=== PATIENT | male | born 1955 | race Caucasian/White ===

== ENCOUNTER 2017-10-22 17:11 | Emergency (ER) | payer OTHER, SELFPAY ==
[2017-10-22] VITALS (55 sets, daily range): BP systolic 96–149; BP diastolic 51–73; PULSE 83–111; RESP 8–48; TEMP 36.4; O2SAT 87–99
--- NOTE | 2017-10-22 17:34 | DI.RAD_ITS ---
SYMPTOM/DIAGNOSIS: COUGH, SOB PORTABLE AP CHEST: Emphysematous changes are noted in the lungs. There is no pneumothorax or pleural effusion. The heart is unremarkable. The mediastinum is unremarkable. No bony abnormality is seen. Note is made of metal fragments superimposed over the left axilla, unchanged. Prominent central arteries are consistent with pulmonary arterial hypertension. SUMMARY: No evidence of acute cardiopulmonary disease.
[2017-10-22] MEDS: methylPREDNISolone SUCC 125 MG VIAL (17:35)
[2017-10-22] MEDS: Albuterol/Ipratropium 3 ML UPD VIAL 9 ML (17:35)
[2017-10-22] MEDS: Albuterol 2.5 MG/3 ML INH SOLN VIAL 5 MG (17:35)
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
[2017-10-22] MEDS: Albuterol 2.5 MG/3 ML INH SOLN VIAL UPD (17:39)
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
[2017-10-22 17:48] LABS: Abs Immature Grans 0.01 k/cumm (0.0-0.09); Absolute Basophil Count 0.03 k/cumm (0.0-0.2); Absolute Lymphocyte Count 0.97 k/cumm (1.2-3.4); Absolute Neutrophil Count 5.07 k/cumm (1.2-6.7); Basophils % 0.4; Eosinophils % 1.5; HCT 38.8 % (40.0-50.0); HGB 13.2 g/dL (13.5-17.5); Immature Grans % 0.1; Lymphocytes % 14.1; Mean Corpuscular Hemoglobin 31.5 pg (27.0-33.0); Mean Corpuscular Volume 92.6 fL (80-95); Mean Platelet Volume 9.2 fL (8.0-11.0); Monocytes % 10.2; Neutrophils % 73.7; Platelet Count 221 x1000/uL (130-400); RBC 4.19 m/cumm (4.50-6.00); RBC Distribution Width 13.1 % (11.8-14.1); White Blood Cell Count 6.88 k/cumm (4.4-10.8)
[2017-10-22 18:10] LABS: ALT 18 U/L (12-78); AST 11 U/L (15-37); Albumin 3.9 g/dL (3.4-5.0); Alkaline Phosphatase 44 U/L (46-116); Anion Gap 6.8 mmol/L (3-11); BUN 23 mg/dL (7-18); Bilirubin, Total 0.3 mg/dL (0.2-1.0); CO2 30.2 mmol/L (21.0-32.0); CREATININE 1.02 mg/dL (0.70-1.30); Calcium 8.9 mg/dL (8.5-10.1); Chloride 103 mmol/L (98-107); Glucose 137 mg/dL (70-100); Magnesium 1.7 mg/dL (1.8-2.4); NT-proBNP 212 pg/mL; Potassium 3.9 mmol/L (3.5-5.1); Sodium 140 mmol/L (136-145); Total Protein 7.1 g/dL (6.4-8.2)
[2017-10-22 18:12] LABS: Troponin I < 0.02 ng/mL (0.00-0.06)
[2017-10-22 18:21] LABS: D-Dimer 605 ng/mlFEU (<500)
--- NOTE | 2017-10-22 18:59 | DI.VRAD_ITS ---
EXAM: XR Chest, 1 View CLINICAL HISTORY: 62 years old, male; Signs and symptoms; Cough and shortness of breath; Patient HX: Cough, SOB; Additional info: R/O acute disease TECHNIQUE: Frontal view of the chest. COMPARISON: CR - CHEST 2 VIEWS PA,LAT 02/12/2017 1:24 PM FINDINGS: Lungs: Severe bilateral apical pulmonary emphysema. Hyperexpanded lungs consistent with COPD. No pulmonary consolidation. Pleural space: Unremarkable. No pneumothorax or pleural effusion. Heart: Unremarkable. No cardiomegaly. Mediastinum: Unremarkable. The mediastinal contour is unremarkable. Bones/joints: Unremarkable. No acute osseous abnormality identified. Soft tissues: Metal fragments superimposed over the left axilla, unchanged. Vasculature: Prominent central pulmonary arteries consistent with pulmonary arterial hypertension. IMPRESSION: No acute findings. Dictated and Authenticated by: Agapito Arzate MD. Ordering:JERARDO LUNSFORD MD
--- NOTE | 2017-10-22 19:14 | DI.CT_ITS ---
SYMPTOM/DIAGNOSIS: SOB, ELEVATED D DIMER, ? PE PE CHEST CT: CT angiography was performed with multi slice acquisition and multi planar and 3D reconstruction. The study was conducted according to the usual protocol with contrast enhancement. There is no evidence of pulmonary emboli. Atherosclerotic changes involving the aorta are identified. There is no aneurysm. Right lower lobe atelectasis versus pneumonia is demonstrated. Diffuse paraseptal and centrilobular pulmonary emphysema is demonstrated. There is no evidence of a pleural effusion or pneumothorax. The heart is unremarkable. No acute bony abnormality is seen. The soft tissues are unremarkable. There is no evidence of lymphadenopathy. SUMMARY: No evidence of PE. Right lower lobe atelectasis versus pneumonia is demonstrated.
[2017-10-22] MEDS: Albuterol 2.5 MG/3 ML INH SOLN VIAL 7.5 MG UPD (19:54)
[2017-10-22] MEDS: MAGNESIUM SULFATE 1 GM/100 ML BAG IVPB (19:55)
[2017-10-22] MEDS: Omnipaque 350 MG/ML 100 ML BTL IJ (20:30)
--- NOTE | 2017-10-22 20:37 | DI.VRAD_ITS ---
EXAM: CT Angiography Chest With Intravenous Contrast CLINICAL HISTORY: 62 years old, male; Signs and symptoms and abnormal findings; Abnormal diagnostic tests; Elevated d-dimer; Shortness of breath; Patient HX: SOB, elevated d-dimer; Additional info: R/O pe TECHNIQUE: Axial computed tomographic angiography images of the chest with intravenous contrast using pulmonary embolism protocol. MIP reconstructed images were created and reviewed. COMPARISON: SC - XR PORTABLE CHEST AP 10/22/2017 6:41 PM FINDINGS: Pulmonary arteries: Unremarkable. No pulmonary embolism. Aorta: Mild atherosclerosis of the thoracic aorta and origin of the great vessels. No thoracic aortic aneurysm. Lungs: Right lower lobe atelectasis versus small pneumonia. Diffuse paraseptal and centrilobular pulmonary emphysema. No mass. Pleural space: Unremarkable. No significant effusion. No pneumothorax. Heart: Unremarkable. No cardiomegaly. No significant pericardial effusion. No evidence of RV dysfunction. Bones/joints: No acute fracture. No dislocation. Soft tissues: Unremarkable. Lymph nodes: Unremarkable. No enlarged lymph nodes. IMPRESSION: 1. No pulmonary arterial embolism. 2. Right lower lobe atelectasis versus pneumonia. Dictated and Authenticated by: Agapito Arzate MD. Ordering:JERARDO LUNSFORD MD
[2017-10-22] MEDS: Albuterol 2.5 MG/3 ML INH SOLN VIAL 5 MG UPD (22:04)
[2017-10-22] MEDS: LEVOFLOXACIN 500 MG, LEVOFLOXACIN 250 MG 750 MG PO (22:08)
[2017-10-23] MEDS: Albuterol HFA 8 GM 60 PUFF INH IH (04:31)
--- NOTE | 2017-10-24 09:30 | PDOC.ERCMPRO ---
Care Management Progress Note 10/24/17-Pt. was seen for SOB by Dr. Amari Flowers. F/U request was faxed to [facility] as Dr. Schmitz is Pt's PCP. Pt has been scheduled for f/u on 10/24/17.
== END 2017-10-23 00:02 | disposition home or self-care (01) ==
PROVIDERS: Emergency Provider Physician Assistant; PCP Internal Medicine
DX: J44.0 Chronic obstructive pulmonary disease with (acute) lower respiratory infection (principal); J18.9 Pneumonia, unspecified organism; J20.9 Acute bronchitis, unspecified; R09.02 Hypoxemia; J06.9 Acute upper respiratory infection, unspecified; R79.1 Abnormal coagulation profile; E83.42 Hypomagnesemia; Z87.891 Personal history of nicotine dependence; I10 Essential (primary) hypertension
CPT/HCPCS: 36415; 71275; 80053; 93005; 94640; 96365; 96375; 99285; 71045; 83735; 83880; 84484; 85025; 85379; 93010; J2930; J3475; J3490; J7613; J7620

== ENCOUNTER 2017-11-08 01:52 | Outpatient (CLI) | payer OTHER, SELFPAY ==
--- NOTE | 2017-11-08 | PFT_ITS ---
PLEASE SEE SCANNED DOCUMENT FOR DETAILS PULMONARY FUNCTION TEST REPORT Patient identification - Jaison Quezada DATE OF - 53 DATE OF SERVICE - November 08, 2017 REQUESTING PROVIDER Lisa Barillas NP INTERPRETATION OF STUDY Spirometry shows severe obstructive airways disease with significant bronchodilator response. LUNG VOLUMES - Lung volumes show no evidence of restriction. There is moderate hyperinflation and air trapping. DIFFUSION CAPACITY - Mildly reduced even when corrected to alveolar volume. AIRWAY RESISTANCE - Elevated. IMPRESSION Severe obstructive airways disease with significant bronchodilator response. This is associated with moderate hyperinflation and air trapping and mild diffusion defect. Clinical correlation recommended. Lucinda Mcginnis M.D. AMBER/jamie T - 11/12/2017 SEE SCANNED DOCUMENT IN THE EMR FOR DATA AND GRAPHS
[2017-11-08] MEDS: Albuterol HFA 18 GM 200 PUFF INH IH (13:34)
[2017-11-08] MEDS: Inhaler, Assist Device 1 EACH MC (13:34)
== END 2017-11-08 02:12 ==
PROVIDERS: PCP Internal Medicine
DX: J44.1 Chronic obstructive pulmonary disease with (acute) exacerbation (principal)
CPT/HCPCS: 94060; 94150; 94726; 94729

== ENCOUNTER 2017-11-21 11:43 | Outpatient (CLI) | payer OTHER, SELFPAY ==
[2017-11-22 11:22] LABS: PSA, Screening 1.6 ng/ml (0-4.5)
== END 2017-11-21 12:03 ==
PROVIDERS: PCP Internal Medicine; Visit Provider Internal Medicine
DX: J44.9 Chronic obstructive pulmonary disease, unspecified (principal); R35.1 Nocturia; Z12.5 Encounter for screening for malignant neoplasm of prostate
CPT/HCPCS: 36415; 84153

== ENCOUNTER 2018-02-28 17:45 | Emergency (ER) | payer OTHER, SELFPAY ==
--- NOTE | 2018-02-28 17:54 | DI.RAD_ITS ---
SYMPTOM/DIAGNOSIS: WHEEZE, CRACKLES, ? PNEUMONIA PA AND LATERAL CHEST: Comparison is made with 02/12/17. Heart size and pulmonary vasculature are within normal limits. There is COPD. No infiltrates, effusions or pneumothoraces are identified. There is again seen metallic foreign body in the soft tissues of the left axilla. The bones are intact. IMPRESSION: No acute pulmonary process.
[2018-02-28 17:57] VITALS: BP 146/73; PULSE 72; RESP 18; TEMP 36.6; O2SAT 99
[2018-02-28] MEDS: Albuterol/Ipratropium 3 ML UPD VIAL 9 ML UPD (18:01)
[2018-02-28] MEDS: methylPREDNISolone SUCC 125 MG VIAL IVP (18:16)
[2018-02-28 18:17] VITALS: RESP 20
[2018-02-28 18:27] LABS: HCO3 (Venous) 32 mmol/L (22-28); TCO2 (Venous) 33 mmol/L (22-29); pCO2 (Venous) 59 mm/Hg (34-47); pH (Venous) 7.34 (7.32-7.43); pO2 (Venous) 28 mm/Hg (28-44)
[2018-02-28 18:28] LABS: O2 Sat (Venous) 46 % (70-80)
[2018-02-28 18:31] LABS: Abs Immature Grans 0.01 k/cumm (0.0-0.09); Absolute Basophil Count 0.04 k/cumm (0.0-0.2); Absolute Eosinophil Count 0.52 k/cumm (0.0-0.7); Absolute Lymphocyte Count 2.25 k/cumm (1.2-3.4); Absolute Monocyte Count 0.67 k/cumm (0.11-0.7); Basophils % 0.6; Eosinophils % 7.5; HCT 41.4 % (40.0-50.0); HGB 13.9 g/dL (13.5-17.5); Immature Grans % 0.1; Lymphocytes % 32.7; Mean Corp. HGB Concentration 33.6 g/dL (32.0-36.0); Mean Corpuscular Hemoglobin 31.2 pg (27.0-33.0); Mean Corpuscular Volume 92.8 fL (80-95); Mean Platelet Volume 9.1 fL (8.0-11.0); Monocytes % 9.7; Neutrophils % 49.4; Platelet Count 257 x1000/uL (130-400); RBC 4.46 m/cumm (4.50-6.00); RBC Distribution Width 13.6 % (11.8-14.1); White Blood Cell Count 6.89 k/cumm (4.4-10.8)
[2018-02-28 18:43] LABS: ALT 23 U/L (12-78); AST 13 U/L (15-37); Albumin 4.1 g/dL (3.4-5.0); Alkaline Phosphatase 49 U/L (46-116); Anion Gap 6.8 mmol/L (3-11); BUN 23 mg/dL (7-18); Bilirubin, Total 0.2 mg/dL (0.2-1.0); CO2 33.2 mmol/L (21.0-32.0); CREATININE 0.84 mg/dL (0.70-1.30); Calcium 9.5 mg/dL (8.5-10.1); Chloride 104 mmol/L (98-107); Glucose 87 mg/dL (70-100); Potassium 3.8 mmol/L (3.5-5.1); Sodium 144 mmol/L (136-145); Total Protein 7.6 g/dL (6.4-8.2)
[2018-02-28 18:47] LABS: Troponin I < 0.02 ng/mL (0.00-0.06)
--- NOTE | 2018-02-28 19:07 | DI.VRAD_ITS ---
EXAM: XR Chest, 2 Views EXAM DATE/TIME: 02/28/2018 5:55 PM CLINICAL HISTORY: 62 years old, male; Signs and symptoms; Cough TECHNIQUE: XR of the chest, 2 views. COMPARISON: SC XR PORTABLE CHEST AP 10/22/2017 6:41 PM FINDINGS: Lungs: Hyperexpanded lungs consistent with COPD. No pulmonary consolidation. Prominent central pulmonary arteries consistent with pulmonary arterial hypertension. Pleural space: Unremarkable. No pleural effusion. No pneumothorax. Heart/Mediastinum: Unremarkable. No cardiomegaly. Bones/joints: Unremarkable. Other findings: Metal fragments superimposed over the left axilla unchanged. IMPRESSION: No acute abnormality. Dictated and Authenticated by: Shahbaz Lucia MD. Ordering:RICARDO Ervin MD
[2018-02-28] MEDS: Albuterol/Ipratropium 3 ML UPD VIAL (19:20)
--- NOTE | 2018-02-28 19:22 | W.ED.GENAD ---
Discharge Plan Disposition Patient Disposition: HOME Condition: Good Discharge Details Chief Complaint: SOB Clinical Impression: COPD exacerbation Primary Care Provider: Coby Yost ED Provider: Arcadio Becerra Home Meds and New Rx's Prescriptions: New prednisone 50 MG tablet 50 mg PO DAILY Qty: 5 RF: 0 albuterol sulfate 90 mcg/actuation HFA aerosol inhaler 1 puff IH Q6H PRN (Reason: bronchospasm) Qty: 8 RF: 0 No Action albuterol sulfate 90 mcg/actuation HFA aerosol inhaler 2 puff IH QID RF: 0 metoprolol succinate 50 mg tablet extended release 24 hr 50 mg PO DAILY Qty: 90 RF: 3 nicotine (polacrilex) [Nicorette] 4 MG gum 1 piece of gum PO Q2H PRN RF: 0 ibuprofen 200 MG tablet 4 tab PO PRN RF: 0 ibuprofen-diphenhydramine cit [Advil PM] 1 EACH tablet 2 ea PO DAILY RF: 0 acetaminophen [Tylenol] 325 MG tablet 650 mg PO Q6H PRN PRNQty: 30 RF: 0 Discharge Instructions Instructions: COPD (Chronic Obstructive Pulmonary Disease) (ED) Additional Instructions: Please take your inhaler every 6 hours as directed. Please take the prednisone as directed. If you notice any worsening of your symptoms, or any new symptoms such as vomiting, diarrhea, fever, chills, shortness of breath, chest pain, numbness, weakness, or fainting , please return immediately to the emergency department for reevaluation. Please follow up with your primary care provider as soon as possible for reassessment and reevaluation. As always, it was a pleasure participating in your medical care today. Referrals: Coby Yost MD [Primary Care Provider] - Discharge Data Discharge Date/Time-TO BE ENTERED AT DEPARTURE: 02/28/18 21:52 Medical Decision Making This is a pleasant 62-year-old male who presents for evaluation of shortness of breath and cough. Cough is productive with a small amount of yellow sputum, he denies any systemic symptoms of fever or chills. He has associated shortness of breath, but denies any cardiac red flags of cardiac history, chest pain, chest pressure. Unfortunately the patient ran out of his albuterol today, which did not help his clinical scenario. Physical exam demonstrates notable wheezes throughout. Patient's signs and symptoms are clinically consistent with a COPD exacerbation and clinically inconsistent with ACS, PE, or severe pneumonia. Because of the patient's age and risk factors L, x-ray was ordered which shows hyperexpanded lungs consistent with COPD with no evidence of pneumonia or consolidation. Additionally the patient's iliac workup was benign. Laboratory workup demonstrates a very small amount of retained CO2, however no evidence of acidemia. Electrolytes are benign, no significant white count or bandemia suggestive of pneumonia. Patient was given 3 breathing treatments and reassessment demonstrated notable improvement of lung sounds. Patient states that he feels much better than before. I did discuss with the patient potential overnight admission versus discharge and the patient made it very clear that he would like to go home, and would not want to stay overnight tonight. I do think this is reasonable, however prior to discharge we did do an ambulatory pulse ox which showed no evidence of hypoxemia, and oxygen saturations maintained greater than 90% during his entire ambulation throughout the emergency department. Patient will be discharged home with an inhaler, and steroids for COPD exacerbation. I have extensively reviewed the treatment plan and discharge instructions with the patient. I have addressed all patient concerns at this time. The patient was made aware of what symptoms to monitor for that would warrant a return to the emergency department. Discussed the plan with the patient, they demonstrate verbal understanding and agreement with our assessment and plan at this time. FINDINGS: Lungs: Hyperexpanded lungs consistent with COPD. No pulmonary consolidation. Prominent central pulmonary arteries consistent with pulmonary arterial hypertension. Pleural space: Unremarkable. No pleural effusion. No pneumothorax. Heart/Mediastinum: Unremarkable. No cardiomegaly. Bones/joints: Unremarkable. Other findings: Metal fragments superimposed over the left axilla unchanged. IMPRESSION: No acute abnormality. Thank you for allowing us to participate in the care of your patient. Dictated and Authenticated by: Shahbaz Lucia DO 02/28/2018 7:07 PM Eastern Time ([place] & [place]) HPI General Date/Time Provider Initiated Documentation: 02/28/18 17:47. HPI Narrative: This is a very pleasant 62-year-old male with a past medical history of COPD who presents today for shortness of breath and cough. Patient states that his symptoms began 3 days ago with a cough with productive yellow sputum. He has been using his albuterol inhaler more often because of this and unfortunately just ran out of his albuterol inhaler this morning. The patient denies any chest pain, chest heaviness, arm, neck, or shoulder pain. He denies any exertional chest discomfort. Patient states that his symptoms are similar to his previous COPD exacerbations. Patient denies any recent steroids or recent antibiotics. He has no additional complaints at this time. Denies PE risk factors such as recent long car rides, immobilization, recent surgery, prior history of DVT or PE, family history of PE or DVT, morbid obesity, exogenous estrogen and smoking, hemoptysis, history of cancer. He denies any cardiac history, or family history of cardiac disease. He denies any recent IV or illicit drug use. Related Data Home Medications Medication Instructions Recorded Confirmed ibuprofen 4 tab PO PRN 06/12/12 02/28/18 nicotine (polacrilex) [Nicorette] 1 piece of gum PO Q2H PRN piece 06/12/12 02/28/18 of gum ibuprofen-diphenhydramine cit 2 ea PO DAILY 12/08/15 02/28/18 [Advil PM] acetaminophen [Tylenol] 650 mg PO Q6H PRN PRN #30 tab 08/09/17 02/28/18 albuterol sulfate HFA 90 2 puff IH QID 10/24/17 02/28/18 mcg/actuation aerosol inhaler metoprolol succinate ER 50 mg 50 mg PO DAILY #90 tab 11/21/17 02/28/18 tablet,extended release 24 hr albuterol sulfate 1 puff IH Q6H PRN #8 gm 02/28/18 prednisone 50 mg PO DAILY #5 tab 02/28/18 Previous Rx's Medication Instructions Recorded acetaminophen [Tylenol] 650 mg PO Q6H PRN PRN #30 tab 08/09/17 metoprolol succinate ER 50 mg 50 mg PO DAILY #90 tab 11/21/17 tablet,extended release 24 hr albuterol sulfate 1 puff IH Q6H PRN #8 gm 02/28/18 prednisone 50 mg PO DAILY #5 tab 02/28/18 Allergies Allergy/AdvReac Type Severity Reaction Status Date / Time No Known Allergies Allergy Unverified 02/28/18 18:19 General Stated Complaint: SOB BARBARA: 2 Review of Systems Review of Systems All systems reviewed & are unremarkable except as noted in HPI and below PFSH Social History adopted: No foster care: No household members: other details: 3 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 3.ENT: Atraumatic external nose and ears. Moist MM. Neck: Symmetric, trachea midline, No thyromegaly. 4.CVS: +S1/S2, No murmurs or gallops. Peripheral pulses 2+ and equal in all extremities. Brisk capillary refill in all extremities. 5.RESP: Unlabored respiratory effort. Reduced breath sounds throughout with notable wheeze on the left and the right. No rales or rhonchi. 6.GI: Soft, Nontender/Nondistended, No hepatosplenomegaly. No guarding or rebound. 7.MSK: Normocephalic/Atraumatic, Extremities w/o deformity or ttp No cyanosis or clubbing, Normal movement of all extremities, no calf tenderness 8.Skin: Warm, Dry. No rashes or lesions. 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 Sensation grossly intact, no focal neurologic deficits. 10.Psych: (AAO) x3. Appropriate mood and affect Course Vital Signs Temperature 36.6 C 02/28/18 17:57 Pulse 72 02/28/18 17:57 Respiratory Rate 18 02/28/18 17:57 Blood Pressure 146/73 H 02/28/18 17:57 Pulse Oximetry 99 02/28/18 17:57 Temperature 36.6 C 02/28/18 17:57 Temperature Source Temporal Artery Scan 02/28/18 17:57 Pulse 72 02/28/18 17:57 Respiratory Rate 20 02/28/18 18:17 Respiratory Effort Accessory Muscle Use 02/28/18 18:17 Respiratory Depth Shallow 02/28/18 18:17 Respiratory Pattern Tachypnea 02/28/18 18:17 Blood Pressure 146/73 H 02/28/18 17:57 Blood Pressure Position Sitting 02/28/18 17:57 Pulse Oximetry 99 02/28/18 17:57 Oxygen Delivery Method Aerosol Mask 02/28/18 17:57 Oxygen Flow Rate 5 02/28/18 17:57 Pain Level 0 02/28/18 18:17 Lab/Test Results Lab/Test Results: Laboratory Tests Range/Units 02/28/18 02/28/18 02/28/18 18:08 18:08 18:08 WBC (4.4-10.8) k/cumm 6.89 RBC (4.50-6.00) m/cumm 4.46 L Hgb (13.5-17.5) g/dL 13.9 Hct (40.0-50.0) % 41.4 MCV (80-95) fL 92.8 MCH (27.0-33.0) pg 31.2 MCHC (32.0-36.0) g/dL 33.6 RDW (11.8-14.1) % 13.6 Plt Count (130-400) x1000/uL 257 MPV (8.0-11.0) fL 9.1 Immature Gran % 0.1 Neutrophils % 49.4 Lymphocytes % 32.7 Monocytes % 9.7 Eosinophils % 7.5 Basophils % 0.6 Absolute Neutrophils (1.2-6.7) k/cumm 3.40 Absolute Lymphocytes (1.2-3.4) k/cumm 2.25 Absolute Monocytes (0.11-0.7) k/cumm 0.67 Absolute Eosinophils (0.0-0.7) k/cumm 0.52 Absolute Basophils (0.0-0.2) k/cumm 0.04 VBG pH (7.32-7.43) 7.34 VBG pCO2 (34-47) mm/Hg 59 H VBG pO2 (28-44) mm/Hg 28 VBG HCO3 (22-28) mmol/L 32 H VBG Total CO2 (22-29) mmol/L 33 H VBG O2 Saturation (70-80) % 46 L VBG Base Excess (-3-3) mmol/L 6.0 H Sodium (136-145) mmol/L 144 Potassium (3.5-5.1) mmol/L 3.8 Chloride (98-107) mmol/L 104 Carbon Dioxide (21.0-32.0) mmol/L 33.2 H Anion Gap (3-11) mmol/L 6.8 BUN (7-18) mg/dL 23 H Creatinine (0.70-1.30) mg/dL 0.84 Estimated GFR/1.73 m2 (mL/min/1.73m2) >= 60.00 Glucose (70-100) mg/dL 87 Calcium (8.5-10.1) mg/dL 9.5 Total Bilirubin (0.2-1.0) mg/dL 0.2 AST (15-37) U/L 13 L ALT (12-78) U/L 23 Alkaline Phosphatase (46-116) U/L 49 Troponin I (0.00-0.06) ng/mL < 0.02 Total Protein (6.4-8.2) g/dL 7.6 Albumin (3.4-5.0) g/dL 4.1
--- NOTE | 2018-02-28 19:24 | NUR.NOTE ---
walking trial pt O2 remained above 90 % on RA Nursing Note:
[2018-02-28 21:50] VITALS: BP 144/76; PULSE 70; RESP 18; O2SAT 99
== END 2018-02-28 21:52 | disposition home or self-care (01) ==
LOC: ER 20:21
PROVIDERS: Emergency Provider Student in an Organized Health Care Education/Training Program; PCP Internal Medicine
DX: J44.1 Chronic obstructive pulmonary disease with (acute) exacerbation (principal); Z87.891 Personal history of nicotine dependence; I10 Essential (primary) hypertension
CPT/HCPCS: 36415; 80053; 82805; 93005; 94640; 96374; 99285; 71046; 84484; 85025; 93010; J2930; J7620

== ENCOUNTER 2019-11-14 09:49 | Day surgery (SDC) | payer OTHER, SELFPAY ==
[2019-11-14 10:34] VITALS: BP 122/80; PULSE 81; RESP 16; TEMP 36.2; O2SAT 96
[2019-11-14] MEDS: Lactated Ringers 1,000 ML 80 ML IV ×2 (10:55→11:48)
--- NOTE | 2019-11-14 11:30 | W.PM.DSUDISC ---
Discharge Plan Disposition Patient Disposition: HOME Condition: Good Discharge Details Reason For Visit: Colonoscopy Attending Provider: Hafsa Nicholson Primary Care Provider: Tiera Blackwood Home Meds and New Rx's Prescriptions: Continued albuterol sulfate [ProAir HFA] 90 mcg/actuation HFA aerosol inhaler 2 puff IH Q6H PRN (Reason: shortness of breath or wheezing) Qty: 8.5 RF: 2 nicotine (polacrilex) [Nicorette] 4 MG gum 1 piece of gum PO Q2H PRN RF: 0 ibuprofen 200 MG tablet 4 tab PO PRN RF: 0 Flovent HFA 110 mcg/actuation HFA aerosol inhaler 2 puff IH BID Qty: 12 RF: 5 Anoro Ellipta 62.5-25 mcg/actuation blister with device 1 inh IH Q24H Qty: 60 RF: 8 amlodipine 10 mg tablet 10 mg PO DAILY Qty: 90 RF: 3 acetaminophen [Tylenol] 325 MG tablet 650 mg PO Q6H PRN PRNQty: 30 RF: 0 Discharge Instructions Additional Instructions: Findings: Three polyps were removed. My office will contact you with biopsy results. Follow up: Plan for a colonoscopy in 3-5 years pending biopsy results. Please call if you develop: fevers >101.5 Nausea or Vomiting Abdominal pain that is not transient DAY SURGERY UNIT POST COLONOSCOPY INSTRUCTIONS 1. Because there will be medication in your system for the next 24 hours, you may feel a little sleepy. Your coordination will be affected. Therefore: a. Do not drive or operate dangerous equipment for 24 hours. b. Do not drink alcohol beverages for 24 hours (not even beer). c. Plan to go home and rest for the day. 2. Generally there are no restrictions on your activity after a day or so has gone by, but you may feel a bit fatigued for a few days. 3 After you arrive home you may have a light meal and return to a normal diet as you can tolerate it without feeling sick to your stomach. 4. After surgery, you may feel pain or discomfort. This should be only transient, but if it persists please contact your doctor. 5. If there are any questions regarding the findings of your procedure, please feel free to contact your doctor. 6. If you are unable to contact your doctor with a problem, contact the hospital at [phone]. 7. Continue all your regular medications unless directed otherwise. I understand the above instructions and have no questions. Signature of Patient or Responsible Adult Escort Date/Time Name of Responsible Adult Escort Signature of Nurse Date/Time Activity:: Activity as Tolerated Diet:: As Tolerated Discharge Orders Discharge Orders: Discharge Order (Routine); Ordered 11/14/19 Ordered By: Hafsa Nicholson DS: Diagnosis Discharge Diagnosis (1) Colon polyps: Status: Acute
--- NOTE | 2019-11-14 11:32 | W.COLOREPORT ---
Date of service: 11/14/19 Time of Service: 12:38 Colonoscopy Report Date of procedure: 11/14/19 Pre-op diagnosis general: History of polyps Post-op diagnosis procedure note: other (Colon polyps, diverticulosis) Procedure: Colonoscopy with cold forceps polypectomy and snare polypectomy Surgeon: Hafsa Nicholson Anesthesia proc note operative: MAC Indications: This 64 year old man presents for colonoscopy. His prior in 2014 was normal. He had tubular adenomas times 4 removed in 2008. No symptoms or FH colon cancer. Procedure Description: The patient was placed in the left Rick position. Propofol was titrated to sedation. Digital rectal examination revealed no abnormalities. The scope was advanced to the cecum without difficulty. The ileocecal valve and appendiceal orifice were clearly identified. The prep was good. The scope was slowly withdrawn over the course of greater than 6 minutes. In the ascending colon there were two areas with some what vague sessile polyps that were removed with the cold forceps and sent in the same specimen container. No abnormalities were seen in the transverse, descending colon. A less than 1cm polyp was removed from the sigmoid colon with the snare. The rectum was normal including on retroflexed view. The patient tolerated the procedure well and was stable to recovery. Plan for follow up colonoscopy in 3-5 depending on biopsy results.
--- NOTE | 2019-11-14 12:00 | BOWEL_PTH ---
PATIENT: Jaison Quezada LOC: [facility] U#:[id number] AGE/SX: 64/M ROOM: RE11/14/[address]: Hafsa Nicholson MD : 1955 BED: DIS: 11/14/2019 SPEC #: [id number] RECD: 11/14/19 12:56 STATUS: SATNAM REQ #: [id number] JULIOCESAR: 11/14/19 12:[address]: Hafsa Nicholson DEPT: Surgical Specimen RECD BY: Rekha Davies ENTERED: 11/14/19 12:58 SP TYPE: Bowel OTHR DR: Tiera Blackwood, PhD CHEMICAL ANALYST Tissues: 1 - BIOPSY BOWEL 2 - BIOPSY BOWEL Procedures: GROSS AND MICRO LEVEL 4 Comments: [id number]
[2019-11-14 12:56] VITALS: BP 126/79; PULSE 68; RESP 16; TEMP 36.4; O2SAT 97
== END 2019-11-14 13:35 | disposition home or self-care (01) ==
PROVIDERS: PCP Nurse Practitioner; Visit Provider Surgery
PROC: 0DJD8ZZ Inspection of Lower Intestinal Tract, Via Natural or Artificial Opening Endoscopic (ICD-10-PCS; CPT 45378; principal; 2019-11-14 11:30)
DX: Z12.11 Encounter for screening for malignant neoplasm of colon (principal); D12.2 Benign neoplasm of ascending colon; D12.5 Benign neoplasm of sigmoid colon; Z86.010 Personal history of colon polyps; I10 Essential (primary) hypertension; J44.9 Chronic obstructive pulmonary disease, unspecified; K57.30 Diverticulosis of large intestine without perforation or abscess without bleeding
CPT/HCPCS: 45385; 45380; 88305; J2001

== ENCOUNTER 2020-01-15 04:43 | Outpatient (CLI) | payer OTHER, SELFPAY ==
[2020-01-17 15:59] LABS: COVID-19 RT-PCR Result NEGATIVE (Negative)
== END 2020-01-15 05:03 ==
PROVIDERS: PCP Nurse Practitioner; Visit Provider Urology
DX: Z01.818 Encounter for other preprocedural examination (principal); Z11.59 Encounter for screening for other viral diseases
CPT/HCPCS: U0003

== ENCOUNTER 2020-01-19 10:02 | Day surgery (SDC) | payer OTHER, SELFPAY ==
[2020-01-19 10:26] VITALS: BP 137/74; PULSE 67; RESP 18; TEMP 37; O2SAT 94
[2020-01-19] MEDS: Lactated Ringers 1,000 ML 80 ML IV (10:40)
--- NOTE | 2020-01-19 12:01 | W.PM.HP.N ---
Date of service: 01/19/20 Time of Service: 13:36 Assessment and Plan Assessment and plan (1) History of bladder cancer: Status: Acute Assessment and plan: For cystoscopy with bladder biopsy and fulguration of the visible lesion. We will plan on instilling in dose of mitomycin-C into the bladder immediately after the procedure. History of Present Illness History of Present Illness Chief Complaint: Bladder tumor Narrative: This is a 64 year old man who has a history of bladder cancer. on his most recent surveillance cystoscopy, we identified a papillary lesion adjacent to his previous resection scar. he presents for biopsy/fulguration and instillation of Mitomycin C into the bladder. Review of Systems Narrative: No fevers or chills No vision change or dysphasia No diabetes or thyroid Hx COPD. No hemoptysis No chest pain or palpitations No nausea, vomiting, hepatitis, ulcers, jaundice, diarrhea or constipation No seizures, strokes or peripheral neuropathy No bleeding disorders or anemia No gout PFSH Medical History COPD (chronic obstructive pulmonary disease) Hypertension Inguinal hernia without obstruction or gangrene (07/04/17) Surgical History Bilateral Inguinal Hernia Repair Colonoscopy - IV Sedation 2014-hyperplastic polyp Family History Mother No problems noted. Father Essential hypertension Brother No problems noted. Son , SIDS 6 WEEKS OLD No problems noted. Daughter Depression Daughter No problems noted. Daughter No problems noted. 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 Pets and animals: Yes Pets and animals: cat(s) and dog(s) What type of physical activity do you participate in: none Isabel/Shinto: Synagogue Special isabel needs: No Seatbelt use: sometimes Working smoke detector in home: No Fire extinguisher in home: Yes Do you feel safe at home: Yes Do you feel safe in your relationship?: Yes Meds Home Medications and Allergies Home Medications Medication Instructions Recorded Confirmed Type ibuprofen 4 tab PO PRN 06/12/12 01/16/20 History nicotine (polacrilex) [Nicorette] 1 piece of gum PO Q2H PRN piece 06/12/12 01/19/20 History of gum acetaminophen [Tylenol] 650 mg PO Q6H PRN PRN #30 tab 08/09/17 01/16/20 Rx albuterol sulfate 90 mcg/actuation 2 puff IH Q6H PRN #8.5 gm 05/22/18 01/19/20 Rx aerosol inhaler fluticasone propionate 110 2 puff IH BID #12 gm 04/01/19 01/19/20 Rx mcg/actuation HFA aerosol inhaler umeclidinium 62.5 mcg-vilanterol 1 inh IH Q24H #60 each 04/30/19 01/19/20 Rx 25 mcg/actuation powdr for inhalation amlodipine 10 mg tablet 10 mg PO DAILY #90 tab 11/11/19 01/19/20 Rx Allergies Allergy/AdvReac Type Severity Reaction Status Date / Time lisinopril AdvReac Severe Hyperkalemi Verified 01/19/20 10:23 a Exam Const General: cooperative and comfortable Neck Neck: supple Resp Effort & Inspection: normal respiratory effort Auscultation: clear to auscultation bilaterally Cardio Rate: regular rate Rhythm: regular rhythm GI Palpation: soft and nontender Neuro General: patient alert, patient awake and patient oriented x3 Results Last Vital Signs Temp 37 C 01/19/20 10:26 Pulse 67 01/19/20 10:26 Resp 18 01/19/20 10:26 BP 137/74 01/19/20 10:26 Pulse Ox 94 01/19/20 10:26 COVID-19 Screening Have you, or household traveled for leisure in last 14 days?: No Had IN PERSON contact w/suspected or confirmed C-19 person: No
--- NOTE | 2020-01-19 14:15 | BLADDER_PTH ---
PATIENT: Jaison Quezada LOC: [facility] U#:[id number] AGE/SX: 64/M ROOM: RE01/19/[address]: Mihir Henry MD : 1955 BED: DIS: 01/19/2020 SPEC #: [id number] RECD: 01/19/20 17:41 STATUS: SATNAM REQ #: [id number] JULIOCESAR: 01/19/20 14:[address]: Mihir Henry DEPT: Surgical Specimen RECD BY: Marsha Jordan ENTERED: 01/19/20 17:42 SP TYPE: Bladder OTHR DR: Tiera Blakcwood, PhD HEAD COOK Tissues: 1 - BLADDER BIOPSY Procedures: GROSS AND MICRO LEVEL 4 Comments: [id number]
--- NOTE | 2020-01-19 14:40 | W.PM.DSUDISC ---
Discharge Plan Disposition Patient Disposition: HOME Condition: Stable Discharge Details Reason For Visit: bladder surgery Attending Provider: Mihir Henry Primary Care Provider: Tiera Blackwood Home Meds and New Rx's Prescriptions: No Action albuterol sulfate [ProAir HFA] 90 mcg/actuation HFA aerosol inhaler 2 puff IH Q6H PRN (Reason: shortness of breath or wheezing) Qty: 8.5 RF: 2 nicotine (polacrilex) [Nicorette] 4 MG gum 1 piece of gum PO Q2H PRN RF: 0 ibuprofen 200 MG tablet 4 tab PO PRN RF: 0 Flovent HFA 110 mcg/actuation HFA aerosol inhaler 2 puff IH BID Qty: 12 RF: 5 Anoro Ellipta 62.5-25 mcg/actuation blister with device 1 inh IH Q24H Qty: 60 RF: 8 amlodipine 10 mg tablet 10 mg PO DAILY Qty: 90 RF: 3 acetaminophen [Tylenol] 325 MG tablet 650 mg PO Q6H PRN PRNQty: 30 RF: 0 Discharge Instructions Additional Instructions: Leave catheter clamped with Mitomycin C in bladder for 1 to 2 hours then unclamp catheter, drain bladder and remove ramey Followup visit @ 2 weeks to review pathology results Activity:: Activity as Tolerated Shower/Bathe:: 24 hours Diet:: As Tolerated Discharge Orders Discharge Orders: Discharge Order (Routine); Ordered 01/19/20 Ordered By: Mihir Henry DS: Diagnosis Discharge Diagnosis (1) History of bladder cancer: Status: Acute
[2020-01-19] MEDS: Lidocaine 2% Jelly 6 ML SYR (14:41)
--- NOTE | 2020-01-19 14:43 | W.PM.OP ---
Date of service: 01/19/20 Time of Service: 14:43 Operative Note Operative Note DATE OF PROCEDURE: 01/19/20 PRE-OP DIAGNOSIS: Bladder cancer POST-OP DIAGNOSIS: same PROCEDURE: Cystoscopy, bladder biopsy with fulguration of biopsy site, instillation of mitomycin-C into the bladder SURGEON: Mihir Henry ANESTHESIA: other (General without intubation) ESTIMATED BLOOD LOSS: 5 PATHOLOGY: other (bladder biopsy) COMPLICATIONS: None Patient was transported to: same day Patient's condition: stable Implants: 16 Georgian Saldana catheter with 10 cc balloon Indications: This is a 64-year-old gentleman who has a history of urothelial cell carcinoma of the bladder. He had been followed with surveillance cystoscopies. At the time of his last cystoscopy, we found a papillary abnormality adjacent to his previous TUR scar. He presents for biopsy and fulguration of the area as well as an instillation of chemotherapy. Findings: Less than 2 cm papillary lesion on the left bladder wall adjacent to previous TUR scar Procedure Description: The patient was brought to the operating room on 01/19/2020. After successful induction of general anesthesia without intubation, he was placed in the dorsal lithotomy position. His genitalia was prepped and draped. 2% Xylocaine jelly was instilled into the urethra to act as a local anesthetic. A 22 Georgian rigid cystoscope was passed through the urethra into the bladder. The urethra was inspected using a 30 degree lens. The pendulous, bulbous and membranous urethra was appeared normal with no strictures. The prostatic urethra showed some lateral lobe enlargement but no papillary lesions The bladder neck was entered and the bladder mucosa was inspected. Both ureteral orifice ease appeared normal. No blood was seen coming from either side. The right bladder wall anterior bladder wall and posterior bladder wall all appeared normal. On the left bladder wall, there was a scar from a previous transurethral resection. On the lateral edge of the scar was a less than 2 cm papillary lesion. This lesion was biopsied with cold cup biopsy forceps. The biopsy was sent to pathology for permanent section. I then used a bipolar cautery with a Bugbee electrode to cauterize the biopsy site. Once hemostasis had been obtained, the cystoscope was removed. A 16 Georgian Saldana catheter was passed through the urethra into the bladder. The catheter balloon was inflated with 10 cc of sterile water. The bladder was drained. A solution containing 40 mg of mitomycin-C mixed in 40 mL of fluid was then instilled back into the bladder. The catheter was clamped leaving the solution in place. The patient tolerated this procedure well. He was taken back to the day surgery unit in stable condition.
[2020-01-19] MEDS: Phenazopyridine 200 MG TAB PO (15:05)
[2020-01-19 15:07] VITALS: BP 140/77; PULSE 56; RESP 18; TEMP 36.4; O2SAT 95
[2020-01-19 16:15] VITALS: BP 140/76; PULSE 60; RESP 18; TEMP 36.6; O2SAT 95
== END 2020-01-19 17:05 | disposition home or self-care (01) ==
PROVIDERS: PCP Nurse Practitioner; Visit Provider Urology
PROC: 0TBB8ZX Excision of Bladder, Via Natural or Artificial Opening Endoscopic, Diagnostic (ICD-10-PCS; CPT 52204; principal; 2020-01-19 12:30)
PROC: (CPT 52204; 2020-01-19 12:30)
DX: C67.2 Malignant neoplasm of lateral wall of bladder (principal); J44.9 Chronic obstructive pulmonary disease, unspecified; I10 Essential (primary) hypertension
CPT/HCPCS: 52204; 51720; 88305; NC

== ENCOUNTER 2021-01-04 16:29 | Outpatient (REF) | payer MEDICARE, SELFPAY ==
[2021-01-06 16:35] LABS: COVID-19 RT-PCR UVMMC Result Positive (Negative)
== END 2021-01-04 16:30 | disposition home or self-care (01) ==
LOC: LBN 16:29
PROVIDERS: PCP Nurse Practitioner; Visit Provider Nurse Practitioner
DX: Z20.822 Contact with and (suspected) exposure to COVID-19 (principal)
CPT/HCPCS: U0003

== ENCOUNTER 2021-01-06 12:41 | Inpatient (IN) | payer MEDICARE, SELFPAY ==
[2021-01-06] VITALS (67 sets, daily range): BP systolic 104–141; BP diastolic 63–81; PULSE 75–170; RESP 9–28; TEMP 35.6–38.1; O2SAT 90–98
--- NOTE | 2021-01-06 12:45 | RT.EKG_ITS ---
APPROVED REPORT Exam: Resting ECG Reason for Exam: sob Patient Location: E HR:137 bpm ECG Measurements Heart Rate 137 AXIS PA [id number] P [id number] QRSd 80 QRS 65 QT 282 T 51 QTc 426 Conclusion Atrial fibrillation...V-rate 104-190, irreg A-activity Low voltage, extremity leads...all extremity leads <0.5mV. Afib. No STEMI. I have reviewed and interpreted ECG and agree with software generated interpretation.
--- NOTE | 2021-01-06 12:46 | ED.GENADUL_ITS ---
Discharge Plan Disposition Patient Disposition: [facility] INPATIENT Condition: Serious Discharge Details Chief Complaint: SOB Clinical Impression: COVID, Atrial fibrillation with RVR Primary Care Provider: Tiera Blackwood ED Provider: Paul Meng Home Meds and New Rx's Prescriptions: No Action albuterol sulfate [ProAir HFA] 90 mcg/actuation HFA aerosol inhaler 2 puff IH Q6H PRN (Reason: shortness of breath or wheezing) Qty: 8.5 RF: 2 amlodipine 10 mg tablet 10 mg PO DAILY Qty: 90 RF: 3 nicotine (polacrilex) [Nicorette] 4 MG gum 1 piece of gum PO Q2H PRN RF: 0 ibuprofen 200 MG tablet 4 tab PO PRN RF: 0 Anoro Ellipta 62.5-25 mcg/actuation blister with device 1 inh IH Q24H Qty: 60 RF: 11 Flovent HFA 110 mcg/actuation HFA aerosol inhaler 2 puff IH BID Qty: 12 RF: 5 acetaminophen [Tylenol] 325 MG tablet 650 mg PO Q6H PRN PRNQty: 30 RF: 0 Medical Decision Making This is a 65-year-old gentleman who is not vaccinated for Covid, past medical history of COPD, hypertension, former smoker, known Covid exposure a couple of weeks ago presenting for Covid-like symptoms over the past 10 days. He presents in A. fib, heart rate in the 160s. O2 sat were in the high 90s on room air. He appears dry. Will obtain IV access, initiate both a septic and cardiac work-up, give IV fluid, and obtain CTA of the chest for further evaluation of potential PE. O2 sats are now in the low 90s on 2 L nasal cannula. 5 IV metoprolol given Heart rate is now in the 120s with the 5 IV metoprolol, remains A. fib No evidence of leukocytosis. INR 1.0 D-dimer elevated at 1638. Lactate of 2.8. Electrolytes unremarkable, creatinine 1.0 with a GFR greater than 60. Magnesium 2.4 ferritin 1374, lactate dehydrogenase 368, troponin less than 0.05 CRP 9.20 BNP 1288 procalcitonin 0.1. Heart rate remains in the 120s, a second dose of IV metoprolol given. He remains normotensive Covid resulted as positive CTA reveals Covid-like changes, no PE. Heart rate has been down in the 90s but was creeping back up into the 110s, a third dose of IV metoprolol, 5 mg. He remains in A. fib Patient given 10 IV Decadron and 200 remdesivir Given his new A. fib, Covid symptoms requiring supplemental oxygen, I will discuss the case with our hospitalist team for admission. Patient will likely require anticoagulation, potential echo, monitoring of his A. fib and continuation of supplemental oxygen case discussed with Dr. Ayoub who is agreeable to admission. He will write admission orders. He requests I give the patient 12.5 p.o. Lopressor now. This documentation was generated using [employer] Pan[employer] system, please disregard any oddities of phrase or misspellings. Medical Records Medical records reviewed: Yes I reviewed the patient's medical records. Imaging Data Radiologic Study: Attestation: I personally reviewed and interpreted this imaging study as follows: Imaging: CT Scan Radiologist's impression: Exam(s) CT CHEST PE CTA EXAM: CT CHEST PE CTA CLINICAL HISTORY: sob/tachy 140. TECHNIQUE: Imaging Protocol: CT angiography of the chest was performed using p monary embolus protocol. Multi planar reconstructions were performed. CONTRAST MATERIAL: Intravenous: Omnipaque 350 Contrast volume: 100 cc COMPARISON: CT Private^PE (Adult) from 10/22/2017 CR XR CHEST 2V PA LATERAL from 02/28/2018 FINDINGS: CHEST: PULMONARY ARTERIES: There are no intraluminal filling defects to suggest acute pulmonary emboli. LUNGS: Compared to 2018 there has been significant deterioration in the lung blake. There is interstitial-type infiltrate in the posterior segment of the right upper lobe and extending down through the superior segment of the right lower lobe down into the basal segments and also involving right middle lobe. No pleural effusion. In the opposite-left lung there is similar but lesser amount of infiltrate in the apical posterior segment of the left upper lobe and also in the lingular segment superior aspect. Also ext similar infiltrate in the posterior and lateral basal segments of the left lower lobe. No pleural effusions on either side. No significant focal findings in the trachea and mainstem bronchi. MEDIASTINUM: There is no hilar nor mediastinal adenopathy. Visualized thyroid unremarkable. CARDIAC: Heart size is upper normal. There is no pericardial effusion.Caliber of the thoracic aorta is within normal limits. There is no significant shift of the interventricular septum. PARTIALLY VISUALIZED UPPERMOST ABDOMEN: No obvious findings OSSEOUS: No significant osseous lesions.. IMPRESSION: 1. No evidence of acute pulmonary emboli. No evidence of pulmonary infarction.No pleural effusions. 2. Extensive bilateral interstitial and partially confluent infiltrates as described above. No associated pleural effusions nor intrathoracic adenopathy. Recommend Covid testing. 3. No significant osseous lesions Lab Data Lab results reviewed: Yes I reviewed the patient's lab results. Labs: 01/06/21 13:33 Blood Blood Culture - Pending 01/06/21 13:05 Blood Blood Culture - Pending Laboratory Tests Range/Units 01/06/21 01/06/21 01/06/21 13:05 13:05 13:05 WBC (4.4-10.8) 10^3/uL 10.18 RBC (4.36-5.78) 10^6/uL 4.58 Hgb (13.5-17.5) g/dL 13.9 Hct (40.0-50.0) % 41.3 MCV (80-95) fL 90.2 MCH (27.0-33.0) pg 30.3 MCHC (32.0-36.0) % 33.7 RDW (11.8-14.1) % 13.2 Plt Count (130-400) 10^3/uL 252 MPV (8.0-11.0) fL 10.0 Immature Gran % 0.5 Neutrophils % 86.3 Lymphocytes % 9.0 Monocytes % 4.1 Eosinophils % 0.0 Basophils % 0.1 Nucleated RBC % % 0 Absolute Neutrophils (1.2-6.7) 10^3/uL 8.78 H Absolute Lymphocytes (1.2-3.4) 10^3/uL 0.92 L Absolute Monocytes (0.1-0.8) 10^3/uL 0.42 Absolute Eosinophils (0.0-0.7) 10^3/uL 0.00 Absolute Basophils (0.0-0.2) 10^3/uL 0.01 ESR (0-20) mm/hr PT (9.3-11.0) sec 10.3 INR (0.9-1.1) 1.0 APTT (21.0-27.5) sec 30.7 H D-Dimer (<500) ng/mlFEU 1638 H VBG Lactate (0.6-1.4) mmol/L Sodium (136-145) mmol/L 138 Potassium (3.5-5.1) mmol/L 4.0 Chloride (98-107) mmol/L 102 Carbon Dioxide (21.0-32.0) mmol/L 25.8 Anion Gap (3-11) mmol/L 10.2 BUN (7-18) mg/dL 30 H Creatinine (0.70-1.30) mg/dL 1.1 Estimated GFR/1.73 m2 (mL/min/1.73m2) >= 60.00 Glucose (74-106) mg/dL 106 Calcium (8.5-10.1) mg/dL 8.9 Magnesium (1.8-2.4) mg/dL Ferritin (26-388) ng/mL 1374 H Total Bilirubin (0.2-1.0) mg/dL 0.5 AST (15-37) U/L 55 H ALT (16-63) U/L 47 Alkaline Phosphatase (46-116) U/L 36 L Lactate Dehydrogenase (85-227) U/L 368 H Troponin I (<0.06) ng/mL C-Reactive Protein (0.0-0.3) mg/dL 9.20 H NT-Pro-B Natriuret Pep (<300) pg/mL 1288 H Total Protein (6.4-8.2) g/dL 7.4 Albumin (3.4-5.0) g/dL 3.4 Procalcitonin ng/mL COVID-19 Source SARS-CoV-2 (PCR) (Negative) Range/Units 01/06/21 01/06/21 01/06/21 13:05 13:05 13:05 WBC (4.4-10.8) 10^3/uL RBC (4.36-5.78) 10^6/uL Hgb (13.5-17.5) g/dL Hct (40.0-50.0) % MCV (80-95) fL MCH (27.0-33.0) pg MCHC (32.0-36.0) % RDW (11.8-14.1) % Plt Count (130-400) 10^3/uL MPV (8.0-11.0) fL Immature Gran % Neutrophils % Lymphocytes % Monocytes % Eosinophils % Basophils % Nucleated RBC % % Absolute Neutrophils (1.2-6.7) 10^3/uL Absolute Lymphocytes (1.2-3.4) 10^3/uL Absolute Monocytes (0.1-0.8) 10^3/uL Absolute Eosinophils (0.0-0.7) 10^3/uL Absolute Basophils (0.0-0.2) 10^3/uL ESR (0-20) mm/hr 22 H PT (9.3-11.0) sec INR (0.9-1.1) APTT (21.0-27.5) sec D-Dimer (<500) ng/mlFEU VBG Lactate (0.6-1.4) mmol/L 2.8 H* Sodium (136-145) mmol/L Potassium (3.5-5.1) mmol/L Chloride (98-107) mmol/L Carbon Dioxide (21.0-32.0) mmol/L Anion Gap (3-11) mmol/L BUN (7-18) mg/dL Creatinine (0.70-1.30) mg/dL Estimated GFR/1.73 m2 (mL/min/1.73m2) Glucose (74-106) mg/dL Calcium (8.5-10.1) mg/dL Magnesium (1.8-2.4) mg/dL 2.4 Ferritin (26-388) ng/mL Total Bilirubin (0.2-1.0) mg/dL AST (15-37) U/L ALT (16-63) U/L Alkaline Phosphatase (46-116) U/L Lactate Dehydrogenase (85-227) U/L Troponin I (<0.06) ng/mL < 0.05 C-Reactive Protein (0.0-0.3) mg/dL NT-Pro-B Natriuret Pep (<300) pg/mL Total Protein (6.4-8.2) g/dL Albumin (3.4-5.0) g/dL Procalcitonin ng/mL 0.1 COVID-19 Source SARS-CoV-2 (PCR) (Negative) Range/Units 01/06/21 13:30 WBC (4.4-10.8) 10^3/uL RBC (4.36-5.78) 10^6/uL Hgb (13.5-17.5) g/dL Hct (40.0-50.0) % MCV (80-95) fL MCH (27.0-33.0) pg MCHC (32.0-36.0) % RDW (11.8-14.1) % Plt Count (130-400) 10^3/uL MPV (8.0-11.0) fL Immature Gran % Neutrophils % Lymphocytes % Monocytes % Eosinophils % Basophils % Nucleated RBC % % Absolute Neutrophils (1.2-6.7) 10^3/uL Absolute Lymphocytes (1.2-3.4) 10^3/uL Absolute Monocytes (0.1-0.8) 10^3/uL Absolute Eosinophils (0.0-0.7) 10^3/uL Absolute Basophils (0.0-0.2) 10^3/uL ESR (0-20) mm/hr PT (9.3-11.0) sec INR (0.9-1.1) APTT (21.0-27.5) sec D-Dimer (<500) ng/mlFEU VBG Lactate (0.6-1.4) mmol/L Sodium (136-145) mmol/L Potassium (3.5-5.1) mmol/L Chloride (98-107) mmol/L Carbon Dioxide (21.0-32.0) mmol/L Anion Gap (3-11) mmol/L BUN (7-18) mg/dL Creatinine (0.70-1.30) mg/dL Estimated GFR/1.73 m2 (mL/min/1.73m2) Glucose (74-106) mg/dL Calcium (8.5-10.1) mg/dL Magnesium (1.8-2.4) mg/dL Ferritin (26-388) ng/mL Total Bilirubin (0.2-1.0) mg/dL AST (15-37) U/L ALT (16-63) U/L Alkaline Phosphatase (46-116) U/L Lactate Dehydrogenase (85-227) U/L Troponin I (<0.06) ng/mL C-Reactive Protein (0.0-0.3) mg/dL NT-Pro-B Natriuret Pep (<300) pg/mL Total Protein (6.4-8.2) g/dL Albumin (3.4-5.0) g/dL Procalcitonin ng/mL COVID-19 Source Nasal/Nares SARS-CoV-2 (PCR) (Negative) POSITIVE A* ECG Data Attestation: I personally reviewed and interpreted this ECG (s) as follows: Interpretation: Please see official report by Dr. Valerio, atrial fibrillation, ventricular rate of 137, no STEMI HPI General Mode of arrival: ambulatory . Date/Time Provider Initiated Documentation: 01/06/21 12:45 . Limitations to Documentation: no limitations . Information obtained by: patient . HPI Narrative: This is a 65-year-old gentleman, past medical history of hypertension, bladder CA, COPD, former smoker, presenting to the ER reporting he was exposed to Covid before and he has had 10-day history of intermittent subjective fevers, dry cough, shortness of breath, decreased p.o. intake, general fatigue and feels as though his symptoms are getting progressively worse. He is not vaccinated for Covid. He was tested for Covid 2 days ago but these results are not back, contacted his primary care today and instructed to come to the ER. He denies any headache, neck pain, chest pain, abdominal pain, vomiting, pain or swelling in his legs. He does admit to feeling like his heart has been fast over the past day or so as well as diarrhea. Has not taken any medications for his symptoms Related Data Home Medications Medication Instructions Recorded Confirmed ibuprofen 4 tab PO PRN 06/12/12 01/06/21 nicotine (polacrilex) [Nicorette] 1 piece of gum PO Q2H PRN piece 06/12/12 01/06/21 of gum acetaminophen [Tylenol] 650 mg PO Q6H PRN PRN #30 tab 08/09/17 01/06/21 umeclidinium 62.5 mcg-vilanterol 1 inh IH Q24H #60 each 02/09/20 01/06/21 25 mcg/actuation powdr for inhalation fluticasone propionate 110 2 puff IH BID #12 gm 03/26/20 01/06/21 mcg/actuation HFA aerosol inhaler albuterol sulfate 90 mcg/actuation 2 puff IH Q6H PRN #8.5 gm 09/02/20 01/06/21 aerosol inhaler amlodipine 10 mg tablet 10 mg PO DAILY #90 tab 09/02/20 01/06/21 Previous Rx's Medication Instructions Recorded acetaminophen [Tylenol] 650 mg PO Q6H PRN PRN #30 tab 08/09/17 umeclidinium 62.5 mcg-vilanterol 1 inh IH Q24H #60 each 02/09/20 25 mcg/actuation powdr for inhalation fluticasone propionate 110 2 puff IH BID #12 gm 03/26/20 mcg/actuation HFA aerosol inhaler albuterol sulfate 90 mcg/actuation 2 puff IH Q6H PRN #8.5 gm 09/02/20 aerosol inhaler amlodipine 10 mg tablet 10 mg PO DAILY #90 tab 09/02/20 Allergies Allergy/AdvReac Type Severity Reaction Status Date / Time lisinopril AdvReac Severe Hyperkalemi Verified 01/06/21 13:10 a General BARBARA: 2 Review of Systems Constitutional Constitutional: Reports fatigue, Reports fever(s) and Denies headache(s) ENT Ears, Nose, Mouth, and Throat: Denies headache(s), Denies neck pain and Denies sore throat Cardiovascular Cardiovascular: Denies chest pain and Reports dyspnea Respiratory Respiratory: Reports cough and Reports dyspnea Gastrointestinal Gastrointestinal: Denies abdominal pain, Reports diarrhea, Reports nausea and Denies vomiting Genitourinary Genitourinary: Denies dysuria Musculoskeletal Musculoskeletal: Denies neck pain Integumentary/Breasts Skin/Breast: Denies rash Neurologic Neurologic: Denies headache(s) Endocrine Endocrine: Reports fatigue Hematologic/Lymphatic Hematologic/Lymphatic: Denies easy bleeding and Denies easy bruising [facility] Active Problem List Essential hypertension (Acute) History of bladder cancer (Acute 01/07/16) Nicotine dependence (Acute) Tubular adenoma (Acute ~11/2019) COPD (chronic obstructive pulmonary disease) (Chronic) Medical History Hypertension Inguinal hernia without obstruction or gangrene (07/04/17) Left nasal polyps (03/17/16) Surgical History Bilateral Inguinal Hernia Repair Colonoscopy - IV Sedation 2015-hyperplastic polyp Family History Father , age 89 Essential hypertension Daughter Depression Social History Smoking/Tobacco Use Status: Former Tobacco Use Quit Date: 02/05/17 Tobacco: How many years used: 20 Quit status: has quit before (2018) Smoking risk assessment performed?: Yes Alcohol Intake: current Drug use: Never Substance use type: does not use Adopted: No Foster care: No Household members: spouse Housing: house Communication Needs: None Do you need help understanding health information?: Rarely current occupation: [employer] Pets and animals: Yes Pets and animals: cat(s) and dog(s) Sexually active: No Do you think of yourself as: straight/heterosexual Current gender identity: male What is your relationship status?: How often do you talk on the phone with friends or family?: three or more times per week How often do you get together with friends or relatives?: once per week How often do you attend muslim or confucianist services?: decline to answer Do you belong to any clubs or organized social groups?: no Panel score (0-1 are the most socially isolated patients): 2 What type of physical activity do you participate in: none Isabel/Caodaism: Anglican Special isabel needs: No Seatbelt use: never Helmet use: No Drive intox or ride w/intox tanker driver: No Working smoke detector in home: No Fire extinguisher in home: Yes Do you feel safe at home: Yes Do you feel safe in your relationship?: Yes Exam Const General: cooperative and no acute distress Orientation: alert, awake and oriented x3 [facility] Head: normal to inspection, normocephalic and atraumatic Face and sinus: normal facial exam Mouth: moist mucous membranes abnormal (very dry) Throat: posterior oropharynx normal Eyes General: appearance normal, both eyes and all related structures Conjunctivae: conjunctivae normal Neck Neck: normal visual inspection, full ROM, no meningeal signs, trachea midline, supple and nontender Resp Effort & Inspection: normal respiratory effort and able to speak in complete sentences Auscultation: diminished lung sounds bilaterally in the lower lung blake and rhonchi (Scattered throughout, mostly clear with cough) Cardio Rate: tachycardic (140s) Rhythm: abnormal rhythm irregularly irregular GI Inspection: normal to inspection Palpation: soft and nontender Back/Spine/Pelvis Back: No back tenderness Skin General skin exam: no rashes or lesions noted Neuro General: patient alert, patient awake, moves all extremities and no focal motor deficits Cognition: normal cognition Speech: speech normal Motor: muscle tone normal throughout Sensory Exam: no sensory deficits noted Extrem General: normal to inspection, full ROM, capillary refill normal, no pedal edema and no calf tenderness Psych Appearance: grossly normal Mental Status: mental status grossly normal Critical Care Time Critical Care Time Critical Care Time: Yes Total Critical Care Time: 35 Attestation: Upon my evaluation, this patient had a high probability of clinically significant, life-threatening deterioration due to their current medical conditions, which required my direct attention, intervention, and personal management. I have personally provided greater than 30 minutes of critical care time exclusive of the time spend on separately billable procedures. Time includes obtaining a history, examining the patient, pulse oximetry, review of laboratory data, radiology results, discussion with consultants, arranging urgent treatment with development of a management plan, evaluation of patient's response to treatment, and monitoring for potential decompensation. Interventions were performed as documented above.
--- NOTE | 2021-01-06 13:00 | DI.CT_ITS ---
Exam(s) CT CHEST PE CTA EXAM: CT CHEST PE CTA CLINICAL HISTORY: sob/tachy 140. TECHNIQUE: Imaging Protocol: CT angiography of the chest was performed using pulmonary embolus siva col. Multi planar reconstructions were performed. CONTRAST MATERIAL: Intravenous: Omnipaque 350 Contrast volume: 100 cc CR XR CHEST 2V PA LATERAL from 02/28/2018 FINDINGS: CHEST: PULMONARY ARTERIES: There are no intraluminal filling defects to suggest acute pulmonary emboli. LUNGS: Compared to 2018 there has been significant deterioration in the lung blake. There is inters titial-type infiltrate in the posterior segment of the right upper lobe and extending down through th e superior segment of the right lower lobe down into the basal segments and also involving right midd le lobe. No pleural effusion. In the opposite-left lung there is similar but lesser amount of infil trate in the apical posterior segment of the left upper lobe and also in the lingular segment superio r aspect. Also ext similar infiltrate in the posterior and lateral basal segments of the left lower lobe. No pleural effusions on either side. No significant focal findings in the trachea and mainste m bronchi. MEDIASTINUM: There is no hilar nor mediastinal adenopathy. Visualized thyroid unremarkable. CARDIAC: Heart size is upper normal. There is no pericardial effusion.Caliber of the thoracic aorta is within normal limits. There is no significant shift of the interventricular septum. PARTIALLY VISUALIZED UPPERMOST ABDOMEN: No obvious findings OSSEOUS: No significant osseous lesions.. IMPRESSION: 1. No evidence of acute pulmonary emboli. No evidence of pulmonary infarction.No pleural effusions. 2. Extensive bilateral interstitial and partially confluent infiltrates as described above. No assoc iated pleural effusions nor intrathoracic adenopathy. Recommend Covid testing. 3. No significant osseous lesions RADIATION DOSE DELIVERED: 360.4mGy.cm Total DLP DATA REPOSITORY: All CT scans at this facility are submitted to the National Radiology Data Registry (NRDR) Dose Index Registry (DIR) with the [employer] ([employer]). RADIATION OPTIMIZATION: All CT scans at this facility use at least one of these dose optimization te chniques: automated exposure control; mA and/or kV adjustment per patient size (includes targeted exa ms where dose is matched to clinical indication); or iterative reconstruction.
[2021-01-06] MEDS: Normal Saline 1,000 ML 1000 ML IV (13:10)
[2021-01-06 13:31] LABS: Lactate 2.8 mmol/L (0.6-1.4)
[2021-01-06 13:34] LABS: Abs Immature Grans 0.05 10^3/uL (0.0-0.06); Absolute Basophil Count 0.01 10^3/uL (0.0-0.2); Absolute Lymphocyte Count 0.92 10^3/uL (1.2-3.4); Absolute Monocyte Count 0.42 10^3/uL (0.1-0.8); Absolute Neutrophil Count 8.78 10^3/uL (1.2-6.7); Basophils % 0.1; HCT 41.3 % (40.0-50.0); HGB 13.9 g/dL (13.5-17.5); Immature Grans % 0.5; MCH 30.3 pg (27.0-33.0); MCHC 33.7 % (32.0-36.0); MCV 90.2 fL (80-95); Monocytes % 4.1; Neutrophils % 86.3; Nucleated RBC 0 %; Platelet Count 252 10^3/uL (130-400); RBC 4.58 10^6/uL (4.36-5.78); RDW 13.2 % (11.8-14.1); WBC 10.18 10^3/uL (4.4-10.8)
[2021-01-06] MEDS: Metoprolol 5 MG/5 ML VIAL IVP ×4 (13:41→22:29)
[2021-01-06 13:43] LABS: PTT Activated 30.7 sec (21.0-27.5); Prothrombin Time 10.3 sec (9.3-11.0)
[2021-01-06 13:45] LABS: Source Nasal/Nares
[2021-01-06 13:46] LABS: ESR 22 mm/hr (0-20)
[2021-01-06 13:52] LABS: ALT 47 U/L (16-63); AST 55 U/L (15-37); Albumin 3.4 g/dL (3.4-5.0); Alkaline Phosphatase 36 U/L (46-116); Anion Gap 10.2 mmol/L (3-11); BUN 30 mg/dL (7-18); Bilirubin, Total 0.5 mg/dL (0.2-1.0); CO2 25.8 mmol/L (21.0-32.0); CREATININE 1.1 mg/dL (0.70-1.30); Calcium 8.9 mg/dL (8.5-10.1); Chloride 102 mmol/L (98-107); Glucose 106 mg/dL (74-106); LDH 368 U/L (85-227); Magnesium 2.4 mg/dL (1.8-2.4); Sodium 138 mmol/L (136-145); Total Protein 7.4 g/dL (6.4-8.2)
[2021-01-06 13:53] LABS: Troponin I < 0.05 ng/mL (<0.06)
[2021-01-06] MEDS: Lactated Ringers 1,000 ML 1000 ML IV (13:55)
[2021-01-06 14:03] LABS: D-Dimer 1638 ng/mlFEU (<500)
[2021-01-06 14:08] LABS: Procalcitonin 0.1 ng/mL
[2021-01-06] MEDS: Omnipaque 350 MG/ML 100 ML BTL IJ (14:28)
[2021-01-06 14:33] LABS: NT-proBNP 1288 pg/mL (<300)
[2021-01-06] MEDS: Acetaminophen 500 MG TAB (15:05)
[2021-01-06 15:08] LABS: COVID-19 PCR POSITIVE (Negative)
[2021-01-06 15:14] LABS: Ferritin 1374 ng/mL (26-388)
[2021-01-06] MEDS: Dexamethasone 10 MG/ML VIAL IVP (15:20)
[2021-01-06] MEDS: Metoprolol 12.5 MG TAB PO ×2 (15:47→21:06)
[2021-01-06] MEDS: REMDESIVIR 200 MG in Normal Saline 250 ML 250 MG IVPB (15:47)
[2021-01-06 16:27] LABS: Bilirubin Negative (Negative); Blood Trace-intact (Negative); Clarity Clear (Clear); Glucose Negative (Negative); Ketones 15 mg/dL (Negative); Leukocyte Esterase Negative (Negative); Nitrite Negative (Negative); Specific Gravity 1.015 (1.005-1.025); Urobilinogen 0.2 EU/dL (Up TO 0.2)
[2021-01-06 16:37] LABS: Bacteria Negative HPF (Negative); C & S Indicated? No; Casts 0-2 Hyaline LPF (Negative); Crystals Negative HPF (Negative); Epithelial Cells Negative HPF (Negative); Mucus Trace (Negative); RBC 0-2 HPF (0-2); WBC Negative HPF (0-5)
[2021-01-06 16:52] LABS: Troponin I < 0.05 ng/mL (<0.06)
[2021-01-06 17:21] LABS: TSH (W/Ref FT4) 1.51 uIU/mL (0.36-3.74)
[2021-01-06 17:27] LABS: Creatine Kinase 185 U/L (39-308)
[2021-01-06] MEDS: Enoxaparin 80 MG/0.8 ML SYR 75 MG SC (17:45)
[2021-01-06] MEDS: Normal Saline Flush 10 ML SYR ×2 (17:46→22:28)
[2021-01-06] MEDS: Furosemide 20 MG/2 ML VIAL IVP (17:46)
--- NOTE | 2021-01-06 18:45 | HPE_ITS ---
Date of service: 01/06/21 Time of Service: 18:45 Assessment and Plan Assessment and plan (1) COVID: Status: Acute Assessment and plan: Patient is a late presentation of COVID-19 pneumonia. Symptoms started about 10 days ago when he traveled to [facility] for football game. He returned from [place] the day after Thanksgiving. He has been ill with cough, malaise, generalized weakness along with decreased appetite and shortness of breath. Today he felt very fatigued [facility]. He was found to be in acute atrial fibrillation with a rapid rate and found to be hypoxemic. Because of the patient's high inflammatory markers as well as his underlying moderate COPD as well as his underlying bladder cancer he is at high risk for deterioration therefore have chosen to put him on Actemra. He will receive Actemra 9 mg/kg tonight. He already received Decadron 10 mg IV push along with Remdesivir 200 mg IV. I will put him on Pepcid, atorvastatin, vitamin C, vitamin D, zinc and will continue him on Decadron 6 mg orally daily along with Remdesivir 100 mg IV daily. I instructed the patient about proning and the importance of incentive spirometry and acapella to prevent atelectasis. I advised him against lying supine on his back and if he cannot tolerate proning that he should lay on his side and alternate which side he is lying on. I will put him on Rocephin and doxycycline pending repeat procalcitonin level. Because of his atrial fibrillation I have put him on full anticoagulation of Lovenox 1 mg/kg every 12 hours. (2) Atrial fibrillation with RVR: Status: Acute Assessment and plan: Rate control with IV and p.o. Lopressor along with anticoagulation with Lovenox 1 mg/kg subcutaneously every 12 hours. Check serial troponin levels. Check echocardiogram in the morning. (3) Essential hypertension: Status: Acute Assessment and plan: Patient is currently on amlodipine 10 mg daily. We will hold this for now as we are treating him with Lopressor. If his blood pressure is inadequately controlled with Lopressor we will resume his amlodipine. (4) COPD (chronic obstructive pulmonary disease): Status: Chronic Assessment and plan: Continue scheduled DuoNeb treatments along with as needed albuterol we will put him on Symbicort was hospitalized. Encourage cough and deep breathing and use of incentive spirometry as well as Acapella device. Supplemental oxygen as needed and titrated to keep his SPO2 greater than 90% Qualifiers: COPD type: chronic bronchitis Chronic bronchitis type: unspecified Qualified Code(s): J42 - Unspecified chronic bronchitis (5) History of bladder cancer: Status: Acute Assessment and plan: Cause of his underlying bladder cancer is high risk for deterioration from his COVID-19 pneumonia. He is not currently receiving chemotherapy therefore he is an acceptable candidate for Actemra. History of Present Illness Narrative: 65-year-old gentleman who is not vaccinated for Covid, past medical history of COPD, hypertension, former smoker, known Covid exposure a couple of weeks ago presenting for Covid-like symptoms over the past 10 days. He presents in A. fib, heart rate in the 160s. Evaluation included positive SARS-COV2 nasal swab and CTA of chest that demonstrated: IMPRESSION: 1. No evidence of acute pulmonary emboli. No evidence of pulmonary infarction.No pleural effusions. 2. Extensive bilateral interstitial and partially confluent infiltrates as described above. No associated pleural effusions nor intrathoracic adenopathy. Recommend Covid testing. 3. No significant osseous lesions EKG demonstrated afib w/ ventricular rate 137 bpm w/ no acute ischemic or injury pattern. Labs were remarkable for the following: CBC with an absolute lymphocytopenia of 920, no anemia, D-dimer 1638, blood lactate 2.8, BUN 38, creatinine 1.1, no electrolyte abnormalities. Ferritin 1374, LDH 368, C-reactive protein 9.2, proBNP 1288, TSH 1.5, procalcitonin 0.1, CK 185, AST 55. Initially the patient's pulse oximetry was 92% on room air but then deteriorated and required 2 L/min nasal cannula to maintain a saturation of 95%. Since that time the patient is now required 4 L/min and oxygen saturations only 90%. Patient was started on Decadron 10 mg IV push and given Remdesivir 200 mg IV. I have spoken with the pharmacist and the patient will be given a dose of Actemra tonight. He will also be covered with Rocephin and doxycycline until we are sure that there is no concomitant bacterial infection. Review of Systems All systems reviewed & are unremarkable except as noted in HPI and below [facility] Active Problem List Essential hypertension (Acute) History of bladder cancer (Acute 01/07/16) Nicotine dependence (Acute) Tubular adenoma (Acute ~11/2019) COPD (chronic obstructive pulmonary disease) (Chronic) Medical History Hypertension Inguinal hernia without obstruction or gangrene (07/04/17) Left nasal polyps (03/17/16) Surgical History Bilateral Inguinal Hernia Repair Colonoscopy - IV Sedation 2015-hyperplastic polyp Family History Father , age 89 Essential hypertension Daughter Depression Social History Smoking/Tobacco Use Status: Former Tobacco Use Quit Date: 02/05/17 Tobacco: How many years used: 20 Quit status: has quit before (2018) Smoking risk assessment performed?: Yes Alcohol Intake: current Drug use: Never Substance use type: does not use Adopted: No Foster care: No Household members: spouse Housing: house Communication Needs: None Do you need help understanding health information?: Rarely current occupation: [employer] Pets and animals: Yes Pets and animals: cat(s) and dog(s) Sexually active: No Do you think of yourself as: straight/heterosexual Current gender identity: male What is your relationship status?: How often do you talk on the phone with friends or family?: three or more times per week How often do you get together with friends or relatives?: once per week How often do you attend latter day or mandaeism services?: decline to answer Do you belong to any clubs or organized social groups?: no Panel score (0-1 are the most socially isolated patients): 2 What type of physical activity do you participate in: none Isabel/Orthodoxy: Uatsdin Special isabel needs: No Seatbelt use: never Helmet use: No Drive intox or ride w/intox 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: No Working smoke detector in home: No Fire extinguisher in home: Yes Do you feel safe at home: Yes Do you feel safe in your relationship?: Yes Meds Allergies and Home Medications Allergies Allergy/AdvReac Type Severity Reaction Status Date / Time lisinopril AdvReac Severe Hyperkalemi Verified 01/06/21 13:10 a Home Medications Medication Instructions Recorded Confirmed Type ibuprofen 4 tab PO PRN 06/12/12 01/06/21 History nicotine (polacrilex) [Nicorette] 1 piece of gum PO Q2H PRN piece 06/12/12 01/06/21 History of gum acetaminophen [Tylenol] 650 mg PO Q6H PRN PRN #30 tab 08/09/17 01/06/21 Rx umeclidinium 62.5 mcg-vilanterol 1 inh IH Q24H #60 each 02/09/20 01/06/21 Rx 25 mcg/actuation powdr for inhalation fluticasone propionate 110 2 puff IH BID #12 gm 03/26/20 01/06/21 Rx mcg/actuation HFA aerosol inhaler albuterol sulfate 90 mcg/actuation 2 puff IH Q6H PRN #8.5 gm 09/02/20 01/06/21 Rx aerosol inhaler amlodipine 10 mg tablet 10 mg PO DAILY #90 tab 09/02/20 01/06/[address] scan - chest: report reviewed and image reviewed EKG: image reviewed Labs Result diagrams: 01/06/21 13:05 01/06/21 13:05 Labs: Laboratory Results - last 24 hr 01/06/21 01/06/21 01/06/21 13:05 13:05 13:05 WBC 10.18 RBC 4.58 Hgb 13.9 Hct 41.3 MCV 90.2 MCH 30.3 MCHC 33.7 RDW 13.2 Plt Count 252 MPV 10.0 Immature Gran % 0.5 Neutrophils % 86.3 Lymphocytes % 9.0 Monocytes % 4.1 Eosinophils % 0.0 Basophils % 0.1 Nucleated RBC % 0 Absolute Neutrophils 8.78 H Absolute Lymphocytes 0.92 L Absolute Monocytes 0.42 Absolute Eosinophils 0.00 Absolute Basophils 0.01 ESR PT 10.3 INR 1.0 APTT 30.7 H D-Dimer 1638 H VBG Lactate Sodium 138 Potassium 4.0 Chloride 102 Carbon Dioxide 25.8 Anion Gap 10.2 BUN 30 H Creatinine 1.1 Estimated GFR/1.73 m2 >= 60.00 Glucose 106 Calcium 8.9 Magnesium Ferritin 1374 H Total Bilirubin 0.5 AST 55 H ALT 47 Alkaline Phosphatase 36 L Lactate Dehydrogenase 368 H Creatine Kinase Troponin I C-Reactive Protein 9.20 H NT-Pro-B Natriuret Pep 1288 H Total Protein 7.4 Albumin 3.4 Procalcitonin TSH Urine Color Urine Clarity Urine pH Ur Specific [place] Urine Protein Urine Ketones Urine Blood Urine Nitrite Urine Bilirubin Urine Urobilinogen Ur Leukocyte Esterase Urine RBC Urine WBC Ur Epithelial Cells Urine Crystals Urine Bacteria Urine Casts Urine Mucus Ur Culture Indicated? Urine Glucose COVID-19 Source SARS-CoV-2 (PCR) Patient ABO/Rh Antibody Screen 01/06/21 01/06/21 01/06/21 13:05 13:05 13:05 WBC RBC Hgb Hct MCV MCH MCHC RDW Plt Count MPV Immature Gran % Neutrophils % Lymphocytes % Monocytes % Eosinophils % Basophils % Nucleated RBC % Absolute Neutrophils Absolute Lymphocytes Absolute Monocytes Absolute Eosinophils Absolute Basophils ESR 22 H PT INR APTT D-Dimer VBG Lactate 2.8 H* Sodium Potassium Chloride Carbon Dioxide Anion Gap BUN Creatinine Estimated GFR/1.73 m2 Glucose Calcium Magnesium 2.4 Ferritin Total Bilirubin AST ALT Alkaline Phosphatase Lactate Dehydrogenase Creatine Kinase Troponin I < 0.05 C-Reactive Protein NT-Pro-B Natriuret Pep Total Protein Albumin Procalcitonin 0.1 TSH Urine Color Urine Clarity Urine pH Ur Specific [place] Urine Protein Urine Ketones Urine Blood Urine Nitrite Urine Bilirubin Urine Urobilinogen Ur Leukocyte Esterase Urine RBC Urine WBC Ur Epithelial Cells Urine Crystals Urine Bacteria Urine Casts Urine Mucus Ur Culture Indicated? Urine Glucose COVID-19 Source SARS-CoV-2 (PCR) Patient ABO/Rh Antibody Screen 01/06/21 01/06/21 01/06/21 13:05 13:30 16:00 WBC RBC Hgb Hct MCV MCH MCHC RDW Plt Count MPV Immature Gran % Neutrophils % Lymphocytes % Monocytes % Eosinophils % Basophils % Nucleated RBC % Absolute Neutrophils Absolute Lymphocytes Absolute Monocytes Absolute Eosinophils Absolute Basophils ESR PT INR APTT D-Dimer VBG Lactate Sodium Potassium Chloride Carbon Dioxide Anion Gap BUN Creatinine Estimated GFR/1.73 m2 Glucose Calcium Magnesium Ferritin Total Bilirubin AST ALT Alkaline Phosphatase Lactate Dehydrogenase Creatine Kinase Troponin I < 0.05 C-Reactive Protein NT-Pro-B Natriuret Pep Total Protein Albumin Procalcitonin TSH 1.51 Urine Color Urine Clarity Urine pH Ur Specific [place] Urine Protein Urine Ketones Urine Blood Urine Nitrite Urine Bilirubin Urine Urobilinogen Ur Leukocyte Esterase Urine RBC Urine WBC Ur Epithelial Cells Urine Crystals Urine Bacteria Urine Casts Urine Mucus Ur Culture Indicated? Urine Glucose COVID-19 Source Nasal/Nares SARS-CoV-2 (PCR) POSITIVE A* Patient ABO/Rh Antibody Screen 01/06/21 01/06/21 01/06/21 16:00 16:55 16:55 WBC RBC Hgb Hct MCV MCH MCHC RDW Plt Count MPV Immature Gran % Neutrophils % Lymphocytes % Monocytes % Eosinophils % Basophils % Nucleated RBC % Absolute Neutrophils Absolute Lymphocytes Absolute Monocytes Absolute Eosinophils Absolute Basophils ESR PT INR APTT D-Dimer VBG Lactate Sodium Potassium Chloride Carbon Dioxide Anion Gap BUN Creatinine Estimated GFR/1.73 m2 Glucose Calcium Magnesium Ferritin Total Bilirubin AST ALT Alkaline Phosphatase Lactate Dehydrogenase Creatine Kinase 185 Troponin I C-Reactive Protein NT-Pro-B Natriuret Pep Total Protein Albumin Procalcitonin TSH Urine Color Yellow Urine Clarity Clear Urine pH 6.0 Ur Specific [place] 1.015 Urine Protein 100 H Urine Ketones 15 H Urine Blood Trace-intact H Urine Nitrite Negative Urine Bilirubin Negative Urine Urobilinogen 0.2 Ur Leukocyte Esterase Negative Urine RBC 0-2 Urine WBC Negative Ur Epithelial Cells Negative Urine Crystals Negative Urine Bacteria Negative Urine Casts 0-2 Hyaline Urine Mucus Trace Ur Culture Indicated? No Urine Glucose Negative COVID-19 Source SARS-CoV-2 (PCR) Patient ABO/Rh B Negative Antibody Screen NEGATIVE Last Vital Signs Temp 36.4 C L 01/06/21 18:09 Pulse 97 H 01/06/21 18:09 Resp 18 01/06/21 18:09 BP 125/76 01/06/21 18:09 Pulse Ox 90 L 01/06/21 18:09 PAWSS Have you Been Recently Intoxicated or Drunk Within the Last 30 days?: No Have you Ever Experienced Previous Episodes of Alcohol Withdrawal?: No Have you ever Experienced Withdrawal Seizures?: No Have you ever Experienced Delirium Tremens(DT)s?: No Have you ever undergone Alcohol Rehabilitation Treatment (i.e, inpt ot o utpatient treatment programs)?: No Have you ever Experienced Blackouts?: No Have you ever Combined Alcohol with any other Substance of Abuse during the last 90 days?: No Positive Blood Alcohol level on Presentation? [PCS.BAL]: No Evidence of Increased Autonomic Activity (i.e. HR>120, tremor, sweating, a gitation, nausea)?: No Result: 0
[2021-01-06] MEDS: Potassium Chloride 20 MEQ TABCR PO (21:03)
[2021-01-06] MEDS: Famotidine 20 MG TAB PO (21:03)
[2021-01-06] MEDS: Ascorbic Acid 500 MG TAB 1000 MG PO (21:04)
[2021-01-06] MEDS: Atorvastatin 40 MG TAB PO (21:04)
[2021-01-06] MEDS: Nicotine 21 MG/24 HR PATCH TD (21:05)
[2021-01-06] MEDS: Psyllium PKT 1 EACH PO (21:05)
[2021-01-06] MEDS: Docusate Sodium 100 MG CAP PO (21:05)
[2021-01-06] MEDS: Senna TAB 1 TAB PO (21:06)
[2021-01-06] MEDS: cefTRIAXone 1,000 MG in Normal Saline 50 ML 100 MG IVPB (21:08)
[2021-01-06] MEDS: DOXYCYCLINE 100 MG in Normal Saline 100 ML IVPB (21:09)
[2021-01-06] MEDS: Mometasone 220 MCG 14 DOSE INHALER 2 PUFF IH (21:13)
[2021-01-07] VITALS (14 sets, daily range): BP systolic 102–125; BP diastolic 61–81; PULSE 88–172; RESP 14–19; TEMP 36.3–36.6; O2SAT 88–96
[2021-01-07] MEDS: Metoprolol 12.5 MG TAB PO ×2 (04:42→09:27)
[2021-01-07] MEDS: Enoxaparin 80 MG/0.8 ML SYR 75 MG SC ×2 (05:01→17:36)
--- NOTE | 2021-01-07 07:00 | DI.US_ITS ---
APPROVED REPORT EXAM: Comprehensive 2D, Doppler, and color-flow Echocardiogram Patient Location: In-Patient Room/Bed: 216 Mmi Teacher: Laury Leija RDCS (AE) Indications: COVID, A Fib, HTN, COPD, Evaluate LV, High BNP Other Information Study Quality: Fair. Technically limited study due to body habitus, inability to position patient. Conclusion Technically difficult study. The patient was in atrial fibrillation at an uncontrolled rate througho ut Normal left ventricular wall thickness and chamber size. Estimated ejection fraction is 55 to 60%. Wall motion appeared normal The right ventricle appears mildly dilated with preserved systolic function Both atria are normal in size There is no structural or hemodynamically significant valvular disease Right ventricular systolic pressure could not be estimated Wall motion Left Ventricle The left ventricle is normal size. The left ventricular systolic function is normal. The left ventric ular ejection fraction is within the normal range. There is normal left ventricular wall thickness. T here is normal LV segmental wall motion. There is no ventricular septal defect visualized. LVEF is 55 -60%. Right Ventricle Right ventricle is mildly dilated. The right ventricular systolic function is normal. Atria The left atrium size is normal. The right atrium size is normal. The interatrial septum is intact wit h no evidence for an atrial septal defect. Aortic Valve The aortic valve is normal in structure. There is no aortic valvular stenosis. No aortic regurgitatio n is present. Mitral Valve The mitral valve is normal in structure. No evidence of mitral valve stenosis. Trace mitral regurgita tion. Tricuspid Valve The tricuspid valve is normal in structure. There is no tricuspid valve stenosis. Trace tricuspid reg urgitation. Unable to assess PA pressure. Pulmonic Valve The pulmonary valve is normal in structure. There is no pulmonic valvular stenosis. There is no pulmo abi valvular regurgitation. Great Vessels The aortic root is normal in size. Ascending aorta is not well visualized. Aortic arch is not well vi sualized. IVC is normal in size and collapses >50% with inspiration. Pericardium There is no pericardial effusion. 2D Dimensions IVSD d PLAX 0.93 cm M: 0.6-1.2 LV Vol A2C d MOD 84.6 mL LVPW d PLAX 0.94 cm M: 0.6 - 1.2 LV Vol A4C d MOD 108.4 mL LVID d PLAX 4.66 cm M: 4.2 - 5.8 LA vol/ BSA A4C s A-L 12.4 mL/m2 LVDs 3.30 cm M: 2.5 - 4.0 LA Area A4C s MOD 11.21 cm2 Ao Root d 3.33 cm M: 3.1 - 3.7 LV EF A4C MOD 55.7 % LV EF Teichholz 55.8 % LV EF A2C MOD 55.1 % LVEF (Quinn's) 54.82 % M: 52 - 72 LV EF Biplane MOD 54.8 % LV Volume 73.46 mL M: 62 - 150 SV 52.65 mL LV Volume Index 39.07 mL/m2 M: 34 - 74 SV Index 27.88 mL/m2 LV Vol Biplane MOD 96.1 mL FS 29.00 % M-Mode TAPSE 2.91 cm (M/F) >1.7 LV Diastology MV E Vmax 0.68 (0.4-1.3 m/s) Aortic Valve LVOT Area 2.99 cm2 AoV Area Vmax 3.03 cm2 LVOT Vmax 0.85 m/s AoV Area/ BSA (Vmax) 1.60 cm2/m2 LVOT Mean Alan. 0.52 m/s NICO Mean Alan. 2.65 cm2 LVOT Peak Grad 2.9 mmHg NICO Mean Alan. Index 1.40 cm2/m2 LVOT Mean Grad 1.3 mmHg LVOT VTI 0.137 m LVOT Diam s 1.95 cm AoV Vmax 0.84 m/s Velocity Ratio 1.01 AoV Mean Alan. 0.59 m/s AoV Peak Grad 2.8 mmHg LVOT SV 41.05 mL AoV Mean Grad 1.6 mmHg AoV VTI 0.139 m AoV Area VTI 2.95 cm2 AoV Area/ BSA (VTI) 1.56 cm/m2 Mitral Valve MV DT 303 (160-240 msec) MV PHT 88 msec MV Area PHT 2.50 cm2 MV VTI 0.135 m MV Area VTI 3.03 (4.0-6.0 cm2) Pulmonary Valve PV Vmax 0.79 (0.5-1.5 m/s) RVOT Peak Gr. 1.99 mmHg PV Peak Grad 2.5 mmHg RVOT Mean Gr. 1.10 mmHg PV Mean Grad 1.6 mmHg RVOT VTI 0.136 m PV VTI 0.144 m RVOT Vmax 0.71 m/s
[2021-01-07 07:42] LABS: Abs Immature Grans 0.03 10^3/uL (0.0-0.06); HCT 38.6 % (40.0-50.0); MCHC 33.7 % (32.0-36.0); MCV 89.1 fL (80-95); MPV 9.9 fL (8.0-11.0); Nucleated RBC 0 %; Platelet Count 230 10^3/uL (130-400); RBC 4.33 10^6/uL (4.36-5.78); RDW 13.4 % (11.8-14.1); RDW-SD 43.8 fL; WBC 4.62 10^3/uL (4.4-10.8)
[2021-01-07 08:02] LABS: ALT 36 U/L (16-63); AST 30 U/L (15-37); Albumin 2.4 g/dL (3.4-5.0); Alkaline Phosphatase 28 U/L (46-116); BUN 35 mg/dL (7-18); Bilirubin, Total 0.3 mg/dL (0.2-1.0); C-Reactive Protein 7.81 mg/dL (0.0-0.3); CREATININE 0.8 mg/dL (0.70-1.30); Calcium 8.2 mg/dL (8.5-10.1); Chloride 108 mmol/L (98-107); Glucose 126 mg/dL (74-106); Potassium 3.8 mmol/L (3.5-5.1); Sodium 141 mmol/L (136-145)
[2021-01-07 08:05] LABS: Absolute Lymphocyte Count 0.88 10^3/uL (1.2-3.4); Absolute Neutrophil Count 3.37 10^3/uL (1.2-6.7); Atypical Lymphocytes % 6; Bands % 2
[2021-01-07 08:06] LABS: Absolute Monocyte Count 0.37 10^3/uL (0.1-0.8); Diff Comment Manual Differential; RBC Morphology Normal
[2021-01-07 08:30] LABS: D-Dimer 1109 ng/mlFEU (<500)
--- NOTE | 2021-01-07 08:39 | PDOC.CMIN ---
- If Service Date Differs Date of service: 01/07/21 Time of Service: 08:39 Care Management Initial Assess REASON FOR HOSPITALIZATION:: Afib with RVR and Covid PAST MEDICAL HISTORY/PAST SURGICAL HISTORY:: Active Problem List . Essential hypertension (Acute). History of bladder cancer (Acute 01/07/16). Nicotine dependence (Acute). Tubular adenoma (Acute ~11/2019). COPD (chronic obstructive pulmonary disease) (Chronic). Medical History . Hypertension. Inguinal hernia without obstruction or gangrene (07/04/17). Left nasal polyps (03/17/16). Surgical History . Bilateral Inguinal Hernia Repair. Colonoscopy - IV Sedation. 2015-hyperplastic polyp PREVIOUS FUNCTIONAL STATUS/SOCIAL/FAMILY SUPPORTS:: Jaison lives in [place] with his Janice and one adult daughter. Janice and Jaison have 5 other children who live locally and are supportive. 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 CURRENT FUNCTIONAL STATUS:: Jaison is on Covid isolation so CM was unable to meet with him in person. CM was able to speak to him over the phone and he was pleasant and cooperative with questioning. Jaison has afib and his heartrate has accelerated into the 140s to 150s with activity. His oxygen needs have also increased today from 3L/min to 4L/min with oxygen saturation levels in the low to mid 90's most of the day. per provider, Jaison does feel subjectively better and his appetite has improved. ADVANCE DIRECTIVES:: none on file. not interested at this time Has patient been provided with info about the portal/API?: Yes Did the patient sign up for the portal?: No CODE STATUS:: Full Code INSURANCE COVERAGE / FINANCIAL ISSUES:: AARP [facility] MCR Replacement CURRENT HOME/COMMUNITY SERVICES/EQUIPMENT:: none currently PRIMARY CARE PHYSICIAN:: Tiera Blackwood POTENTIAL DISCHARGE NEEDS:: Follow up with PCP and plan of care PATIENT/FAMILY EDUCATION NEEDS:: Review of discharge instructions, activity, follow up plan, medications and limitations and discuss [facility] [employer] TRANSPORTATION:: via private vehicle with family PLAN:: Jaison will likely be discharged home with no new services unless he requires oxygen. He will follow up with his community providers and plan of care and transport with family. CM will continue to support discharge needs.
[2021-01-07 08:52] LABS: Ferritin 1330 ng/mL (26-388)
[2021-01-07] MEDS: Mometasone 220 MCG 14 DOSE INHALER 2 PUFF IH ×2 (09:18→20:06)
[2021-01-07] MEDS: Nicotine 21 MG/24 HR PATCH TD (09:19)
[2021-01-07] MEDS: Tiotropium/Olodaterol 10 PUFF INHALER 2 PUFF IH (09:19)
[2021-01-07] MEDS: Psyllium PKT 1 EACH PO (09:19)
[2021-01-07] MEDS: DOXYCYCLINE 100 MG in Normal Saline 100 ML IVPB ×2 (09:20→20:08)
[2021-01-07] MEDS: Furosemide 20 MG TAB PO ×2 (09:23→16:05)
[2021-01-07] MEDS: Docusate Sodium 100 MG CAP PO ×3 (09:24→20:08)
[2021-01-07] MEDS: Ascorbic Acid 500 MG TAB 1000 MG PO ×2 (09:24→20:07)
[2021-01-07] MEDS: Famotidine 20 MG TAB PO ×2 (09:24→20:06)
[2021-01-07] MEDS: Dexamethasone 4 MG TAB 6 MG PO (09:24)
[2021-01-07] MEDS: Cholecalciferol (Vitamin D3) 1,000 UNIT TAB 2000 UNITS PO (09:24)
[2021-01-07] MEDS: Zinc Sulfate 220 MG TAB PO (09:24)
[2021-01-07] MEDS: Metoprolol 5 MG/5 ML VIAL IVP ×2 (09:53→13:05)
[2021-01-07] MEDS: Bisoprolol 5 MG TAB 10 MG PO ×2 (11:14→13:23)
--- NOTE | 2021-01-07 11:29 | NUR.NOTE ---
Nursing Note: Add bisoprolol at 1115. Patient's bp and AP were within parameter. He remains on 4 L 02 will monitor
--- NOTE | 2021-01-07 12:51 | PGE_ITS ---
Date of Service Date of service: 01/07/21 Time of Service: 12:51 Assessment and Plan Assessment and plan (1) COVID: Status: Acute Assessment and plan: Patient received Actemra last night and is currently on Decadron in the Remdesivir. He is also on ceftriaxone and doxycycline pending repeat procalcitonin levels. He has no fever and no purulent sputum production so I suspect there is no bacterial pneumonia. However his oxygen requirements did go up today to 4 L/min per nasal cannula from 3 L/min per nasal cannula last night. I will repeat his Actemra dose today. (2) Atrial fibrillation with RVR: Status: Acute Assessment and plan: Variable ventricular rate control. At rest he seems to be in the 90s to low 100s but with activity he will have a sustained heart rate in the 140s to 150s. Patient has been switched from Lopressor to bisoprolol. I have added diltiazem 60 mg p.o. 3 times daily to his regimen. He has as needed IV Lopressor for sustained heart rates above 130. He is now anticoagulated systemically with enoxaparin. (3) Essential hypertension: Status: Acute Assessment and plan: Patient is currently on amlodipine 10 mg daily. We will hold this for now as we are treating him with Lopressor and diltiazem. (4) COPD (chronic obstructive pulmonary disease): Status: Chronic Assessment and plan: Patient was never put on DuoNeb aerosol treatments. We will only use Xopenex on a as needed basis for wheezing. We will try to avoid excess beta stimulation which could contribute to his tachycardia. However we will keep him on his home dose of fluticasone propionate (Flovent), and Anoro Ellipta assuming he is able to have someone bring those in for him. Otherwise we will substitute. Qualifiers: COPD type: chronic bronchitis Chronic bronchitis type: unspecified Qualified Code(s): J42 - Unspecified chronic bronchitis (5) History of bladder cancer: Status: Acute Assessment and plan: Cause of his underlying bladder cancer is high risk for deterioration from his COVID-19 pneumonia. He is not currently receiving chemotherapy therefore he is an acceptable candidate for Actemra. Subjective Subjective Interval history since last seen: Mr. Quezada is feeling markedly better today he is actually has an appetite feels like eating. However he is having problems with rapid atrial fibrillation with any activity and requiring frequent boluses of IV Lopressor. He was on scheduled dose of oral Lopressor 12.5 mg p.o. 4 times daily. I will switch him over to bisoprolol 10 mg daily and will also add diltiazem to his regimen. Exam Narrative Exam Narrative: Middle-aged white male alert and oriented sitting up eating his lunch. He is in no acute distress able to talk in complete sentences. Lungs with fine bibasilar rales no rhonchi or wheezing Heart irregular regular tachycardic no murmur rub Abdomen soft and nontender Extremities without peripheral cyanosis or edema Objective Last Vital Signs Temp 36.5 C 01/07/21 11:16 Pulse 109 H 01/07/21 11:16 Resp 18 01/07/21 11:16 BP 112/69 01/07/21 11:16 Pulse Ox 96 01/07/21 11:16 Laboratory Results - last 24 hr 01/06/21 01/06/21 01/06/21 13:05 13:05 13:05 WBC 10.18 RBC 4.58 Hgb 13.9 Hct 41.3 MCV 90.2 MCH 30.3 MCHC 33.7 RDW 13.2 Plt Count 252 MPV 10.0 Immature Gran % 0.5 Neutrophils % 86.3 Band Neutrophils % Lymphocytes % 9.0 Atypical Lymphs % Monocytes % 4.1 Eosinophils % 0.0 Basophils % 0.1 Nucleated RBC % 0 Absolute Neutrophils 8.78 H Absolute Lymphocytes 0.92 L Absolute Monocytes 0.42 Absolute Eosinophils 0.00 Absolute Basophils 0.01 RBC Morphology ESR PT 10.3 INR 1.0 APTT 30.7 H D-Dimer 1638 H VBG Lactate Sodium 138 Potassium 4.0 Chloride 102 Carbon Dioxide 25.8 Anion Gap 10.2 BUN 30 H Creatinine 1.1 Estimated GFR/1.73 m2 >= 60.00 Glucose 106 Calcium 8.9 Magnesium Ferritin 1374 H Total Bilirubin 0.5 AST 55 H ALT 47 Alkaline Phosphatase 36 L Lactate Dehydrogenase 368 H Creatine Kinase Troponin I C-Reactive Protein 9.20 H NT-Pro-B Natriuret Pep 1288 H Total Protein 7.4 Albumin 3.4 Procalcitonin TSH Urine Color Urine Clarity Urine pH Ur Specific [place] Urine Protein Urine Ketones Urine Blood Urine Nitrite Urine Bilirubin Urine Urobilinogen Ur Leukocyte Esterase Urine RBC Urine WBC Ur Epithelial Cells Urine Crystals Urine Bacteria Urine Casts Urine Mucus Ur Culture Indicated? Urine Glucose COVID-19 Source SARS-CoV-2 (PCR) Patient ABO/Rh Antibody Screen 01/06/21 01/06/21 01/06/21 13:05 13:05 13:05 WBC RBC Hgb Hct MCV MCH MCHC RDW Plt Count MPV Immature Gran % Neutrophils % Band Neutrophils % Lymphocytes % Atypical Lymphs % Monocytes % Eosinophils % Basophils % Nucleated RBC % Absolute Neutrophils Absolute Lymphocytes Absolute Monocytes Absolute Eosinophils Absolute Basophils RBC Morphology ESR 22 H PT INR APTT D-Dimer VBG Lactate 2.8 H* Sodium Potassium Chloride Carbon Dioxide Anion Gap BUN Creatinine Estimated GFR/1.73 m2 Glucose Calcium Magnesium 2.4 Ferritin Total Bilirubin AST ALT Alkaline Phosphatase Lactate Dehydrogenase Creatine Kinase Troponin I < 0.05 C-Reactive Protein NT-Pro-B Natriuret Pep Total Protein Albumin Procalcitonin 0.1 TSH Urine Color Urine Clarity Urine pH Ur Specific [place] Urine Protein Urine Ketones Urine Blood Urine Nitrite Urine Bilirubin Urine Urobilinogen Ur Leukocyte Esterase Urine RBC Urine WBC Ur Epithelial Cells Urine Crystals Urine Bacteria Urine Casts Urine Mucus Ur Culture Indicated? Urine Glucose COVID-19 Source SARS-CoV-2 (PCR) Patient ABO/Rh Antibody Screen 01/06/21 01/06/21 01/06/21 13:05 13:30 16:00 WBC RBC Hgb Hct MCV MCH MCHC RDW Plt Count MPV Immature Gran % Neutrophils % Band Neutrophils % Lymphocytes % Atypical Lymphs % Monocytes % Eosinophils % Basophils % Nucleated RBC % Absolute Neutrophils Absolute Lymphocytes Absolute Monocytes Absolute Eosinophils Absolute Basophils RBC Morphology ESR PT INR APTT D-Dimer VBG Lactate Sodium Potassium Chloride Carbon Dioxide Anion Gap BUN Creatinine Estimated GFR/1.73 m2 Glucose Calcium Magnesium Ferritin Total Bilirubin AST ALT Alkaline Phosphatase Lactate Dehydrogenase Creatine Kinase Troponin I < 0.05 C-Reactive Protein NT-Pro-B Natriuret Pep Total Protein Albumin Procalcitonin TSH 1.51 Urine Color Urine Clarity Urine pH Ur Specific [place] Urine Protein Urine Ketones Urine Blood Urine Nitrite Urine Bilirubin Urine Urobilinogen Ur Leukocyte Esterase Urine RBC Urine WBC Ur Epithelial Cells Urine Crystals Urine Bacteria Urine Casts Urine Mucus Ur Culture Indicated? Urine Glucose COVID-19 Source Nasal/Nares SARS-CoV-2 (PCR) POSITIVE A* Patient ABO/Rh Antibody Screen 01/06/21 01/06/21 01/06/21 16:00 16:55 16:55 WBC RBC Hgb Hct MCV MCH MCHC RDW Plt Count MPV Immature Gran % Neutrophils % Band Neutrophils % Lymphocytes % Atypical Lymphs % Monocytes % Eosinophils % Basophils % Nucleated RBC % Absolute Neutrophils Absolute Lymphocytes Absolute Monocytes Absolute Eosinophils Absolute Basophils RBC Morphology ESR PT INR APTT D-Dimer VBG Lactate Sodium Potassium Chloride Carbon Dioxide Anion Gap BUN Creatinine Estimated GFR/1.73 m2 Glucose Calcium Magnesium Ferritin Total Bilirubin AST ALT Alkaline Phosphatase Lactate Dehydrogenase Creatine Kinase 185 Troponin I C-Reactive Protein NT-Pro-B Natriuret Pep Total Protein Albumin Procalcitonin TSH Urine Color Yellow Urine Clarity Clear Urine pH 6.0 Ur Specific [place] 1.015 Urine Protein 100 H Urine Ketones 15 H Urine Blood Trace-intact H Urine Nitrite Negative Urine Bilirubin Negative Urine Urobilinogen 0.2 Ur Leukocyte Esterase Negative Urine RBC 0-2 Urine WBC Negative Ur Epithelial Cells Negative Urine Crystals Negative Urine Bacteria Negative Urine Casts 0-2 Hyaline Urine Mucus Trace Ur Culture Indicated? No Urine Glucose Negative COVID-19 Source SARS-CoV-2 (PCR) Patient ABO/Rh B Negative Antibody Screen NEGATIVE 01/07/21 01/07/21 01/07/21 07:25 07:25 07:25 WBC 4.62 D RBC 4.33 L Hgb 13.0 L Hct 38.6 L MCV 89.1 MCH 30.0 MCHC 33.7 RDW 13.4 Plt Count 230 MPV 9.9 Immature Gran % See Differential Neutrophils % 71.0 Band Neutrophils % 2 Lymphocytes % 13.0 Atypical Lymphs % 6 Monocytes % 8.0 Eosinophils % 0.0 Basophils % 0.0 Nucleated RBC % 0 Absolute Neutrophils 3.37 Absolute Lymphocytes 0.88 L Absolute Monocytes 0.37 Absolute Eosinophils 0.00 Absolute Basophils 0.00 RBC Morphology Normal ESR PT INR APTT D-Dimer 1109 H VBG Lactate Sodium 141 Potassium 3.8 Chloride 108 H Carbon Dioxide 25.0 Anion Gap 8.0 BUN 35 H Creatinine 0.8 Estimated GFR/1.73 m2 >= 60.00 Glucose 126 H Calcium 8.2 L Magnesium Ferritin 1330 H Total Bilirubin 0.3 AST 30 ALT 36 Alkaline Phosphatase 28 L Lactate Dehydrogenase Creatine Kinase Troponin I C-Reactive Protein 7.81 H NT-Pro-B Natriuret Pep Total Protein 6.0 L Albumin 2.4 L Procalcitonin TSH Urine Color Urine Clarity Urine pH Ur Specific [place] Urine Protein Urine Ketones Urine Blood Urine Nitrite Urine Bilirubin Urine Urobilinogen Ur Leukocyte Esterase Urine RBC Urine WBC Ur Epithelial Cells Urine Crystals Urine Bacteria Urine Casts Urine Mucus Ur Culture Indicated? Urine Glucose COVID-19 Source SARS-CoV-2 (PCR) Patient ABO/Rh Antibody Screen PAWSS Have you Been Recently Intoxicated or Drunk Within the Last 30 days?: No Have you Ever Experienced Previous Episodes of Alcohol Withdrawal?: No Have you ever Experienced Withdrawal Seizures?: No Have you ever Experienced Delirium Tremens(DT)s?: No Have you ever undergone Alcohol Rehabilitation Treatment (i.e, inpt ot outpatient treatment programs)?: No Have you ever Experienced Blackouts?: No Have you ever Combined Alcohol with any other Substance of Abuse during the last 90 days?: No Positive Blood Alcohol level on Presentation? [PCS.BAL]: No Evidence of Increased Autonomic Activity (i.e. HR>120, tremor, sweating, agitation, nausea)?: No Result: 0
[2021-01-07] MEDS: Verapamil 5 MG/2 ML VIAL IVP (13:20)
--- NOTE | 2021-01-07 15:13 | PHA.REVIEW ---
Pharmacy Admission Review - Admission Clinical Review (Last Reviewed 01/06/21 @ 13:20 by MARY Hawthorne) COVID (Acute) Atrial fibrillation with RVR (Acute) Essential hypertension (Acute) History of bladder cancer (Acute 01/07/16) lisinopril Adverse Reaction (Severe, Verified 01/06/21 13:10) Hyperkalemia Resuscitation Status Full Code Height 5 ft 8.11 in Weight 75.4 kg - Renal Dosing Renal Dosing: BUN 35 mg/dL (7-18) H 01/07/21 07:25 Creatinine 0.8 mg/dL (0.70-1.30) 01/07/21 07:25 Medications needing adjustments: Reviewed List of meds needing interventions: eCrCl 87 ml/min - Anticoagulation Anticoagulation: Hgb 13.0 g/dL (13.5-17.5) L 01/07/21 07:25 Hct 38.6 % (40.0-50.0) L 01/07/21 07:25 Plt Count 230 10^3/uL (130-400) 01/07/21 07:25 INR 1.0 (0.9-1.1) 01/06/21 13:05 Creatinine 0.8 mg/dL (0.70-1.30) 01/07/21 07:25 DVT Prophylaxis: Reviewed Therapeutic Anticoagulation: Reviewed Medications: Enoxaparin - Opiate Usage Evaluate Pain Scale/Pains Meds: N/A - Relevant Labs ESR 22 mm/hr (0-20) H 01/06/21 13:05 Sodium 141 mmol/L (136-145) 01/07/21 07:25 Potassium 3.8 mmol/L (3.5-5.1) 01/07/21 07:25 Chloride 108 mmol/L (98-107) H 01/07/21 07:25 Magnesium 2.4 mg/dL (1.8-2.4) 01/06/21 13:05 C-Reactive Protein 7.81 mg/dL (0.0-0.3) H 01/07/21 07:25 Electrolytes, C-Reactive P, ESR: Reviewed - DM Control DM Control: Glucose 126 mg/dL (74-106) H 01/07/21 07:25 Insulin Dosing: N/A - Heart Failure/MO Heart Failure/MO: Troponin I < 0.05 ng/mL (<0.06) 01/06/21 16:00 NT-Pro-B Natriuret Pep 1288 pg/mL (<300) H 01/06/21 13:05 EF%, FAYE's, B-Blockers, Diuretics: Reviewed - BP Control BP Control: Blood Pressure 102/63 Blood Pressure 107/61 Blood Pressure 111/75 Blood Pressure 112/69 Blood Pressure 125/81 Blood Pressure 123/81 Blood Pressure 112/73 If elevated: Reviewed List meds needing interventions: bisoprolol and diltiazem started - Qtc Review List meds needing interventions: qtc 426 on admission - IV to PO Switch IV Medications: Reviewed - Current meds Current Medication Order Review: Reviewed (Actemra was ordered at *8*mg/kg (600mg) based on current NIH rec -- due to short supply we only had 400 & 80mg vials in stock so I ordered 640mg dose yesterday with the likelihood that a second infusion would be given today of the remaining 560mg we had in stock so patient rec'd 1200mg total) - Comments Comments/Follow Ups: 2 doses of Actemra were given -- the first 640mg and the second 560 mg for a total of 1200mg (current NIH recommendations are 8mg/kg/dose so 600mg x 2), remdesivir and decadron continue
--- NOTE | 2021-01-07 16:00 | PHA.REVIEW ---
Pharmacy Admission Review - Admission Clinical Review (Last Reviewed 01/06/21 @ 13:20 by MARY Hawthorne) COVID (Acute) Atrial fibrillation with RVR (Acute) Essential hypertension (Acute) History of bladder cancer (Acute 01/07/16) lisinopril Adverse Reaction (Severe, Verified 01/06/21 13:10) Hyperkalemia Resuscitation Status Full Code Height 5 ft 8.11 in Weight 75.4 kg - Renal Dosing Renal Dosing: BUN 35 mg/dL (7-18) H 01/07/21 07:25 Creatinine 0.8 mg/dL (0.70-1.30) 01/07/21 07:25 - Anticoagulation Anticoagulation: Hgb 13.0 g/dL (13.5-17.5) L 01/07/21 07:25 Hct 38.6 % (40.0-50.0) L 01/07/21 07:25 Plt Count 230 10^3/uL (130-400) 01/07/21 07:25 INR 1.0 (0.9-1.1) 01/06/21 13:05 Creatinine 0.8 mg/dL (0.70-1.30) 01/07/21 07:25 - Relevant Labs ESR 22 mm/hr (0-20) H 01/06/21 13:05 Sodium 141 mmol/L (136-145) 01/07/21 07:25 Potassium 3.8 mmol/L (3.5-5.1) 01/07/21 07:25 Chloride 108 mmol/L (98-107) H 01/07/21 07:25 Magnesium 2.4 mg/dL (1.8-2.4) 01/06/21 13:05 C-Reactive Protein 7.81 mg/dL (0.0-0.3) H 01/07/21 07:25 - DM Control DM Control: Glucose 126 mg/dL (74-106) H 01/07/21 07:25 - Heart Failure/WA Heart Failure/WA: Troponin I < 0.05 ng/mL (<0.06) 01/06/21 16:00 NT-Pro-B Natriuret Pep 1288 pg/mL (<300) H 01/06/21 13:05 - BP Control BP Control: Blood Pressure 102/63 Blood Pressure 107/61 Blood Pressure 111/75 Blood Pressure 112/69 Blood Pressure 125/81 Blood Pressure 123/81 Blood Pressure 112/73 - Home Meds Home Med List reviewed: Reviewed Relevent Home Meds Not ordered & why?: amlodipine (being acutely managed with bisoprolol and diltiazem); asmanex ordered in place of flovent and stiolo ordered in place of anoro per hospital formulary
[2021-01-07] MEDS: dilTIAZem 30 MG TAB 60 MG PO (16:05)
[2021-01-07] MEDS: Normal Saline Flush 10 ML SYR (16:06)
[2021-01-07] MEDS: Atorvastatin 40 MG TAB PO (20:07)
[2021-01-07] MEDS: dilTIAZem 60 MG TAB PO (20:07)
[2021-01-07] MEDS: cefTRIAXone 1 GM/50 ML BAG IVPB (20:08)
[2021-01-07] MEDS: Senna TAB 1 TAB PO (21:30)
[2021-01-08] VITALS (10 sets, daily range): BP systolic 103–115; BP diastolic 73–80; PULSE 83–104; RESP 16–22; TEMP 35–36.7; O2SAT 92–97
[2021-01-08] MEDS: Enoxaparin 80 MG/0.8 ML SYR 75 MG SC ×2 (05:35→18:21)
[2021-01-08 07:20] LABS: Abs Immature Grans 0.08 10^3/uL (0.0-0.06); Absolute Basophil Count 0.01 10^3/uL (0.0-0.2); Absolute Lymphocyte Count 0.91 10^3/uL (1.2-3.4); Absolute Monocyte Count 0.54 10^3/uL (0.1-0.8); Absolute Neutrophil Count 8.67 10^3/uL (1.2-6.7); Basophils % 0.1; HCT 37.8 % (40.0-50.0); HGB 12.5 g/dL (13.5-17.5); Immature Grans % 0.8; Lymphocytes % 8.9; MCH 29.6 pg (27.0-33.0); MCHC 33.1 % (32.0-36.0); MCV 89.6 fL (80-95); MPV 10.1 fL (8.0-11.0); Monocytes % 5.3; Neutrophils % 84.9; Nucleated RBC 0 %; Platelet Count 293 10^3/uL (130-400); RBC 4.22 10^6/uL (4.36-5.78); RDW 13.6 % (11.8-14.1); WBC 10.21 10^3/uL (4.4-10.8)
[2021-01-08 07:52] LABS: ALT 47 U/L (16-63); AST 33 U/L (15-37); Albumin 2.5 g/dL (3.4-5.0); Alkaline Phosphatase 33 U/L (46-116); Anion Gap 9.7 mmol/L (3-11); BUN 40 mg/dL (7-18); Bilirubin, Total 0.2 mg/dL (0.2-1.0); CO2 23.3 mmol/L (21.0-32.0); CREATININE 0.8 mg/dL (0.70-1.30); Calcium 8.2 mg/dL (8.5-10.1); Chloride 110 mmol/L (98-107); Glucose 122 mg/dL (74-106); Potassium 3.9 mmol/L (3.5-5.1); Sodium 143 mmol/L (136-145); Total Protein 5.8 g/dL (6.4-8.2)
[2021-01-08 08:05] LABS: D-Dimer 687 ng/mlFEU (<500)
[2021-01-08] MEDS: Normal Saline Flush 10 ML SYR IVP ×2 (08:14→23:37)
[2021-01-08] MEDS: Nicotine 21 MG/24 HR PATCH TD (08:14)
[2021-01-08] MEDS: DOXYCYCLINE 100 MG in Normal Saline 100 ML IVPB ×2 (08:14→21:05)
[2021-01-08] MEDS: Psyllium PKT 1 EACH PO ×2 (08:15→21:08)
[2021-01-08] MEDS: Bisoprolol 5 MG TAB 10 MG PO (08:15)
[2021-01-08] MEDS: Cholecalciferol (Vitamin D3) 1,000 UNIT TAB 2000 UNITS PO (08:15)
[2021-01-08] MEDS: dilTIAZem 60 MG TAB PO (08:16)
[2021-01-08] MEDS: Ascorbic Acid 500 MG TAB 1000 MG PO ×2 (08:16→21:04)
[2021-01-08] MEDS: Zinc Sulfate 220 MG TAB PO (08:16)
[2021-01-08] MEDS: Famotidine 20 MG TAB PO ×2 (08:16→21:05)
[2021-01-08] MEDS: Docusate Sodium 100 MG CAP PO ×3 (08:17→21:04)
[2021-01-08] MEDS: Dexamethasone 4 MG TAB 6 MG PO (08:17)
[2021-01-08] MEDS: Furosemide 20 MG TAB PO ×2 (08:17→16:20)
[2021-01-08] MEDS: Tiotropium/Olodaterol 10 PUFF INHALER 2 PUFF IH (08:18)
[2021-01-08] MEDS: Mometasone 220 MCG 14 DOSE INHALER 2 PUFF IH ×2 (08:18→21:07)
[2021-01-08 08:58] LABS: Ferritin 1343 ng/mL (26-388)
[2021-01-08] MEDS: dilTIAZem CD 180 MG CAPCR PO (12:24)
--- NOTE | 2021-01-08 15:01 | PGE_ITS ---
Date of Service Date of service: 01/08/21 Time of Service: 15:01 Assessment and Plan Assessment and plan (1) COVID: Status: Acute Assessment and plan: With hypoxia. Presently on 3L of O2. S/p Actemra. Continue Decadron, Remdesivir. Continue ceftriaxone and doxycycline - repeat procalcitonin in am. Continue supplementation with vitamin C, D, zinc . Continue atorvastatin, f amotidine, (2) Atrial fibrillation with RVR: Status: Acute Assessment and plan: Rate has been controlled. Convert diltiazem to long acting today and continue bisoprolol. Continue systemic enoxaparin with plans to convert to a DOAC. Will need outpatient echo. (3) Essential hypertension: Status: Acute Assessment and plan: BPs adequately controlled on above meds. Change diet to heart healthy. (4) COPD (chronic obstructive pulmonary disease): Status: Chronic Assessment and plan: Not in obvious COPD exacerbation at this time. Continue Xopenex prn, home fluticasone, and Anoro Ellipta. Qualifiers: COPD type: chronic bronchitis Chronic bronchitis type: unspecified Qualified Code(s): J42 - Unspecified chronic bronchitis (5) History of bladder cancer: Status: Chronic Assessment and plan: F/u as outpatient (6) DVT prophylaxis: Status: Acute Assessment and plan: Fully anticoagulated with lovenox (7) Discharge planning issues: Status: Acute Assessment and plan: Full code Continues to require hospitalization. Subjective Subjective Interval history since last seen: I feel a little better. Shortness of breath is better. Showered today. Lost his balance today -describes it as dizzy feeling, but did not fall. Denies chest pain, nausea. Diarrhea has resolved. Tele: Afib, HR in the 90s (78-104 overnight). Exam Narrative Exam Narrative: General: Very pleasant middle-aged male, A&Ox3, NAD. HEENT: EOMI, MMM Heart: irregularly irregular rhythm, no m/r/g Lungs: CTAB - diminished at B bases Abdomen: soft, nontender, nondistended Extremities: no edema BLE's Objective Last Vital Signs Temp 35.5 C L 01/08/21 12:25 Pulse 99 H 01/08/21 12:25 Resp 16 01/08/21 12:25 BP 109/74 01/08/21 12:25 Pulse Ox 92 01/08/21 12:25 Laboratory Results - last 24 hr 01/08/21 01/08/21 01/08/21 07:05 07:05 07:05 WBC 10.21 D RBC 4.22 L Hgb 12.5 L Hct 37.8 L MCV 89.6 MCH 29.6 MCHC 33.1 RDW 13.6 Plt Count 293 MPV 10.1 Immature Gran % 0.8 Neutrophils % 84.9 Lymphocytes % 8.9 Monocytes % 5.3 Eosinophils % 0.0 Basophils % 0.1 Nucleated RBC % 0 Absolute Neutrophils 8.67 H Absolute Lymphocytes 0.91 L Absolute Monocytes 0.54 Absolute Eosinophils 0.00 Absolute Basophils 0.01 D-Dimer 687 H Sodium 143 Potassium 3.9 Chloride 110 H Carbon Dioxide 23.3 Anion Gap 9.7 BUN 40 H Creatinine 0.8 Estimated GFR/1.73 m2 >= 60.00 Glucose 122 H Calcium 8.2 L Ferritin 1343 H Total Bilirubin 0.2 AST 33 ALT 47 Alkaline Phosphatase 33 L C-Reactive Protein 3.90 H Total Protein 5.8 L Albumin 2.5 L PAWSS Have you Been Recently Intoxicated or Drunk Within the Last 30 days?: No Have you Ever Experienced Previous Episodes of Alcohol Withdrawal?: No Have you ever Experienced Withdrawal Seizures?: No Have you ever Experienced Delirium Tremens(DT)s?: No Have you ever undergone Alcohol Rehabilitation Treatment (i.e, inpt ot outpatient treatment programs)?: No Have you ever Experienced Blackouts?: No Have you ever Combined Alcohol with any other Substance of Abuse during the last 90 days?: No Positive Blood Alcohol level on Presentation? [PCS.BAL]: No Evidence of Increased Autonomic Activity (i.e. HR>120, tremor, sweating, agitation, nausea)?: No Result: 0
[2021-01-08] MEDS: Atorvastatin 40 MG TAB PO (21:05)
[2021-01-08] MEDS: cefTRIAXone 1 GM/50 ML BAG IVPB (21:05)
[2021-01-08] MEDS: Senna TAB 1 TAB PO (22:46)
[2021-01-09] VITALS (9 sets, daily range): BP systolic 97–121; BP diastolic 66–85; PULSE 73–101; RESP 18–21; TEMP 35.9–37.6; O2SAT 93–95
[2021-01-09] MEDS: Normal Saline Flush 10 ML SYR IVP ×2 (00:07→21:58)
[2021-01-09] MEDS: Enoxaparin 80 MG/0.8 ML SYR 75 MG SC ×2 (05:29→17:05)
[2021-01-09 07:44] LABS: Abs Immature Grans 0.08 10^3/uL (0.0-0.06); Absolute Basophil Count 0.01 10^3/uL (0.0-0.2); Absolute Lymphocyte Count 0.91 10^3/uL (1.2-3.4); Absolute Monocyte Count 0.68 10^3/uL (0.1-0.8); Basophils % 0.1; HCT 36.4 % (40.0-50.0); HGB 12.2 g/dL (13.5-17.5); Immature Grans % 0.7; MCHC 33.5 % (32.0-36.0); MCV 89.7 fL (80-95); MPV 9.7 fL (8.0-11.0); Neutrophils % 85.2; Nucleated RBC 0 %; Platelet Count 336 10^3/uL (130-400); RBC 4.06 10^6/uL (4.36-5.78); RDW 13.8 % (11.8-14.1); RDW-SD 45.5 fL; WBC 11.38 10^3/uL (4.4-10.8)
[2021-01-09 08:06] LABS: ALT 67 U/L (16-63); AST 40 U/L (15-37); Albumin 2.5 g/dL (3.4-5.0); Alkaline Phosphatase 34 U/L (46-116); Anion Gap 6.6 mmol/L (3-11); BUN 34 mg/dL (7-18); Bilirubin, Total 0.3 mg/dL (0.2-1.0); CO2 26.4 mmol/L (21.0-32.0); CREATININE 0.7 mg/dL (0.70-1.30); Calcium 8.1 mg/dL (8.5-10.1); Chloride 109 mmol/L (98-107); Glucose 119 mg/dL (74-106); Potassium 4.1 mmol/L (3.5-5.1); Sodium 142 mmol/L (136-145); Total Protein 5.7 g/dL (6.4-8.2)
[2021-01-09 08:19] LABS: D-Dimer 484 ng/mlFEU (<500)
[2021-01-09] MEDS: Ascorbic Acid 500 MG TAB 1000 MG PO ×2 (08:21→20:44)
[2021-01-09] MEDS: Nicotine 21 MG/24 HR PATCH TD (08:21)
[2021-01-09] MEDS: Psyllium PKT 1 EACH PO ×2 (08:22→20:43)
[2021-01-09] MEDS: Bisoprolol 5 MG TAB 10 MG PO (08:22)
[2021-01-09] MEDS: Famotidine 20 MG TAB PO ×2 (08:24→20:44)
[2021-01-09] MEDS: DOXYCYCLINE 100 MG in Normal Saline 100 ML IVPB ×2 (08:24→20:42)
[2021-01-09] MEDS: Docusate Sodium 100 MG CAP PO ×3 (08:24→20:44)
[2021-01-09] MEDS: Cholecalciferol (Vitamin D3) 1,000 UNIT TAB 2000 UNITS PO (08:24)
[2021-01-09] MEDS: Dexamethasone 4 MG TAB 6 MG PO (08:24)
[2021-01-09] MEDS: Furosemide 20 MG TAB PO ×2 (08:24→16:06)
[2021-01-09] MEDS: Mometasone 220 MCG 14 DOSE INHALER 2 PUFF IH ×2 (08:24→22:01)
[2021-01-09] MEDS: dilTIAZem CD 180 MG CAPCR PO (08:24)
[2021-01-09] MEDS: Zinc Sulfate 220 MG TAB PO (08:25)
[2021-01-09] MEDS: Tiotropium/Olodaterol 10 PUFF INHALER 2 PUFF IH (08:25)
[2021-01-09 08:37] LABS: Ferritin 921 ng/mL (26-388)
[2021-01-09] MEDS: dilTIAZem 60 MG TAB PO (13:22)
--- NOTE | 2021-01-09 16:10 | W.PM.PROGNOT ---
Date of Service Date of service: 01/09/21 Time of Service: 16:10 Assessment and Plan Assessment and plan (1) COVID: Status: Acute Assessment and plan: With hypoxia. Presently on 2L of O2, improving. S/p Actemra. Continue Decadron, Remdesivir. Continue ceftriaxone and doxycycline - repeat procalcitonin in am. Continue supplementation with vitamin C, D, zinc. Continue atorvastatin, famotidine, (2) Atrial fibrillation with RVR: Status: Acute Assessment and plan: Rate has been controlled. Increase cardizem to 240 mg daily; continue bisoprolol. Continue systemic enoxaparin with plans to convert to a DOAC. Will need outpatient echo. (3) Essential hypertension: Status: Acute Assessment and plan: BPs adequately controlled on above meds. Continue heart healthy diet. (4) COPD (chronic obstructive pulmonary disease): Status: Chronic Assessment and plan: Not in obvious COPD exacerbation at this time. Continue Xopenex prn, home fluticasone, and Anoro Ellipta. Qualifiers: COPD type: chronic bronchitis Chronic bronchitis type: unspecified Qualified Code(s): J42 - Unspecified chronic bronchitis (5) History of bladder cancer: Status: Chronic Assessment and plan: F/u as outpatient (6) DVT prophylaxis: Status: Acute Assessment and plan: Fully anticoagulated with lovenox (7) Discharge planning issues: Status: Acute Assessment and plan: Full code Continues to require hospitalization. Subjective Subjective Interval history since last seen: Feels better. On 2 L of O2 by NC. No SOB at rest. Denies dizziness, chest pain, shortness of breath, nausea. Exam Narrative Exam Narrative: General: Very pleasant middle-aged male, A&Ox3, NAD. HEENT: EOMI, MMM Heart: irregularly irregular rhythm, no m/r/g Lungs: CTAB - diminished at B bases Abdomen: soft, nontender, nondistended Extremities: no edema BLE's Objective Last Vital Signs Temp 36.7 C 01/09/21 16:04 Pulse 87 01/09/21 16:04 Resp 18 01/09/21 16:04 BP 97/66 L 01/09/21 16:04 Pulse Ox 93 01/09/21 16:04 Laboratory Results - last 24 hr 12/05/21 12/05/21 12/05/21 07:10 07:10 07:10 WBC 11.38 H RBC 4.06 L Hgb 12.2 L Hct 36.4 L MCV 89.7 MCH 30.0 MCHC 33.5 RDW 13.8 Plt Count 336 MPV 9.7 Immature Gran % 0.7 Neutrophils % 85.2 Lymphocytes % 8.0 Monocytes % 6.0 Eosinophils % 0.0 Basophils % 0.1 Nucleated RBC % 0 Absolute Neutrophils 9.70 H Absolute Lymphocytes 0.91 L Absolute Monocytes 0.68 Absolute Eosinophils 0.00 Absolute Basophils 0.01 D-Dimer 484 Sodium 142 Potassium 4.1 Chloride 109 H Carbon Dioxide 26.4 Anion Gap 6.6 BUN 34 H Creatinine 0.7 Estimated GFR/1.73 m2 >= 60.00 Glucose 119 H Calcium 8.1 L Ferritin 921 H Total Bilirubin 0.3 AST 40 H ALT 67 H Alkaline Phosphatase 34 L C-Reactive Protein 2.10 H Total Protein 5.7 L Albumin 2.5 L PAWSS Have you Been Recently Intoxicated or Drunk Within the Last 30 days?: No Have you Ever Experienced Previous Episodes of Alcohol Withdrawal?: No Have you ever Experienced Withdrawal Seizures?: No Have you ever Experienced Delirium Tremens(DT)s?: No Have you ever undergone Alcohol Rehabilitation Treatment (i.e, inpt ot outpatient treatment programs)?: No Have you ever Experienced Blackouts?: No Have you ever Combined Alcohol with any other Substance of Abuse during the last 90 days?: No Positive Blood Alcohol level on Presentation? [PCS.BAL]: No Evidence of Increased Autonomic Activity (i.e. HR>120, tremor, sweating, agitation, nausea)?: No Result: 0
[2021-01-09] MEDS: cefTRIAXone 1 GM/50 ML BAG IVPB (20:42)
[2021-01-09] MEDS: Atorvastatin 40 MG TAB PO (20:44)
[2021-01-10] VITALS (11 sets, daily range): BP systolic 97–117; BP diastolic 64–81; PULSE 73–103; RESP 18–24; TEMP 36–36.6; O2SAT 92–96
[2021-01-10] MEDS: Enoxaparin 80 MG/0.8 ML SYR 75 MG SC ×2 (06:01→17:14)
[2021-01-10 06:47] LABS: Abs Immature Grans 0.07 10^3/uL (0.0-0.06); Absolute Basophil Count 0.02 10^3/uL (0.0-0.2); Absolute Lymphocyte Count 1.23 10^3/uL (1.2-3.4); Absolute Monocyte Count 0.77 10^3/uL (0.1-0.8); Absolute Neutrophil Count 9.61 10^3/uL (1.2-6.7); Basophils % 0.2; HCT 37.1 % (40.0-50.0); HGB 12.5 g/dL (13.5-17.5); Immature Grans % 0.6; Lymphocytes % 10.5; MCH 30.5 pg (27.0-33.0); MCHC 33.7 % (32.0-36.0); MCV 90.5 fL (80-95); MPV 9.5 fL (8.0-11.0); Monocytes % 6.6; Neutrophils % 82.1; Nucleated RBC 0 %; Platelet Count 328 10^3/uL (130-400); RDW 13.4 % (11.8-14.1)
[2021-01-10 06:59] LABS: INR 1.1 (0.9-1.1)
[2021-01-10 07:06] LABS: BUN 36 mg/dL (7-18); C-Reactive Protein 1.27 mg/dL (0.0-0.3); CREATININE 0.8 mg/dL (0.70-1.30); Calcium 8.3 mg/dL (8.5-10.1); Chloride 107 mmol/L (98-107); Glucose 119 mg/dL (74-106); Magnesium 2.3 mg/dL (1.8-2.4); Potassium 4.3 mmol/L (3.5-5.1); Sodium 141 mmol/L (136-145)
[2021-01-10 07:32] LABS: Ferritin 802 ng/mL (26-388)
[2021-01-10 07:41] LABS: Procalcitonin < 0.1 ng/mL
[2021-01-10 08:31] LABS: D-Dimer 365 ng/mlFEU (<500)
[2021-01-10] MEDS: Mometasone 220 MCG 14 DOSE INHALER 2 PUFF IH ×2 (08:33→21:09)
[2021-01-10] MEDS: Tiotropium/Olodaterol 10 PUFF INHALER 2 PUFF IH (08:33)
[2021-01-10] MEDS: Nicotine 21 MG/24 HR PATCH TD (08:34)
[2021-01-10] MEDS: DOXYCYCLINE 100 MG in Normal Saline 100 ML IVPB (08:34)
[2021-01-10] MEDS: Furosemide 20 MG TAB PO ×2 (08:34→16:25)
[2021-01-10] MEDS: Zinc Sulfate 220 MG TAB PO (08:34)
[2021-01-10] MEDS: Famotidine 20 MG TAB PO ×2 (08:35→21:09)
[2021-01-10] MEDS: Cholecalciferol (Vitamin D3) 1,000 UNIT TAB 2000 UNITS PO (08:35)
[2021-01-10] MEDS: dilTIAZem CD 120 MG CAPCR 240 MG PO (08:35)
[2021-01-10] MEDS: Ascorbic Acid 500 MG TAB 1000 MG PO ×2 (08:35→21:08)
[2021-01-10] MEDS: Docusate Sodium 100 MG CAP PO ×2 (08:35→21:08)
[2021-01-10] MEDS: Bisoprolol 5 MG TAB 10 MG PO (08:35)
[2021-01-10] MEDS: Dexamethasone 4 MG TAB 6 MG PO (08:35)
[2021-01-10 09:55] LABS: HIV-1/2 Ag & Ab Screen Negative (Negative)
[2021-01-10 10:35] LABS: HBs Antibody, Qual Negative (See Note); HBs Antibody, Quant <3.1 mIU/mL (See Note); Hepatitis B Core Antibody Negative (Negative); Hepatitis B surface Ag Negative (Negative); Hepatitis C Ab w Rflx HCV PCR Negative (Negative)
--- NOTE | 2021-01-10 13:01 | CMPROGNOTE_ITS ---
- If Service Date Differs Date of service: 01/10/21 Time of Service: 13:01 Care Management Progress Note S/O: CM talked to Jaison over the phone today, as he remains on Covid 19 precautions. Jaison reported that he feels that he is improving, although he is still on supplemental O2. Per report, he is on 2L O2, sat 92%. He is anxious to return home, but reports that he is keeping his family updated. He will continue to be monitored, and have his O2 weaned when appropriate. CM will continue to follow. A: Jaison is a 65 year old male admitted to [facility] on 01/06/21 with Afib with RVR, Covid 19. P: Jaison will likely be discharged home with no new services unless he requires oxygen. He will follow up with his community providers and plan of care and transport with family. CM will continue to support discharge needs.
--- NOTE | 2021-01-10 17:18 | W.PM.PROGNOT ---
Date of Service Date of service: 01/10/21 Time of Service: 17:18 Assessment and Plan Assessment and plan (1) COVID: Status: Acute Assessment and plan: With hypoxia. Currently on room air at rest. S/p Actemra. Continue Decadron, Remdesivir. D/c abx. Check ambulatory pulse ox. Continue supplementation with vitamin C, D, zinc. Continue atorvastatin, famotidine, (2) Atrial fibrillation with RVR: Status: Acute Assessment and plan: Rate has been controlled. There was one pause > 3 sec yesterday afternoon, none since. Continue Cardizem CD 240 mg daily; continue bisoprolol while monitoring for any more significant pauses. No plans to change the dosing for now if it was only 1 pause. Continue systemic enoxaparin with plans to convert to a DOAC on discharge. Will need a cardiac event recorder on discharge. (3) Essential hypertension: Status: Acute Assessment and plan: BPs adequately controlled on above meds. Continue heart healthy diet. (4) COPD (chronic obstructive pulmonary disease): Status: Chronic Assessment and plan: Not in obvious COPD exacerbation at this time. Continue Xopenex prn, home fluticasone, and Anoro Ellipta. Qualifiers: COPD type: chronic bronchitis Chronic bronchitis type: unspecified Qualified Code(s): J42 - Unspecified chronic bronchitis (5) History of bladder cancer: Status: Chronic Assessment and plan: F/u as outpatient (6) DVT prophylaxis: Status: Acute Assessment and plan: Fully anticoagulated with lovenox (7) Discharge planning issues: Status: Acute Assessment and plan: Full code Probable discharge home tomorrow. Subjective Subjective Interval history since last seen: I'm feeling pretty good. Breathing is not too bad. No CP. Steady on his feet. Exam Narrative Exam Narrative: Today's visit was conducted over the phone as the patient is improving (now on RA). Fluent speech, no evidence of dyspnea/tachypnea. Objective Last Vital Signs Temp 36.6 C 01/10/21 16:24 Pulse 73 01/10/21 16:24 Resp 18 01/10/21 16:24 BP 105/65 01/10/21 16:24 Pulse Ox 93 01/10/21 16:24 Laboratory Results - last 24 hr 01/06/21 01/06/21 01/10/21 16:55 16:55 06:40 WBC RBC Hgb Hct MCV MCH MCHC RDW Plt Count MPV Immature Gran % Neutrophils % Lymphocytes % Monocytes % Eosinophils % Basophils % Nucleated RBC % Absolute Neutrophils Absolute Lymphocytes Absolute Monocytes Absolute Eosinophils Absolute Basophils PT INR D-Dimer Sodium 141 Potassium 4.3 Chloride 107 Carbon Dioxide 27.0 Anion Gap 7.0 BUN 36 H Creatinine 0.8 Estimated GFR/1.73 m2 >= 60.00 Glucose 119 H Calcium 8.3 L Magnesium 2.3 Ferritin 802 H C-Reactive Protein 1.27 H Procalcitonin Hep Bs Antigen Negative Hep Bs Antibody Negative Hep Bs Antibody, Quant <3.1 Hep B Core Total Ab Negative Hepatitis C Antibody Negative HIV 1&2 Ag/Ab, 4th Gen Negative 01/10/21 01/10/21 01/10/21 06:40 06:40 06:40 WBC 11.70 H RBC 4.10 L Hgb 12.5 L Hct 37.1 L MCV 90.5 MCH 30.5 MCHC 33.7 RDW 13.4 Plt Count 328 MPV 9.5 Immature Gran % 0.6 Neutrophils % 82.1 Lymphocytes % 10.5 Monocytes % 6.6 Eosinophils % 0.0 Basophils % 0.2 Nucleated RBC % 0 Absolute Neutrophils 9.61 H Absolute Lymphocytes 1.23 Absolute Monocytes 0.77 Absolute Eosinophils 0.00 Absolute Basophils 0.02 PT 11.0 INR 1.1 D-Dimer 365 Sodium Potassium Chloride Carbon Dioxide Anion Gap BUN Creatinine Estimated GFR/1.73 m2 Glucose Calcium Magnesium Ferritin C-Reactive Protein Procalcitonin < 0.1 Hep Bs Antigen Hep Bs Antibody Hep Bs Antibody, Quant Hep B Core Total Ab Hepatitis C Antibody HIV 1&2 Ag/Ab, 4th Gen PAWSS Have you Been Recently Intoxicated or Drunk Within the Last 30 days?: No Have you Ever Experienced Previous Episodes of Alcohol Withdrawal?: No Have you ever Experienced Withdrawal Seizures?: No Have you ever Experienced Delirium Tremens(DT)s?: No Have you ever undergone Alcohol Rehabilitation Treatment (i.e, inpt ot outpatient treatment programs)?: No Have you ever Experienced Blackouts?: No Have you ever Combined Alcohol with any other Substance of Abuse during the last 90 days?: No Positive Blood Alcohol level on Presentation? [PCS.BAL]: No Evidence of Increased Autonomic Activity (i.e. HR>120, tremor, sweating, agitation, nausea)?: No Result: 0
[2021-01-10] MEDS: Atorvastatin 40 MG TAB PO (21:08)
[2021-01-10] MEDS: Psyllium PKT 1 EACH PO (21:08)
[2021-01-10] MEDS: Senna TAB 1 TAB PO (21:09)
[2021-01-11] VITALS (10 sets, daily range): BP systolic 95–125; BP diastolic 65–80; PULSE 74–102; RESP 18; TEMP 36–36.9; O2SAT 92–100
[2021-01-11] MEDS: Enoxaparin 80 MG/0.8 ML SYR 75 MG SC ×2 (05:39→17:44)
[2021-01-11] MEDS: Cholecalciferol (Vitamin D3) 1,000 UNIT TAB 2000 UNITS PO (07:57)
[2021-01-11] MEDS: Mometasone 220 MCG 14 DOSE INHALER 2 PUFF IH ×2 (07:57→21:01)
[2021-01-11] MEDS: Tiotropium/Olodaterol 10 PUFF INHALER 2 PUFF IH (07:57)
[2021-01-11] MEDS: Bisoprolol 5 MG TAB 10 MG PO (07:57)
[2021-01-11] MEDS: Nicotine 21 MG/24 HR PATCH TD (07:57)
[2021-01-11] MEDS: Ascorbic Acid 500 MG TAB 1000 MG PO ×2 (07:58→21:00)
[2021-01-11] MEDS: Famotidine 20 MG TAB PO ×2 (07:58→21:00)
[2021-01-11] MEDS: Furosemide 20 MG TAB PO (07:58)
[2021-01-11] MEDS: dilTIAZem CD 120 MG CAPCR 240 MG PO (07:58)
[2021-01-11] MEDS: Docusate Sodium 100 MG CAP PO ×2 (07:58→21:01)
[2021-01-11] MEDS: Zinc Sulfate 220 MG TAB PO (07:58)
[2021-01-11] MEDS: Dexamethasone 4 MG TAB 6 MG PO (07:58)
--- NOTE | 2021-01-11 08:51 | CMPROGNOTE_ITS ---
- If Service Date Differs Date of service: 01/11/21 Time of Service: 17:15 Care Management Progress Note S/O: Jaison remains on Covid 19 precautions. Per report, he is on 1L O2, sat 92%. He is anxious to return home, and is keeping his family updated. He will continue to be monitored, and have his O2 weaned when appropriate. CM will continue to follow. A: Jaison is a 65 year old male admitted to [facility] on 01/06/21 with Afib with RVR, Covid 19. P: Jaison will discharge home with no new services anticipated at this time unless he requires oxygen. He will follow up with his community providers and plan of care and transport with family. CM will continue to support discharge needs.
--- NOTE | 2021-01-11 16:32 | W.PM.PROGNOT ---
Date of Service Date of service: 01/11/21 Time of Service: 16:32 Assessment and Plan Assessment and plan (1) COVID: Status: Acute Assessment and plan: With hypoxia. Currently on room air at rest, but does endorse orthopnea which may be more of a fluid issue. Will trial increased lasix tonight. S/p Actemra. Continue Decadron, Remdesivir. Check ambulatory pulse ox tomorrow. Continue supplementation with vitamin C, D, zinc. Continue atorvastatin, famotidine, (2) Atrial fibrillation with RVR: Status: Acute Assessment and plan: Rate has been controlled. No pauses reported. Continue Cardizem CD 240 mg daily; continue bisoprolol while monitoring for any more significant pauses. No plans to change the dosing for now if it was only 1 pause 2 days ago. Continue systemic enoxaparin with plans to convert to a DOAC on discharge. Will need a cardiac event recorder on discharge. (3) Essential hypertension: Status: Acute Assessment and plan: BPs adequately controlled on above meds. Continue heart healthy diet. (4) COPD (chronic obstructive pulmonary disease): Status: Chronic Assessment and plan: Not in obvious COPD exacerbation at this time. Continue Xopenex prn, home fluticasone, and Anoro Ellipta. Qualifiers: COPD type: chronic bronchitis Chronic bronchitis type: unspecified Qualified Code(s): J42 - Unspecified chronic bronchitis (5) History of bladder cancer: Status: Chronic Assessment and plan: F/u as outpatient (6) DVT prophylaxis: Status: Acute Assessment and plan: Fully anticoagulated with lovenox (7) Discharge planning issues: Status: Acute Assessment and plan: Full code Probable discharge home tomorrow. Subjective Subjective Interval history since last seen: The patient required 3L of O2 overnight while in bed, but is back on room air while sitting in a chair now. He admits to feeling short of breath while laying flat and feeling better sitting up. Cough productive of clear sputum, better. Denies dizziness, chest pain, nausea. Feels steady on his feet. Exam Narrative Exam Narrative: General: Pleasant middle-aged male who is sitting in a chair on RA, A&Ox3, appears dejected HEENT: EOMI, MMM Heart: Irregularly irregular rhythm, no m/r/g Lungs: Diminished breath sounds B Abdomen: soft, nontender, nondistended Extremities: trace edema at the ankles Objective Last Vital Signs Temp 36.5 C 01/11/21 12:07 Pulse 79 01/11/21 15:33 Resp 18 01/11/21 12:07 BP 95/65 L 01/11/21 12:07 Pulse Ox 93 01/11/21 12:07 PAWSS Have you Been Recently Intoxicated or Drunk Within the Last 30 days?: No Have you Ever Experienced Previous Episodes of Alcohol Withdrawal?: No Have you ever Experienced Withdrawal Seizures?: No Have you ever Experienced Delirium Tremens(DT)s?: No Have you ever undergone Alcohol Rehabilitation Treatment (i.e, inpt ot outpatient treatment programs)?: No Have you ever Experienced Blackouts?: No Have you ever Combined Alcohol with any other Substance of Abuse during the last 90 days?: No Positive Blood Alcohol level on Presentation? [PCS.BAL]: No Evidence of Increased Autonomic Activity (i.e. HR>120, tremor, sweating, agitation, nausea)?: No Result: 0
[2021-01-11] MEDS: Normal Saline Flush 10 ML SYR IVP (16:53)
[2021-01-11] MEDS: Furosemide 20 MG/2 ML VIAL IVP (16:53)
[2021-01-11] MEDS: Psyllium PKT 1 EACH PO (20:58)
[2021-01-11] MEDS: Senna TAB 1 TAB PO (21:01)
[2021-01-11] MEDS: Atorvastatin 40 MG TAB PO (21:01)
[2021-01-12] VITALS (7 sets, daily range): BP systolic 107–120; BP diastolic 69–81; PULSE 78–115; RESP 16–18; TEMP 36.1–36.4; O2SAT 92–95
[2021-01-12] MEDS: Enoxaparin 80 MG/0.8 ML SYR 75 MG SC (05:05)
[2021-01-12] MEDS: Nicotine 21 MG/24 HR PATCH TD (08:08)
[2021-01-12] MEDS: Cholecalciferol (Vitamin D3) 1,000 UNIT TAB 2000 UNITS PO (08:09)
[2021-01-12] MEDS: Bisoprolol 5 MG TAB 10 MG PO (08:09)
[2021-01-12] MEDS: Zinc Sulfate 220 MG TAB PO (08:10)
[2021-01-12] MEDS: Docusate Sodium 100 MG CAP PO (08:10)
[2021-01-12] MEDS: Famotidine 20 MG TAB PO (08:10)
[2021-01-12] MEDS: Ascorbic Acid 500 MG TAB 1000 MG PO (08:10)
[2021-01-12] MEDS: dilTIAZem CD 120 MG CAPCR 240 MG PO (08:10)
[2021-01-12] MEDS: Dexamethasone 4 MG TAB 6 MG PO (08:11)
[2021-01-12] MEDS: Normal Saline Flush 10 ML SYR IVP (08:11)
[2021-01-12] MEDS: Mometasone 220 MCG 14 DOSE INHALER 2 PUFF IH (08:12)
[2021-01-12] MEDS: Tiotropium/Olodaterol 10 PUFF INHALER 2 PUFF IH (08:12)
[2021-01-12] MEDS: Furosemide 20 MG TAB PO (09:59)
--- NOTE | 2021-01-12 10:20 | TELEFU_ITS ---
Date of service: 01/12/21 Time of Service: 10:20 Nutrition Note NOTE: 65yo COVID+ male with PMH significant for COPD, Afib, Hx of bladder cancer, tubular adenoma, HTN, DVT prophylaxis. Receiving vitamin C,D and zinc protocol. Current BMI (25.2kg/m2) indicates slightly overweight, however not concerning as a nutritional risk factor. Mr. Quezada is tolerating a Heart Healthy diet order with regular textures and his weight has been stable >1 year. He presents with no significant nutritional risk at this time. Will continue to monitor his intake, weight and nutritionally significant labs for any deterioration. Aidan Tre NDTR ? Despatching And Receiving Clerk Time Spent in Nutritional Counseling and Treatment: 10
--- NOTE | 2021-01-12 10:41 | CMDISCH_ITS ---
- If Service Date Differs Date of service: 01/12/21 Time of Service: 10:41 LACE Index Scoring Tool - Questions: Length of Stay (in days): 4 - 6 Acuity (Admit via E.D.?): Yes Comorbidities: Chronic Pulmonary Disease, Any Tumor E.D. Visits: 1 - Answers: Total Score: 13 Risk of Readmission: High Risk Care Management Discharge Reason for Hospitalization: Afib with RVR and Covid Discharge Plan: Jaison will be discharged home with no new services. He will follow up with his community providers and plan of care and transport with his daughter Casi. Patient/Family Education Needs: Review of discharge instructions, activity, fol low up plan, medications and limitations and discuss Ask Me Three
--- NOTE | 2021-01-12 10:45 | W.PM.DS.N ---
Date of service: 01/12/21 Time of Service: 10:45 DS: Diagnosis Discharge Diagnosis (1) COVID: Status: Acute (2) Hypoxia: Status: Resolved (3) Atrial fibrillation with RVR: Status: Resolved (4) Essential hypertension: Status: Chronic (5) COPD (chronic obstructive pulmonary disease): Status: Chronic (6) History of bladder cancer: Status: Chronic (7) Tobacco abuse: Discharge Plan Disposition Patient Disposition: HOME Condition: Serious Discharge Details Reason For Visit: Afib with RVR, Covid + Admit Date/Time: 01/06/21 15:48 Admit Provider: Paul Ayoub Attending Provider: Paul Ayoub Primary Care Provider: [facility] Course Hospital Course: Mr Conn is a 65 year old male with PMHx of COPD, not on oxygen, as well as hypertension, bladder cancer, tobacco abuse, who was not vaccinated against COVID-19, who was admitted to [facility] hospitalist service with COVID-19 with hypoxia as well as new diagnosis of Afib with RVR. He required 4L of O2 to saturate in the low 90s. He was admitted to medical surgical floor with initiation of dexamethasone, remdesivir and tocilizumab. He was initiated on PO lopressor, but required transition to bisoprolol and addition of cardizem in order to control his heart rate. He was being systemically anticoagulated with lovenox. There was some evidence of mild rate-dependent CHF, for which the patient received furosemide. His LVEF was preserved on the echo. He responded to therapy well, being weaned off to room air yesterday. He is being discharged home today to complete a steroid taper. He is being discharged home on eliquis. He is being ordered a a cardiac event recorder. He is being asked to self-isolate for 7 more days as we only noted improvement in his symptoms 3 days ago. He is being asked to stop smoking. He is being asked to return to the ED with O2 sats that drop below 90% and stay there on his pulse oxymeter that he is being discharged home with. Care for patient as well as completion of his discharge summary on day of discharge took 60 minutes. Home Meds and New Rx's Prescriptions: New ascorbic acid (vitamin C) [Vitamin C] 500 mg Tablet 1,000 mg PO BID Qty: 30 RF: 0 atorvastatin 40 mg Tablet 40 mg PO QPM Qty: 10 RF: 0 bisoprolol fumarate 5 mg Tablet 10 mg PO DAILY Qty: 30 RF: 0 cholecalciferol (vitamin D3) 25 mcg (1,000 unit) Tablet 2,000 unit PO DAILY Qty: 20 RF: 0 docusate sodium [Colace] 100 mg Capsule 100 mg PO TID Qty: 90 RF: 0 diltiazem HCl 120 mg Capsule,Extended Release 24hr 240 mg PO QAM Qty: 30 RF: 0 famotidine 20 mg Tablet 20 mg PO BID Qty: 10 RF: 0 levalbuterol tartrate 45 mcg/actuation Hfa Aerosol Inhaler 2 puff inhalation Q4H PRN PRN (Reason: shortness of breath or wheezing) Qty: 15 RF: 0 nicotine 21 mg/24 hr Patch 24 Hour 21 mg transdermal DAILY Qty: 28 RF: 0 sennosides [Senokot] 8.6 mg Tablet 8.6 mg PO HS Qty: 30 RF: 0 zinc sulfate [Zinc-220] 50 mg zinc (220 mg) Capsule 100 mg PO DAILY Qty: 14 RF: 0 prednisone 20 mg tablet See Rx Instructions .ROUTE .COMPLEX Qty: 4 RF: 0 Eliquis 5 mg tablet 5 mg PO BID Qty: 60 RF: 0 Metamucil 3.4 gram/5.4 gram powder 1 tbsp PO BID Qty: 660 RF: 0 furosemide 20 mg tablet 20 mg PO BID Qty: 14 RF: 0 Continued amlodipine 10 mg tablet 10 mg PO DAILY Qty: 90 RF: 3 nicotine (polacrilex) [Nicorette] 4 MG gum 1 piece of gum PO Q2H PRN RF: 0 ibuprofen 200 MG tablet 4 tab PO PRN RF: 0 Anoro Ellipta 62.5-25 mcg/actuation blister with device 1 inh IH Q24H Qty: 60 RF: 11 Flovent HFA 110 mcg/actuation HFA aerosol inhaler 2 puff IH BID Qty: 12 RF: 5 acetaminophen [Tylenol] 325 MG tablet 650 mg PO Q6H PRN PRNQty: 30 RF: 0 Discontinued albuterol sulfate [ProAir HFA] 90 mcg/actuation HFA aerosol inhaler 2 puff IH Q6H PRN (Reason: shortness of breath or wheezing) Qty: 8.5 RF: 2 Discharge Instructions Instructions: Diltiazem (By mouth), Bisoprolol (By mouth), Apixaban (By mouth), A-fib (Atrial Fibrillation) (DC), Low-Sodium Diet (DC), COVID-19 (Coronavirus Disease 2019) (DC) Additional Instructions: You must self-isolate for 7 more days. Check your pulse oxymetry several times a day at home. Return to [facility] ED if you are noticing numbers <90% that stay there. Return to the hospital with any fever, bleeding, chest pain, worsening shortness of breath. Restrict your sodium intake to 2 grams of sodium per day (2000 mg). You must stop smoking. Referrals: Tiera Blackwood NP [Primary Care Provider] - Activity:: Activity as Tolerated Equipment/Supplies:: pulse oxymeter Diet:: Low Sodium Discharge Orders Discharge Orders: Discharge Order (Routine); Ordered 01/12/21 Ordered By: Brianne Hernandez Other Ambulatory Orders: Cardiac Event Recorder (Routine) Timeframe: 1 Day Facility: [facility] - Location: Respiratory Therapy Ordered By: Brianne Hernandez DS: Summary Time Spent with Patient providing and/or coordinating discharge services: Greater than 30 minutes Status at Discharge Functional status at discharge: independent ambulation Overall status at discharge: patient is progressing back to baseline Mental Status: mental status grossly normal Speech and Movement: speech and movement normal Mood: congruent mood Affect: normal affect Exam Narrative Exam Narrative: Exam on day of discharge is being done over the phone. The patient has fluent speech without evidence of cough, dyspnea, tachypnea. Psych Mental Status: mental status grossly normal Speech and Movement: speech and movement normal Mood: congruent mood Affect: normal affect DS: Data Vitals/I&O Vitals and I&O: Vital Signs Temperature 36.1 C L 01/12/21 08:25 Temperature Source Tympanic 01/12/21 08:25 Pulse 81 01/12/21 08:25 Pulse Rhythm Irregular 01/12/21 08:30 Pulse 102 H 01/06/21 17:16 Respiratory Rate 16 01/12/21 08:25 Respiratory Effort Non-Labored 01/12/21 08:30 Respiratory Depth Normal 01/12/21 08:30 Respiratory Pattern Normal 01/12/21 08:30 Blood Pressure 111/70 01/12/21 08:25 Blood Pressure Mean 80 01/06/21 17:16 Blood Pressure Position Supine 01/06/21 13:07 Pulse Oximetry 93 01/12/21 10:14 Oxygen Delivery Method Room Air 01/12/21 10:14 Oxygen Flow Rate 0 01/12/21 10:14 Pain Level 0 01/12/21 08:25 Comment 01/11/21 17:48 Intake & Output 01/11/21 01/11/21 01/12/21 11:59 23:59 11:59 Intake Total 250 / 800 550 / 800 250 / 250 Balance 250 / 800 550 / 800 250 / 250 Intake: Oral 250 / 800 550 / 800 250 / 250 Other: Urine Color Yellow Yellow Urine Appearance Clear Comment uses toilet independently Patient is independent to the bathroom at this time. Stool Size Moderate Stool Characteristics Brown Voiding Methods Toilet Toilet Toilet Data Completed and Pending Completed studies during hospitalization [Text1]: CTA chest: 1. No evidence of acute pulmonary emboli. No evidence of pulmonary infarction.No pleural effusions. 2. Extensive bilateral interstitial and partially confluent infiltrates as described above. No associated pleural effusions nor intrathoracic adenopathy. Recommend Covid testing. 3. No significant osseous lesions Echo: Technically difficult study. The patient was in atrial fibrillation at an uncontrolled rate throughout Normal left ventricular wall thickness and chamber size. Estimated ejection fraction is 55 to 60%. Wall motion appeared normal The right ventricle appears mildly dilated with preserved systolic function Both atria are normal in size There is no structural or hemodynamically significant valvular disease Right ventricular systolic pressure could not be estimated [facility] Active Problem List (Updated 01/12/21 @ 10:50 by Brianne Hernandez MD) Discharge planning issues (Acute) DVT prophylaxis (Acute) COVID (Acute) Essential hypertension (Chronic) History of bladder cancer (Chronic 01/07/16) Nicotine dependence (Acute) Tubular adenoma (Acute ~11/2019) COPD (chronic obstructive pulmonary disease) (Chronic) Medical History (Updated 01/12/21 @ 10:50 by Brianne Hernandez MD) Hypertension Inguinal hernia without obstruction or gangrene (07/04/17) Left nasal polyps (03/17/16) Tobacco abuse Surgical History Bilateral Inguinal Hernia Repair Colonoscopy - IV Sedation 2015-hyperplastic polyp Family History Father , age 89 Essential hypertension Daughter Depression Social History Smoking/Tobacco Use Status: Former Tobacco Use Quit Date: 02/05/17 Tobacco: How many years used: 20 Quit status: has quit before (2018) Smoking risk assessment performed?: Yes Alcohol Intake: current Drug use: Never Substance use type: does not use Adopted: No Foster care: No Household members: spouse Housing: house Communication Needs: None Do you need help understanding health information?: Rarely 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 Pets and animals: Yes Pets and animals: cat(s) and dog(s) Sexually active: No Do you think of yourself as: straight/heterosexual Current gender identity: male What is your relationship status?: How often do you talk on the phone with friends or family?: three or more times per week How often do you get together with friends or relatives?: once per week How often do you attend shinto or yazdanism services?: decline to answer Do you belong to any clubs or organized social groups?: no Panel score (0-1 are the most socially isolated patients): 2 What type of physical activity do you participate in: none Isabel/Jainism: Baptist Special isabel needs: No Seatbelt use: never Helmet use: No Drive intox or ride w/intox driver lifter of sanitation truck: No Working smoke detector in home: No Fire extinguisher in home: Yes Do you feel safe at home: Yes Do you feel safe in your relationship?: Yes
--- NOTE | 2021-02-14 15:27 | W.CARDEVENT ---
Date of service: 02/14/21 Time of Service: 15:27 Cardiac Event Recorder Referring Provider:: Paul Ayoub Indications:: Atrial fibrillation Cardiac Event Note: This is a 30-day cardiac event monitor, ordered for atrial fibrillation Atrial fibrillation was present throughout with an average heart rate of 93. Maximum was 123, minimum 66 No patient symptoms were reported
== END 2021-01-12 12:40 | disposition home or self-care (01) | DRG 177 ==
LOC: ER 15:39 → MS 17:22
PROVIDERS: Internal Medicine; Nurse Practitioner Acute Care; Admitting Provider Internal Medicine; Emergency Provider Physician Assistant; PCP Nurse Practitioner; Visit Provider Internal Medicine
DX: U07.1 COVID-19 (principal); J12.82 Pneumonia due to coronavirus disease 2019; J44.0 Chronic obstructive pulmonary disease with (acute) lower respiratory infection; I48.91 Unspecified atrial fibrillation; R09.02 Hypoxemia; I10 Essential (primary) hypertension; F17.210 Nicotine dependence, cigarettes, uncomplicated; Z85.51 Personal history of malignant neoplasm of bladder
CPT/HCPCS: 36415; 71275; 80048; 80053; 82550; 84145; 85652; 86704; 86706; 86803; 86850; 86900; 86901; 87040; 87340; 87389; 87635; 93005; 93270; 93306; 94618; 96361; 96365; 96375; 96376; 99291; 81003; 81015; 82728; 83605; 83615; 83735; 83880; 84443; 84484; 85025; 85379; 85610; 85730; 86140; 93010; 94664; 94667; 99223; 99231; 99232; 99239; J0696; J1100; J1650; J1941; J3262; J3490; J8540

== ENCOUNTER → 2021-02-08 08:49 | Outpatient (BNVA) | payer MEDICARE, SELFPAY | PROVIDERS: PCP Nurse Practitioner; Referring Provider Nurse Practitioner; Visit Provider Urology | DX: C67.9 Malignant neoplasm of bladder, unspecified (principal); Z86.16 Personal history of COVID-19 | CPT/HCPCS: 52000; 81003 ==

== ENCOUNTER 2021-02-14 15:27 | Outpatient (CLI) | payer MEDICARE, SELFPAY | END 2021-02-14 15:28 | LOC: CARDO 02-15 11:44 | PROVIDERS: PCP Nurse Practitioner; Referring Provider Internal Medicine; Visit Provider Internal Medicine Cardiovascular Disease | DX: I48.91 Unspecified atrial fibrillation (principal) | CPT/HCPCS: 93272 ==

== ENCOUNTER 2021-09-26 03:45 | Outpatient (CLI) | payer MEDICARE, SELFPAY ==
[2021-09-26 13:15] LABS: Anion Gap 8.3 mmol/L (3-11); BUN 26 mg/dL (7-18); CO2 27.7 mmol/L (21.0-32.0); CREATININE 0.8 mg/dL (0.70-1.30); Calcium 8.8 mg/dL (8.5-10.1); Calculated LDL 48 mg/dL (<100); Chloride 105 mmol/L (98-107); Cholesterol 115 mg/dL (<200); Glucose 96 mg/dL (74-106); HDL Cholesterol 48 mg/dL (40-60); Potassium 4.3 mmol/L (3.5-5.1); Sodium 141 mmol/L (136-145); Triglyceride 98 mg/dL (<150)
[2021-09-26 14:45] LABS: Hemoglobin A1C 5.9 % (<5.7)
== END 2021-09-26 03:46 | disposition home or self-care (01) ==
LOC: LOS 03:45
PROVIDERS: PCP Nurse Practitioner; Visit Provider Nurse Practitioner
DX: R73.09 Other abnormal glucose (principal); I10 Essential (primary) hypertension
CPT/HCPCS: 36415; 80048; 80061; 83036

== ENCOUNTER 2021-10-07 18:38 | Outpatient (CLI) | payer MEDICARE, SELFPAY | END 2021-10-07 18:39 | disposition home or self-care (01) | LOC: DI.CM 18:39 | PROVIDERS: PCP Nurse Practitioner; Visit Provider Nurse Practitioner Family | DX: R69 Illness, unspecified (principal) | CPT/HCPCS: 93010 ==

== ENCOUNTER 2022-01-01 09:42 | Emergency (ER) | payer MEDICARE, SELFPAY ==
[2022-01-01 09:55] VITALS: BP 135/68; PULSE 56; RESP 18; TEMP 37; O2SAT 96
--- NOTE | 2022-01-01 10:40 | ED.GENADUL_ITS ---
Discharge Plan Disposition Patient Disposition: Home Condition: Improving Discharge Details Clinical Impression: Odontalgia Primary Care Provider: Lisbet Viera ED Provider: Mateo Garcia Home Meds and New Rx's Prescriptions: New penicillin V potassium 500 mg tablet 500 mg PO TID 10 Days Qty: 30 0RF Continued Eliquis 5 mg tablet 5 mg PO BID Qty: 180 4RF atorvastatin 40 mg tablet 40 mg PO QPM Qty: 90 4RF nicotine (polacrilex) [Nicorette] 4 MG gum 1 piece of gum PO Q2H PRN Anoro Ellipta 62.5-25 mcg/actuation blister with device 1 inh IH Q24H Qty: 60 11RF fluticasone propionate [Flovent HFA] 110 mcg/actuation HFA aerosol inhaler 2 puff IH BID Qty: 12 5RF diltiazem HCl 120 mg capsule,extended release 24hr 240 mg PO QAM Qty: 90 4RF bisoprolol fumarate 5 mg tablet 10 mg PO DAILY Qty: 90 4RF amlodipine 10 mg tablet 10 mg PO DAILY Qty: 90 3RF acetaminophen [Tylenol] 325 MG tablet 650 mg PO Q6H PRN PRNQty: 30 0RF ascorbic acid (vitamin C) [Vitamin C] 500 mg Tablet 1,000 mg PO BID Qty: 30 0RF cholecalciferol (vitamin D3) 25 mcg (1,000 unit) Tablet 2,000 unit PO DAILY Qty: 20 0RF levalbuterol tartrate 45 mcg/actuation Hfa Aerosol Inhaler 2 puff inhalation Q4H PRN PRN (Reason: shortness of breath or wheezing) Qty: 15 0RF zinc sulfate [Zinc-220] 50 mg zinc (220 mg) Capsule 100 mg PO DAILY Qty: 14 0RF Discharge Instructions Instructions: Toothache (ED) Additional Instructions: Please follow-up with dentist for recheck. Take penicillin as prescribed until finished. May continue salt water gargles and topical treatment. Tylenol if needed for pain. Return to the ER for any acute concerns. Discharge Data Discharge Date/Time-TO BE ENTERED AT DEPARTURE: 01/01/22 11:17 Medical Decision Making 66-year-old male with apical pain and swelling over right upper lateral incisor for days time. He is afebrile, well-appearing, no evidence of abscess. I will place him on a course of penicillin. He will follow-up with dentistry for recheck. He is stable for discharge. Sign Out No HPI General Mode of arrival: ambulatory . Date/Time Provider Initiated Documentation: 01/01/22 10:01 . Limitations to Documentation: no limitations . Information obtained by: patient . History of Present Illness 66 year old M presents to the emergency department with the chief complaint of Right upper d ental pain, described as moderate, Quality is described as dull and constant, and is localized to the face and right. Patient started experiencing this day(s) and it has been constant. No relieving factors improve symptom(s), No exacerbating factors reported . Patient notes denies chest pain, cough, fever/chills, headaches, loss of appetite and nausea/vomiting. Patient did receive the following treatments prior to arrival, none Related Data Home Medications Medication Instructions Recorded Confirmed nicotine (polacrilex) 4 mg gum 1 piece of gum PO Q2H PRN 06/12/12 10/03/21 (Nicorette) acetaminophen 325 mg tablet 650 mg PO Q6H PRN PRN #30 tabs 08/09/10/03/21 (Tylenol) ascorbic acid (vitamin C) 500 mg 1,000 mg PO BID #30 tabs 01/12/21 10/03/21 tablet (Vitamin C) cholecalciferol (vitamin D3) 25 2,000 unit PO DAILY #20 tabs 01/12/21 10/03/21 mcg (1,000 unit) tablet levalbuterol tartrate 45 2 puff inhalation Q4H PRN PRN 01/12/21 10/03/21 mcg/actuation aerosol inhaler shortness of breath or wheezing #15 grams zinc sulfate 50 mg zinc (220 mg) 100 mg PO DAILY #14 caps 01/12/21 10/03/21 capsule (Zinc-220) apixaban 5 mg tablet (Eliquis) 5 mg PO BID #180 tabs 01/25/21 10/03/21 atorvastatin 40 mg tablet 40 mg PO QPM #90 tabs 01/25/21 10/03/21 umeclidinium 62.5 mcg-vilanterol 1 inh inhalation Q24H #60 ea 03/01/21 10/03/21 25 mcg/actuation powdr for inhalation (Anoro Ellipta) fluticasone propionate 110 2 puff inhalation BID #12 grams 05/20/21 10/03/21 mcg/actuation HFA aerosol inhaler (Flovent HFA) bisoprolol fumarate 5 mg tablet 10 mg PO DAILY #90 tabs 08/15/21 10/03/21 diltiazem HCl 120 mg 240 mg PO QAM #90 caps 08/15/21 10/03/21 capsule,extended release 24 hr amlodipine 10 mg tablet 10 mg PO DAILY #90 tabs 11/11/21 penicillin V potassium 500 mg 500 mg PO TID 10 days #30 tabs 01/01/22 tablet Previous Rx's Medication Instructions Recorded acetaminophen 325 mg tablet 650 mg PO Q6H PRN PRN #30 tabs 08/09/17 (Tylenol) ascorbic acid (vitamin C) 500 mg 1,000 mg PO BID #30 tabs 01/12/21 tablet (Vitamin C) cholecalciferol (vitamin D3) 25 2,000 unit PO DAILY #20 tabs 01/12/21 mcg (1,000 unit) tablet levalbuterol tartrate 45 2 puff inhalation Q4H PRN PRN 01/12/21 mcg/actuation aerosol inhaler shortness of breath or wheezing #15 grams zinc sulfate 50 mg zinc (220 mg) 100 mg PO DAILY #14 caps 01/12/21 capsule (Zinc-220) apixaban 5 mg tablet (Eliquis) 5 mg PO BID #180 tabs 01/25/21 atorvastatin 40 mg tablet 40 mg PO QPM #90 tabs 01/25/21 umeclidinium 62.5 mcg-vilanterol 1 inh inhalation Q24H #60 ea 03/01/21 25 mcg/actuation powdr for inhalation (Anoro Ellipta) fluticasone propionate 110 2 puff inhalation BID #12 grams 05/20/21 mcg/actuation HFA aerosol inhaler (Flovent HFA) bisoprolol fumarate 5 mg tablet 10 mg PO DAILY #90 tabs 08/15/21 diltiazem HCl 120 mg 240 mg PO QAM #90 caps 08/15/21 capsule,extended release 24 hr amlodipine 10 mg tablet 10 mg PO DAILY #90 tabs 11/11/21 penicillin V potassium 500 mg 500 mg PO TID 10 days #30 tabs 01/01/22 tablet Allergies Allergy/AdvReac Type Severity Reaction Status Date / Time lisinopril AdvReac Severe Hyperkalemi Verified 10/03/21 12:54 a General Stated Complaint: DentalOral BARBARA: 4 Review of Systems Narrative: No change to voice, no difficulty swallowing. No fever or neck pain. PFSH All Active Problems (Updated 01/01/22 @ 10:42 by Mateo Garcia MD) Odontalgia (Acute) Essential hypertension (Chronic) Nicotine dependence (Acute) nicorettes smokes 1 PPD x 20 years Tubular adenoma (Acute ~11/2019) 12/2019- Dr. Devonte Nicholson, TA x2, repeat colo 3 years COPD (chronic obstructive pulmonary disease) (Chronic) Medical History COVID History of bladder cancer (01/07/16) Onset age 39- diagnosed early, 01/2020- recurrence, seeing urology Q6 months 2021- seeing once a year Inguinal hernia without obstruction or gangrene (07/04/17) Left nasal polyps (03/17/16) Surgical History Bilateral Inguinal Hernia Repair Colonoscopy - IV Sedation 2014-hyperplastic polyp Family History Father , age 89 Essential hypertension Daughter Depression Social History Smoking/Tobacco Use Status: Current-Occasional Tobacco Type: cigarettes Tobacco: How many years used: 20 Quit status: has quit before (2018) Second Hand Exposure: Yes Smoking risk assessment performed?: Yes Alcohol Intake: never Drug use: Never Substance use type: does not use Adopted: No Caregiver/Support person: No Foster care: No Household members: spouse Housing: house Communication Needs: Corrective Lenses Do you need help understanding health information?: Never 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 Pets and animals: Yes Pets and animals: dog(s) Sexually active: No Do you think of yourself as: straight/heterosexual Current gender identity: male What is your relationship status?: How often do you talk on the phone with friends or family?: three or more times per week How often do you get together with friends or relatives?: once per week How often do you attend orthodox or taoist services?: decline to answer Do you belong to any clubs or organized social groups?: no Panel score (0-1 are the most socially isolated patients): 2 What type of physical activity do you participate in: none Isabel/Confucianism: Sikh Special isabel needs: No Seatbelt use: never Helmet use: No Drive intox or ride w/intox mixer 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 Pleasant, well groomed, interactive. HEAD: Normocephalic, atraumatic ENT: Mucous membranes moist, oropharynx with discrete gum swelling and tenderness right upper lateral incisor, External ear exam unremarkable EYES: PERRL, EOMI NECK: Full ROM, no YARON, no menigismus CHEST/RESP: No respiratory distress Neuro: Grossly normal neurologic exam, conversant, interactive. Psych: Speech fluent, thoughts congruent, affect normal Course Vital Signs Vital signs: Vital Signs Temperature 37.0 C 01/01/22 09:55 Pulse 56 L 01/01/22 09:55 Respiratory Rate 18 01/01/22 09:55 Blood Pressure 135/68 01/01/22 09:55 Pulse Oximetry 96 01/01/22 09:55 Temperature 37.0 C 01/01/22 09:55 Temperature Source Temporal Artery Scan 01/01/22 09:55 Pulse 56 L 01/01/22 09:55 Respiratory Rate 18 01/01/22 09:55 Blood Pressure 135/68 01/01/22 09:55 Blood Pressure Position Sitting 01/01/22 09:55 Pulse Oximetry 96 01/01/22 09:55 Oxygen Delivery Method Room Air 01/01/22 09:55 Oxygen Flow Rate 0 01/01/22 09:55
== END 2022-01-01 11:17 | disposition home or self-care (01) ==
PROVIDERS: Emergency Provider Emergency Medicine; PCP Nurse Practitioner Family
DX: R68.84 Jaw pain (principal)
CPT/HCPCS: 99283

== ENCOUNTER → 2022-02-07 08:38 | Outpatient (BNVA) | payer MEDICARE, SELFPAY | PROVIDERS: PCP Nurse Practitioner Family; Referring Provider Nurse Practitioner Family; Visit Provider Urology | DX: Z08 Encounter for follow-up examination after completed treatment for malignant neoplasm (principal); Z85.51 Personal history of malignant neoplasm of bladder | CPT/HCPCS: 52000; 81003 ==

== ENCOUNTER 2022-03-27 11:38 | Emergency (ER) | payer MEDICARE, SELFPAY ==
[2022-03-27 11:42] VITALS: BP 137/78; PULSE 70; RESP 16; TEMP 35.9; O2SAT 94
--- NOTE | 2022-03-27 12:15 | ED.GENADUL_ITS ---
Discharge Plan Disposition Patient Disposition: Home Condition: Stable Discharge Details Clinical Impression: Dental abscess, COPD (chronic obstructive pulmonary disease), Bronchitis Primary Care Provider: Lisbet Viera ED Provider: Leighton Lindsay Home Meds and New Rx's Prescriptions: New amoxicillin-pot clavulanate 875-125 mg tablet 1 tab PO Q12H Qty: 20 0RF methylprednisolone [Medrol (Víctor)] 4 mg tablets,dose pack See Rx Instructions .ROUTE .COMPLEX Qty: 21 0RF Rx Instructions: orally per package directions Continued atorvastatin 40 mg tablet 40 mg PO QPM Qty: 90 4RF nicotine (polacrilex) [Nicorette] 4 MG gum 1 piece of gum PO Q2H PRN fluticasone propionate [Flovent HFA] 110 mcg/actuation HFA aerosol inhaler 2 puff IH BID Qty: 12 5RF diltiazem HCl 120 mg capsule,extended release 24hr 240 mg PO QAM Qty: 90 4RF bisoprolol fumarate 5 mg tablet 10 mg PO DAILY Qty: 90 4RF amlodipine 10 mg tablet 10 mg PO DAILY Qty: 90 3RF Eliquis 5 mg tablet 5 mg PO BID Qty: 180 4RF Anoro Ellipta 62.5-25 mcg/actuation blister with device 1 inh IH Q24H Qty: 60 11RF acetaminophen [Tylenol] 325 MG tablet 650 mg PO Q6H PRN PRNQty: 30 0RF ascorbic acid (vitamin C) [Vitamin C] 500 mg Tablet 1,000 mg PO BID Qty: 30 0RF cholecalciferol (vitamin D3) 25 mcg (1,000 unit) Tablet 2,000 unit PO DAILY Qty: 20 0RF levalbuterol tartrate 45 mcg/actuation Hfa Aerosol Inhaler 2 puff inhalation Q4H PRN PRN (Reason: shortness of breath or wheezing) Qty: 15 0RF zinc sulfate [Zinc-220] 50 mg zinc (220 mg) Capsule 100 mg PO DAILY Qty: 14 0RF Discharge Instructions Instructions: Dental Abscess (ED), Acute Bronchitis (ED), COPD (Chronic Obstructive Pulmonary Disease) (ED) Additional Instructions: Please follow-up with dentist for your dental infection. Take antibiotics as prescribed which will help with the infection but definitive care needs to be performed by dental provider. If you develop any new or significant worsening of symptoms, difficulty breathing, inability to swallow or further concerns return to the emergency department for reassessment At this time I feel that you have bronchitis and lower likelihood of pneumonia but the antibiotic you are given we will also treat respiratory infections. Continue to take your medication as prescribed and follow-up with your primary care provider if not improving otherwise return the emergency department for any significant change. Referrals: Lisbet Viera NP [Primary Care Provider] - Discharge Data Discharge Date/Time-TO BE ENTERED AT DEPARTURE: 03/27/22 12:56 Medical Decision Making Cough x1 month no worsening or improvement, history of COPD, diminished but clear lung sounds. No fever or chills. Suggestive of bronchitis secondary to COPD and initial viral illness. Will prescribe steroids and give single dose of Decadron in ER. Patient also does have signs of dental infection to tooth #2. No drainable abscess is noted. No signs of deep neck space infection ( Retropharyngeal abscess, Cooper's angina, Parapharyngeal space infection, Peritonsillar Abscess ([employer])) or Epiglottitis. Pt non toxic and stable. Will place patient on Augmentin and encourage follow-up with dental provider for definitive care. After discussion of diagnosis and plan of care patient has no further needs, questions, or concerns and states clear understanding to return to the emergency department for any worsening symptoms. This documentation was generated using [employer] dictation system, please disregard any oddities of phrase or misspellings. HPI General Mode of arrival: ambulatory . Date/Time Provider Initiated Documentation: 03/27/22 11:40 . Limitations to Documentation: no limitations . Information obtained by: patient and RN notes reviewed . History of Present Illness 66 year old M presents to the emergency department with the chief complaint of Facial swelling and cough, described as moderate, with intensity rated at 7. Quality is described as aching, and is localized to the face. Patient reports no radiation. Patient started experiencing this day(s) (2) and it has been constant. No relieving factors improve symptom(s), No exacerbating factors reported . Patient notes cough. Patient did receive the following treatments prior to arrival, NSAID Related Data Home Medications Medication Instructions Recorded Confirmed nicotine (polacrilex) 4 mg gum 1 piece of gum PO Q2H PRN 06/12/12 03/27/22 (Nicorette) acetaminophen 325 mg tablet 650 mg PO Q6H PRN PRN #30 tabs 08/09/17 03/27/22 (Tylenol) ascorbic acid (vitamin C) 500 mg 1,000 mg PO BID #30 tabs 01/12/21 03/27/22 tablet (Vitamin C) cholecalciferol (vitamin D3) 25 2,000 unit PO DAILY #20 tabs 01/12/21 03/27/22 mcg (1,000 unit) tablet levalbuterol tartrate 45 2 puff inhalation Q4H PRN PRN 01/12/21 03/27/22 mcg/actuation aerosol inhaler shortness of breath or wheezing #15 grams zinc sulfate 50 mg zinc (220 mg) 100 mg PO DAILY #14 caps 01/12/21 03/27/22 capsule (Zinc-220) atorvastatin 40 mg tablet 40 mg PO QPM #90 tabs 01/25/21 03/27/22 fluticasone propionate 110 2 puff inhalation BID #12 grams 05/20/21 03/27/22 mcg/actuation HFA aerosol inhaler (Flovent HFA) bisoprolol fumarate 5 mg tablet 10 mg PO DAILY #90 tabs 08/15/21 03/27/22 diltiazem HCl 120 mg 240 mg PO QAM #90 caps 08/15/21 03/27/22 capsule,extended release 24 hr amlodipine 10 mg tablet 10 mg PO DAILY #90 tabs 11/11/21 03/27/22 apixaban 5 mg tablet (Eliquis) 5 mg PO BID #180 tabs 02/22/22 03/27/22 umeclidinium 62.5 mcg-vilanterol 1 inh inhalation Q24H #60 ea 02/27/22 03/27/22 25 mcg/actuation powdr for inhalation (Anoro Ellipta) amoxicillin 875 mg-potassium 1 tab PO Q12H #20 tabs 03/27/22 clavulanate 125 mg tablet methylprednisolone 4 mg tablets in See Rx Instructions PO .COMPLEX 03/27/22 a dose pack (Medrol (Víctor)) #21 dose pk Previous Rx's Medication Instructions Recorded acetaminophen 325 mg tablet 650 mg PO Q6H PRN PRN #30 tabs 08/09/17 (Tylenol) ascorbic acid (vitamin C) 500 mg 1,000 mg PO BID #30 tabs 12/08/21 tablet (Vitamin C) cholecalciferol (vitamin D3) 25 2,000 unit PO DAILY #20 tabs 01/12/21 mcg (1,000 unit) tablet levalbuterol tartrate 45 2 puff inhalation Q4H PRN PRN 01/12/21 mcg/actuation aerosol inhaler shortness of breath or wheezing #15 grams zinc sulfate 50 mg zinc (220 mg) 100 mg PO DAILY #14 caps 01/12/21 capsule (Zinc-220) atorvastatin 40 mg tablet 40 mg PO QPM #90 tabs 01/25/21 fluticasone propionate 110 2 puff inhalation BID #12 grams 05/20/21 mcg/actuation HFA aerosol inhaler (Flovent HFA) bisoprolol fumarate 5 mg tablet 10 mg PO DAILY #90 tabs 08/15/21 diltiazem HCl 120 mg 240 mg PO QAM #90 caps 08/15/21 capsule,extended release 24 hr amlodipine 10 mg tablet 10 mg PO DAILY #90 tabs 11/11/21 apixaban 5 mg tablet (Eliquis) 5 mg PO BID #180 tabs 02/22/22 umeclidinium 62.5 mcg-vilanterol 1 inh inhalation Q24H #60 ea 02/27/22 25 mcg/actuation powdr for inhalation (Anoro Ellipta) amoxicillin 875 mg-potassium 1 tab PO Q12H #20 tabs 03/27/22 clavulanate 125 mg tablet methylprednisolone 4 mg tablets in See Rx Instructions PO .COMPLEX 03/27/22 a dose pack (Medrol (Víctor)) #21 dose pk Allergies Allergy/AdvReac Type Severity Reaction Status Date / Time lisinopril AdvReac Severe Hyperkalemi Verified 03/27/22 11:46 a General Stated Complaint: RespSymp BARBARA: 4 Review of Systems Constitutional Constitutional: Denies chills and Denies fever(s) ENT Ears, Nose, Mouth, and Throat: Reports as per HPI, Denies change in voice, Reports dental pain, Denies dysphagia, Denies throat swelling and Denies tongue swelling Cardiovascular Cardiovascular: Denies chest pain and Denies dyspnea Respiratory Respiratory: Reports cough, Denies dyspnea, Denies stridor and Denies wheezing Gastrointestinal Gastrointestinal: Denies abdominal pain, Denies dysphagia, Denies nausea and Denies vomiting Integumentary/Breasts Skin/Breast: Denies rash Allergic/Immunologic Allergic/Immunologic: Denies throat swelling, Denies tongue swelling and Denies wheezing PFSH All Active Problems (Updated 03/27/22 @ 12:27 by Leighton Lindsay NP) Dental abscess (Acute) Bronchitis (Acute) Essential hypertension (Chronic) Nicotine dependence (Acute) nicorettes smokes 1 PPD x 20 years Tubular adenoma (Acute ~11/2019) 12/2019- Dr. Devonte Nicholson, TA x2, repeat colo 3 years COPD (chronic obstructive pulmonary disease) (Chronic) Medical History COVID History of bladder cancer (01/07/16) Onset age 39- diagnosed early, 01/2020- recurrence, seeing urology Q6 months 2021- seeing once a year Inguinal hernia without obstruction or gangrene (07/04/17) Left nasal polyps (03/17/16) Surgical History Bilateral Inguinal Hernia Repair Colonoscopy - IV Sedation 2014-hyperplastic polyp Family History Father , age 89 Essential hypertension Daughter Depression Social History Smoking/Tobacco Use Status: Current-Occasional Tobacco Type: cigarettes Tobacco: How many years used: 20 Quit status: has quit before (2018) Second Hand Exposure: Yes Smoking risk assessment performed?: Yes Alcohol Intake: never Drug use: Never Substance use type: does not use Adopted: No Caregiver/Support person: No Foster care: No Household members: spouse Housing: house Communication Needs: Corrective Lenses Do you need help understanding health information?: Never 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 Pets and animals: Yes Pets and animals: dog(s) Sexually active: No Do you think of yourself as: straight/heterosexual Current gender identity: male What is your relationship status?: How often do you talk on the phone with friends or family?: three or more times per week How often do you get together with friends or relatives?: once per week How often do you attend nondenominational or voodoo services?: decline to answer Do you belong to any clubs or organized social groups?: no Panel score (0-1 are the most socially isolated patients): 2 What type of physical activity do you participate in: none Isabel/Buddhism: Adventism Special isabel needs: No Seatbelt use: never Helmet use: No Drive intox or ride w/intox wagon driver: No Working smoke detector in home: No Fire extinguisher in home: Yes Do you feel safe at home: Yes Do you feel safe in your relationship?: Yes Exam Const General: cooperative Orientation: alert, awake and oriented x3 Limitations: mental status not altered [facility] Head: normal to inspection, normocephalic and atraumatic Ears: hearing grossly normal bilaterally, normal mastoids bilaterally and no periauricular adenopathy General nose exam: external nose normal Mouth: oropharynx normal, no drooling, no muffled voice, normal tongue and no trismus Teeth and gingiva: caries, poor dentition and other (Partially fractured tooth #2 with erythema surrounding the base of the tooth) Throat: posterior oropharynx normal, tonsils normal and uvula midline Eyes General: appearance normal, both eyes and all related structures Pupils: PERRL Neck Neck: normal visual inspection, full ROM, no lymphadenopathy, no meningeal signs, trachea midline, supple, no anterior neck swelling and no midline deformity Resp Effort & Inspection: normal respiratory effort and able to speak in complete sentences Auscultation: clear to auscultation bilaterally and diminished lung sounds Cardio Rate: regular rate Rhythm: regular rhythm Heart Sounds: S1 normal and S2 normal Course Vital Signs Vital signs: Vital Signs Temperature 35.9 C L 03/27/22 11:42 Pulse 70 03/27/22 11:42 Respiratory Rate 16 03/27/22 11:42 Blood Pressure 137/78 03/27/22 11:42 Pulse Oximetry 94 03/27/22 11:42 Temperature 35.9 C L 03/27/22 11:42 Temperature Source Tympanic 03/27/22 11:42 Pulse 70 03/27/22 11:42 Respiratory Rate 16 03/27/22 11:42 Respiratory Effort Normal 03/27/22 11:45 Respiratory Depth Normal 03/27/22 11:45 Blood Pressure 137/78 03/27/22 11:42 Blood Pressure Position Sitting 03/27/22 11:42 Pulse Oximetry 94 03/27/22 11:42 Oxygen Delivery Method Room Air 03/27/22 11:42 Oxygen Flow Rate 0 03/27/22 11:42
[2022-03-27] MEDS: Amoxicillin 875/Clav. 125 TAB PO (12:26)
[2022-03-27] MEDS: Dexamethasone 10 MG/ML VIAL PO (12:26)
[2022-03-27 12:55] VITALS: BP 139/71; PULSE 61; RESP 18; TEMP 36.8; O2SAT 92
== END 2022-03-27 12:56 | disposition home or self-care (01) ==
PROVIDERS: Emergency Provider Nurse Practitioner Family; PCP Nurse Practitioner Family
DX: J44.9 Chronic obstructive pulmonary disease, unspecified (principal); K04.7 Periapical abscess without sinus; F17.210 Nicotine dependence, cigarettes, uncomplicated; Z79.51 Long term (current) use of inhaled steroids; Z86.16 Personal history of COVID-19
CPT/HCPCS: 99283; 99284; J1100

== ENCOUNTER 2022-05-01 13:53 | Outpatient (CLI) | payer MEDICARE, SELFPAY ==
--- NOTE | 2022-05-01 13:45 | RT.EKG_ITS ---
APPROVED REPORT Exam: Resting ECG Reason for Exam: Afib Patient Location: O HR:49 bpm ECG Measurements Heart Rate 49 AXIS PA 161 P 43 QRSd 94 QRS 58 QT 439 T 58 QTc 397 Conclusion Sinus bradycardia...rate< 50 Low voltage, extremity leads...all extremity leads <0.5mV Otherwise normal ECG
== END 2022-05-01 13:54 | disposition home or self-care (01) ==
LOC: DI.CM 13:54
PROVIDERS: PCP Nurse Practitioner Family; Visit Provider Nurse Practitioner Family
DX: I48.91 Unspecified atrial fibrillation (principal); R00.1 Bradycardia, unspecified
CPT/HCPCS: 93010

== ENCOUNTER 2022-05-19 11:02 | Outpatient (CLI) | payer MEDICARE, SELFPAY ==
--- NOTE | 2022-05-19 11:00 | RT.EKG_ITS ---
APPROVED REPORT Exam: Resting ECG Reason for Exam: AFIB Patient Location: O HR:57 bpm ECG Measurements Heart Rate 57 AXIS [place] 164 P 31 QRSd 90 QRS 46 QT 419 T 42 QTc 408 Conclusion Sinus rhythm...normal P axis, V-rate 50- 99 Low voltage, extremity leads...all extremity leads <0.5mV Poor R wave progression
== END 2022-05-19 11:03 | disposition home or self-care (01) ==
LOC: DI.CARD 11:06
PROVIDERS: PCP Nurse Practitioner Family; Referring Provider Nurse Practitioner Family; Visit Provider Internal Medicine Cardiovascular Disease
DX: I48.91 Unspecified atrial fibrillation (principal)
CPT/HCPCS: 93010; 99202

== ENCOUNTER → 2022-05-19 11:02 | Outpatient (BNVA) | payer MEDICARE, SELFPAY | PROVIDERS: PCP Nurse Practitioner Family; Referring Provider Nurse Practitioner Family; Visit Provider Internal Medicine Cardiovascular Disease | DX: I48.0 Paroxysmal atrial fibrillation (principal); I10 Essential (primary) hypertension | CPT/HCPCS: 99213 ==

== ENCOUNTER 2022-11-21 02:31 | Outpatient (CLI) | payer MEDICARE, SELFPAY ==
[2022-11-21 13:00] LABS: HCT 40.2 % (40.0-50.0); HGB 13.6 g/dL (13.5-17.5); MCH 31.6 pg (27.0-33.0); MCHC 33.8 % (32.0-36.0); MCV 94 fL (80-95); MPV 9.6 fL (8.0-11.0); Platelet Count 297 10^3/uL (130-400); RDW 13.4 % (11.8-14.1); RDW-SD 46.1 fL; WBC 7.41 10^3/uL (4.4-10.8)
[2022-11-21 13:19] LABS: Hemoglobin A1C 5.6 % (<5.7)
[2022-11-21 13:34] LABS: ALT 29 U/L (16-63); AST 13 U/L (15-37); Albumin 3.7 g/dL (3.4-5.0); Alkaline Phosphatase 49 U/L (46-116); Anion Gap 8.2 mmol/L (3-11); BUN 31 mg/dL (7-18); Bilirubin, Total 0.3 mg/dL (0.2-1.0); CO2 25.8 mmol/L (21.0-32.0); CREATININE 0.8 mg/dL (0.70-1.30); Calcium 9.4 mg/dL (8.5-10.1); Calculated LDL 63 mg/dL (<100); Chloride 106 mmol/L (98-107); Cholesterol 118 mg/dL (<200); Glucose 95 mg/dL (74-106); HDL Cholesterol 45 mg/dL (40-60); Potassium 4.4 mmol/L (3.5-5.1); Sodium 140 mmol/L (136-145); Triglyceride 51 mg/dL (<150)
[2022-11-21 22:54] LABS: PSA, Screening 1.8 ng/mL (<=4.5)
== END 2022-11-21 02:32 | disposition home or self-care (01) ==
LOC: LOS 02:31
PROVIDERS: PCP Nurse Practitioner Family; Visit Provider Nurse Practitioner Family
DX: I10 Essential (primary) hypertension (principal); R73.03 Prediabetes; I48.91 Unspecified atrial fibrillation; J44.9 Chronic obstructive pulmonary disease, unspecified; F17.210 Nicotine dependence, cigarettes, uncomplicated; Z12.5 Encounter for screening for malignant neoplasm of prostate
CPT/HCPCS: 36415; 80053; 80061; 84153; 85027; 83036

== ENCOUNTER → 2023-02-06 08:42 | Outpatient (BNVA) | payer MEDICARE, SELFPAY | PROVIDERS: PCP Nurse Practitioner Family; Visit Provider Urology | DX: Z85.51 Personal history of malignant neoplasm of bladder (principal) | CPT/HCPCS: 52000; 81003 ==

== ENCOUNTER → 2023-03-22 02:48 | Outpatient (CLI) | payer MEDICARE, SELFPAY ==
--- NOTE | 2023-03-22 07:00 | DI.RAD_ITS ---
Exam(s) XR LUMBAR SPINE COMPLETE EXAM: XR LUMBAR SPINE COMPLETE CLINICAL HISTORY: low back pain,m54.50. TECHNIQUE: 2D digital imaging was performed. Five views. COMPARISON: No exams were available for comparison FINDINGS: BONES: No fracture or destructive lesion. Vertebral body heights are maintained. Cysts facet degener ative changes at L4-5 and L5-S1. Slight spondylolisthesis at L4-5 DISKS: Severe narrowing of the L5-S1 disc space. Endplate osteophytes. The remaining intervertebral disc spaces are maintained. ALIGNMENT: Lumbar spinal alignment is within normal limits. SOFT TISSUE: Aorta and iliac arteries are calcified. IMPRESSION: Severely degenerative disc changes at L5-S1. Facet degenerative changes L4-5 and L5-S1. DATA REPOSITORY: RADIATION DOSE DELIVERED:
--- NOTE | 2023-03-22 07:00 | DI.RAD_ITS ---
Exam(s) XR KNEE RT 3V AP,LAT,ELIAS EXAM: XR KNEE RT 3V AP,LAT,ELIAS CLINICAL HISTORY: right knee pain,M25.561. TECHNIQUE: 2D digital imaging was performed. Three views. COMPARISON: No exams were available for comparison FINDINGS: BONES: No acute fracture is present. No bony destructive lesion is seen. JOINTS: The knee is normally aligned. No joint effusion is seen. SOFT TISSUE: Normal. IMPRESSION: Unremarkable radiographs of the right knee. DATA REPOSITORY: RADIATION DOSE DELIVERED:
== END ==
PROVIDERS: PCP Nurse Practitioner Family; Visit Provider Nurse Practitioner Family
DX: M51.27 Other intervertebral disc displacement, lumbosacral region (principal); M25.561 Pain in right knee
CPT/HCPCS: 73562; 72110

== ENCOUNTER 2023-03-23 02:31 | Outpatient (CLI) | payer MEDICARE, SELFPAY ==
[2023-03-23 12:50] LABS: Abs Immature Grans 0.07 10^3/uL (0.0-0.06); Absolute Basophil Count 0.02 10^3/uL (0.0-0.2); Absolute Eosinophil Count 0.01 10^3/uL (0.0-0.7); Absolute Lymphocyte Count 1.67 10^3/uL (1.2-3.4); Absolute Monocyte Count 0.81 10^3/uL (0.1-0.8); Absolute Neutrophil Count 8.12 10^3/uL (1.2-6.7); Basophils % 0.2; Eosinophils % 0.1; HGB 14.7 g/dL (13.5-17.5); Immature Grans % 0.7; Lymphocytes % 15.6; MCH 30.8 pg (27.0-33.0); MCHC 32.7 % (32.0-36.0); MCV 94 fL (80-95); MPV 9.2 fL (8.0-11.0); Monocytes % 7.6; Neutrophils % 75.8; Platelet Count 304 10^3/uL (130-400); RBC 4.77 10^6/uL (4.36-5.78); RDW 13.3 % (11.8-14.1); RDW-SD 46.5 fL
[2023-03-26 12:13] LABS: Lyme Ab w Rflx to Lyme Confirm Negative (Negative)
[2023-03-26 16:39] LABS: Anaplasma phagocytophilum Negative (Negative); B. miyamotoi PCR Negative (Negative); Babesia divergens/MO-1 Negative (Negative); Babesia duncani Negative (Negative); Babesia microti Negative (Negative); Ehrlichia chaffeensis Negative (Negative); Ehrlichia ewingii/canis Negative (Negative); Ehrlichia muris eauclairensis Negative (Negative)
== END 2023-03-23 02:32 | disposition home or self-care (01) ==
LOC: LOS 02:31
PROVIDERS: PCP Nurse Practitioner Family; Visit Provider Nurse Practitioner Family
DX: W57.XXXA Bitten or stung by nonvenomous insect and other nonvenomous arthropods, initial encounter (principal); I10 Essential (primary) hypertension
CPT/HCPCS: 36415; 87798; 85025; 86618

== ENCOUNTER → 2023-06-05 10:34 | Outpatient (BNVA) | payer MEDICARE, SELFPAY | PROVIDERS: PCP Nurse Practitioner Family; Referring Provider Nurse Practitioner Family; Visit Provider Internal Medicine Cardiovascular Disease | DX: I48.0 Paroxysmal atrial fibrillation (principal); I10 Essential (primary) hypertension | CPT/HCPCS: 99213 ==

== ENCOUNTER → 2023-07-12 13:30 | Outpatient (BNVA) | payer MEDICARE, SELFPAY | PROVIDERS: PCP Nurse Practitioner Family; Referring Provider Nurse Practitioner Family; Visit Provider Physical Therapy Assistant | DX: Z12.11 Encounter for screening for malignant neoplasm of colon (principal); Z86.010 Personal history of colon polyps ==

== ENCOUNTER 2023-07-23 10:23 | Day surgery (SDC) | payer MEDICARE, SELFPAY ==
--- NOTE | 2023-07-22 18:44 | W.PM.DSUDISC ---
Date of service: 07/23/23 Time of Service: 13:03 Discharge Plan Disposition Patient Disposition: Home Condition: Good Discharge Details Reason For Visit: screening colonoscopy Attending Provider: Candelario Farias Primary Care Provider: Lisbet Viera Home Meds and New Rx's Prescriptions: Continued atorvastatin 40 mg tablet 40 mg PO QPM Qty: 90 4RF nicotine (polacrilex) [Nicorette] 4 MG gum 1 piece of gum PO Q2H PRN amlodipine 10 mg tablet See Rx Instructions .ROUTE .COMPLEX Qty: 90 3RF Dose Instruction: TAKE ONE TABLET BY MOUTH EVERY DAY Rx Instructions: TAKE ONE TABLET BY MOUTH EVERY DAY Anoro Ellipta 62.5-25 mcg/actuation blister with device 1 inh IH Q24H Qty: 60 11RF Arnuity Ellipta 100 mcg/actuation blister with device 1 inh inhalation DAILY Qty: 30 3RF gabapentin 100 mg capsule 200 mg PO TID Qty: 90 1RF bisoprolol fumarate 5 mg tablet 10 mg PO DAILY Qty: 180 4RF cyclobenzaprine 5 mg tablet 5 mg PO TID PRN (Reason: back pain) Qty: 30 0RF Rx Instructions: Take 1 tablet by mouth three times a day as needed for back pain acetaminophen [Tylenol] 325 MG tablet 650 mg PO Q6H PRN PRNQty: 30 0RF ascorbic acid (vitamin C) [Vitamin C] 500 mg Tablet 1,000 mg PO BID Qty: 30 0RF levalbuterol tartrate 45 mcg/actuation Hfa Aerosol Inhaler 2 puff inhalation Q4H PRN PRN (Reason: shortness of breath or wheezing) Qty: 15 0RF Held Eliquis 5 mg tablet 5 mg PO BID Qty: 180 4RF Hold Instructions: Resume on 07/24/23. Discontinued bisacodyl [Dulcolax (bisacodyl)] 5 mg tablet,delayed release (DR/EC) 5 mg PO ONCE Qty: 4 0RF Rx Instructions: Take per colonoscopy instructions provided by ordering providers office polyethylene glycol 3350 17 gram/dose powder 17 g PO ONCE Qty: 238 0RF Rx Instructions: Take per colonoscopy instructions provided by ordering providers office Discharge Instructions Instructions: Colon polyps, Diverticulosis (DC), High-fiber diet Additional Instructions: Edilberto, we are able to complete your colonoscopy today. Hopefully you are comfortable. I did find and removed 2 polyps today. Both of these were small, and there is nothing worrisome to the naked eye. Both will be sent off for testing, and once we know the nature of the polyp, the office will be in touch regarding recommendations for the timing of your next colonoscopy. Incidentally, he also have quite a bit of diverticulosis. Diverticula are little weak spots or pockets in the muscular portion of the colon wall. They can get infected or inflamed. When that happens, we caught diverticulitis. This is often times felt that sharp pain, typically on the left side of the abdomen or down across the middle. Patients are usually quite sick during diverticulitis flares, and usually treated with antibiotics. Hopefully, you are still bother you. Have attached some basic information here regarding typical approaches to diverticular disease. Because of the polyp removal today, I think you to hold the Eliquis until tomorrow. At that point, you can restart it as you normally take it. If you have any questions in the meantime, please do not hesitate to ask at any point. 1. If tolerated, consume a soft, low fiber diet for 1-2 days. 2[address] Do not drive, drink alcohol, operate machinery, make critical decisions, or do activities that require coordination or balance for 24 hours. 3. Because air was put into your colon during the procedure, expelling air from your rectum (passing gas or farting) is normal. 4. You may not have a bowel movement for 1-3 days because of the colonoscopy prep. This is normal. 5. Go directly to the emergency room if you notice any of the following: Develop chills (warm to touch), or if you have a thermometer and your temperature is above 101 Difficulty breathing or difficultly swallowing Persistent vomiting Severe abdominal pain, other than gas cramps Severe chest pain Black, tarry stools Any bleeding ? exceeding one tablespoon 6. Call your physician if the site where your intravenous was started becomes red, swollen, painful, and warm to touch. 7. Your physician has reviewed your pre-procedure medications. Please continue to take those medications as previously ordered. You will be given specific information/education regarding any changes to your medications before leaving. Stand Alone Forms: Anesthesia Discharge Darren Solis (CEZAR) Activity:: Activity as Tolerated Diet:: As Tolerated Discharge Orders Discharge Orders: Discharge Order (Routine); Ordered 07/22/23 Ordered By: Candelario Farias DS: Diagnosis Discharge Diagnosis (1) Encounter for screening colonoscopy: Status: Acute Asessment and Plan: Follow-up on polypectomy results
--- NOTE | 2023-07-22 18:46 | COLE_ITS ---
Date of service: 07/23/23 Time of Service: 13:08 Colonoscopy Report Date of procedure: 07/23/23 Pre-op diagnosis general: screening colonoscopy Post-op diagnosis procedure note: other (Diverticulosis, colon polyps) Procedure: colonoscopy Surgeon: Candelario Farias Anesthesia Type: General:No Airway Estimated blood loss (mL): 10 Pathology: other (0.25 cm cecal polyps x 2, 0.5 cm polyp at 100 cm) Complications: None Disposition: same day Indications: Edilberto is a 68 year old man with a history of tubular adenomas who needs his next screening colonoscopy Prep: Miralax/Dulcolax Procedure Start Time: 12:12 Procedure End Time: 12:51 Retraction Time: 19 Findings: Extensive diverticulosis, 0.25 cm cecal polyps x 2, 0.5 cm polyp at 100 cm Procedure Description: After the induction of anesthesia, and with the patient in left lateral de cubitus position, I began by performing an external anorectal exam.? There are some perianal skin tags.? Next, I performed a digital rectal exam.? I did not appreciate any abnormal findings.? Next, I advanced a colonoscope into the rectal vault.? I performed retroflexion.? This is normal.? Using insufflation, I then advanced the colonoscope beyond the rectal folds and into the sigmoid colon before advancing towards the cecum.? There is extensive cavernous sigmoid diverticulosis, and diverticular disease extending through other segments of the colon. Great care was taken to maintain the true lumen.? The scope was noted to be in the cecum by identification of the ileocecal valve and appendiceal orifice.? Within the cecum were 2 polyps. These were just centimeters away from 1 another. Each was less than 0.25 cm, and both were removed with cold forceps without issue. Also found another flat polyp at 100 cm. This was about 0.5 cm. This was removed in piecemeal with cold forceps as well. There was minimal bleeding. I then began withdrawing the colonoscope using repeated irrigation as necessary for full evaluation of the colonic mucosa. ?Once the scope was withdrawn to the level of the rectum, great care was taken to examine portions of the rectal folds.? Finally, the scope was withdrawn and the patient was brought to the same-day surgery recovery unit as the anesthetic wore off. ?The findings and instructions were shared with the patient prior to discharge. [place] Bowel Prep [place] Bowel Prep Right Colon: 3 Left Colon: 3 Transverse Colon: 3 Total Score: 9
[2023-07-23 10:52] VITALS: BP 105/54; PULSE 60; RESP 18; TEMP 36.3; O2SAT 95
[2023-07-23] MEDS: Lactated Ringers 1,000 ML 80 ML IV (11:08)
--- NOTE | 2023-07-23 11:26 | ANES.PREOP_ITS ---
General Info Date of Service Date Performed: 07/23/23 Height: 5 ft 9 in Weight: 75.6 kg Body Mass Index (BMI): 24.6 Surgical Procedure: Operation Date: 07/23/23 12:35 Proposed Procedure Side Surgeon valentín Farias MD Meds Allergies and Home Medications Allergies Allergy/AdvReac Type Severity Reaction Status Date / Time lisinopril AdvReac Severe Hyperkalemi Verified 07/23/23 10:42 a Home Medication Medication Instructions Recorded nicotine (polacrilex) 4 mg gum 1 piece of gum PO Q2H PRN 06/12/12 (Nicorette) acetaminophen 325 mg tablet 650 mg (2 x 325 mg) PO Q6H PRN PRN 08/09/17 (Tylenol) #30 tabs ascorbic acid (vitamin C) 500 mg 1,000 mg (2 x 500 mg) PO BID #30 01/12/21 tablet (Vitamin C) tabs levalbuterol tartrate 45 2 puff inhalation Q4H PRN PRN 01/12/21 mcg/actuation aerosol inhaler shortness of breath or wheezing #15 grams atorvastatin 40 mg tablet 40 mg PO QPM #90 tabs 05/01/22 amlodipine 10 mg tablet See Rx Instructions .Route 10/26/22 .COMPLEX #90 tabs umeclidinium 62.5 mcg-vilanterol 1 inh inhalation Q24H #60 ea 02/26/23 25 mcg/actuation powdr for inhalation (Anoro Ellipta) fluticasone furoate 100 1 inh inhalation DAILY #30 ea 04/16/23 mcg/actuation blister powder for inhalation (Arnuity Ellipta) apixaban 5 mg tablet (Eliquis) 5 mg PO BID #180 tabs 04/19/23 bisoprolol fumarate 5 mg tablet 10 mg (2 x 5 mg) PO DAILY #180 tabs 04/19/23 gabapentin 100 mg capsule 200 mg (2 x 100 mg) PO TID #90 caps 04/19/23 cyclobenzaprine 5 mg tablet 5 mg PO TID PRN back pain #30 tabs 05/10/23 Current Visit Medications: Current Medications Generic Name Dose Route Start Last Admin Trade Name Freq PRN Reason Stop Dose Admin Hyoscyamine Sulfate 0.125 mg 07/22/23 18:47 Hyoscyamine 0.125 Mg Sl/Oral/Chew SL 08/21/23 18:46 DIRECTED PRN Ringer's Solution 1,000 mls @ 80 mls/hr 07/23/23 06:00 07/23/23 11:08 IV 08/19/23 23:59 80 mls/hr INFUSION JENNY Administration IV Miscellaneous Supplies 1 each 07/23/23 06:00 Iv Access IV 08/19/23 23:59 DIRECTED JENNY Ondansetron HCl 4 mg 07/22/23 18:47 Ondansetron 4 Mg/2 Ml Vial IVP 08/21/23 18:46 Q4H PRN PRN Nausea / Vomiting Sodium Chloride 0 ml 07/23/23 06:00 Normal Saline Flush 10 Ml Syr IV 08/19/23 23:59 PRN PRN Sodium Chloride 0 ml 07/23/23 06:00 Normal Saline 10 Ml Vial IJ 08/19/23 23:59 DIRECTED PRN Sterile Water 0 ml 07/23/23 06:00 Water,Injection,Sterile 10 Ml Vial IJ 08/19/23 23:59 DIRECTED PRN PFSH Active Problems Active Problems: Problem Status Onset Code Encounter for screening colonoscopy Z12.11 Paroxysmal atrial fibrillation I48.0 Tubular adenoma ~11/2019 D36.9 Nicotine dependence F17.200 COPD (chronic obstructive pulmonary disease) J44.9 Essential hypertension I10 Medical History Medical History Bladder cancer Atrial fibrillation with RVR COVID Left nasal polyps (03/17/16) Inguinal hernia without obstruction or gangrene (07/04/17) History of bladder cancer (01/07/16) Onset age 39- diagnosed early, 01/2020- recurrence, seeing urology Q6 months 2021- seeing once a year Surgical History Surgical History Colonoscopy - IV Sedation 2014-hyperplastic polyp Bilateral Inguinal Hernia Repair Tobacco Smoking/Tobacco Use Status: Former Tobacco Use Passive smoking exposure: Yes Second hand exposure: Yes Alcohol Alcohol Intake: current Alcohol intake frequency: holidays/special occasions only Substance Use Substance use: Never Substance use type: does not use Vital Signs and Lab Results Vital Signs Most Recent Vital Signs in EMR: Most Recent Vital Signs Temp Pulse Resp BP Pulse Ox 36.3 C L 60 18 105/54 L 95 07/23/23 10:52 07/23/23 10:52 07/23/23 10:52 07/23/23 10:52 07/23/23 10:52 Lab Results Blood Type / Crossmatch: No Data to Display Complete Blood Count: No Data to Display Complete Metabolic Panel: No Data to Display Liver Function Panel: No Data to Display Coagulation Panel: No Data to Display Cardiac Panel: No Data to Display Arterial Blood Gas: No Data to Display Venous Blood Gas: No Data to Display Pancreas Panel: No Data to Display Thyroid Panel: No Data to Display Infectious Disease: No Data to Display Blood Cultures: No Data to Display Toxicology Panel: No Data to Display Imaging and Studies Imaging and Studies Study information below may be from another EMR and interpreted by another provider. Please see original notes in EMR for more complete details. EKG Summary: 05/19/2022: Exam: Resting ECG Reason for Exam: AFIB Patient Location: O HR:57 bpm ECG Measurements Heart Rate 57 AXIS ND 164 P 31 QRSd 90 QRS 46 QT 419 T42 QTc 408 Conclusion Sinus rhythm...normal P axis, V-rate 50- 99 Low voltage, extremity leads...all extremity leads <0.5mV Poor R wave progression Echocardiogram Summary: 01/07/2021: EXAM: Comprehensive 2D, Doppler, and color- flow Echocardiogram Patient Location: In-Patient Room/Bed: [facility] [place] [facility] Adult Physician: Laury Leija RDCS (AE) Indications: COVID, A Fib, HTN, COPD, Evaluate LV, High BNP Other Information Study Quality: Fair. Technically limited study due to body habitus, inability to position patient. Conclusion Technically difficult study. The patient was in atrial fibrillation at an uncontrolled rate throughout Normal left ventricular wall thickness and chamber size. Estimated ejection fraction is 55 to 60%. Wall motion appeared normal The right ventricle appears mildly dilated with preserved systolic function Both atria are normal in size There is no structural or hemodynamically significant valvular disease Right ventricular systolic pressure could not be estimated Pulmonary Function Summary: 11/08/2017: PULMONARY FUNCTION TEST REPORT Patient identification - Jaison Quezada DATE OF - 53 DATE OF SERVICE - November 08, 2017 REQUESTING PROVIDER Lisa Barillas NP INTERPRETATION OF STUDY Spirometry shows severe obstructive airways disease with significant bronchodilator response. LUNG VOLUMES - Lung volumes show no evidence of restriction. There is moderate hyperinflation and air trapping. DIFFUSION CAPACITY - Mildly reduced even when corrected to alveolar volume. AIRWAY RESISTANCE - Elevated. IMPRESSION Severe obstructive airways disease with significant bronchodilator response. This is associated with moderate hyperinflation and air trapping and mild diffusion defect. Clinical correlation recommended. Lucinda Mcginnis M.D. AMBER/jamie Anesthesia Assessment and Plan Anesthesia History Personal History: No History of Anesthesia Complications Family History: No Family History of Anesthesia Complications Exercise Tolerance Exercise Tolerance: Metabolic Equivalents>4 Pertinent Negatives Pertinent Negatives: No Major Cardiovascular Symptoms or Complaints Cardiac & Pulmonary Exam Cardiac Exam: Normal S1/S2 Heart Sounds Pulmonary Exam: Clear Bilateral Breath Sounds Implantable Cardiac Device Does patient have a Pacemaker or an ICD?: No Airway Exam Known Difficult Airway: No Mallampati Class: 3 Mouth Opening: Normal (> 3cm) Thyromental Distance: Greater than 3 cm Facial Hair: Full Alvarez Neck Range of Motion: Full ROM Neck Circumference: Normal Teeth Condition: Normal Dentition ASA Classification ASA Score: ASA 3 Emergency Case?: No NPO Status NPO Status: NPO Clears >2 hours, Solids >8 hours Anesthesia Plan Resuscitation Status: Full Code Anesthesia Technique: General Anesthesia Airway Planned: Natural Airway Monitors Used: Standard Monitors
[2023-07-23 11:52] VITALS: BMI 24.6
--- NOTE | 2023-07-23 12:40 | BOWEL_PTH ---
PATIENT: Jaison Quezada LOC: [facility] U#:[id number] AGE/SX: 68/M ROOM: RE07/23/[address]: Candelario Farias MD : [id number] BED: DIS: 07/23/2023 SPEC #: [id number] RECD: 07/23/23 13:19 STATUS: [facility] #: [id number] JULIOCESAR: 07/23/23 12:[address]: Candelario Farias DEPT: Surgical Specimen RECD BY: Marsha Jordan ENTERED: 07/23/23 13:21 SP TYPE: Bowel OTHR DR: Lisbet Viera, WAYNE Tissues: 1 - BIOPSY BOWEL 2 - BIOPSY BOWEL Procedures: GROSS AND MICRO LEVEL 4 Comments: [id number]
[2023-07-23 12:59] VITALS: BP 109/66; PULSE 66; RESP 16; TEMP 36.1; O2SAT 99
--- NOTE | 2023-07-23 13:18 | W.ANESPOSTOP ---
Postoperative Evaluation Date, Time and Location Date Performed: 07/23/23 Time Performed: 13:19 Patient Location: Day Surgery Unit Vital Signs Most Recent Imported Vital Signs: Most Recent Vital Signs Temp Pulse Resp BP Pulse Ox 36.1 C L 66 16 109/66 99 07/23/23 12:59 07/23/23 12:59 07/23/23 12:59 07/23/23 12:59 07/23/23 12:59 Pain Score Most Recent Pain Score: Most Recent Pain Score Pain Level 0 07/23/23 12:59 Assessment Mental Status: Awake (Alert & Oriented to Patient Baseline) Airway and Respiratory Function: Patent airway with normal (patient baseline) respiratory exam Cardiovascular Function: Hemodynamically Stable Hydration Status: Adequately Hydrated Nausea & Vomiting: No Nausea or Vomiting Pain: Pt. Denies Any Pain Peripheral Nerve Block: Patient did not receive a nerve block
[2023-07-23 13:30] VITALS: BP 125/62; PULSE 45; RESP 15; TEMP 36.1; O2SAT 97
== END 2023-07-23 14:10 | disposition home or self-care (01) ==
LOC: SUR 10:24
PROVIDERS: PCP Nurse Practitioner Family; Visit Provider Surgery
PROC: 0DJD8ZZ Inspection of Lower Intestinal Tract, Via Natural or Artificial Opening Endoscopic (ICD-10-PCS; CPT 45378; principal; 2023-07-23 12:30)
DX: Z12.11 Encounter for screening for malignant neoplasm of colon (principal); I10 Essential (primary) hypertension; F17.210 Nicotine dependence, cigarettes, uncomplicated; K57.30 Diverticulosis of large intestine without perforation or abscess without bleeding; D12.0 Benign neoplasm of cecum; D12.3 Benign neoplasm of transverse colon
CPT/HCPCS: 45380; 88305; J2001; J2704

== ENCOUNTER 2023-12-19 02:13 | Outpatient (CLI) | payer MEDICARE, SELFPAY ==
[2023-12-19 12:42] LABS: Anion Gap 8.3 mmol/L (3-11); BUN 32 mg/dL (7-18); CO2 28.7 mmol/L (21.0-32.0); CREATININE 1.2 mg/dL (0.70-1.30); Calculated LDL 54 mg/dL (<100); Chloride 108 mmol/L (98-107); Cholesterol 124 mg/dL (<200); Estimated GFR 65.46 (mL/min/1.73m2); Glucose 81 mg/dL (74-106); HDL Cholesterol 57 mg/dL (40-60); Potassium 4.3 mmol/L (3.5-5.1); Sodium 145 mmol/L (136-145); Triglyceride 66 mg/dL (<150)
[2023-12-19 18:53] LABS: PSA, Screening 2.5 ng/mL (<=4.5)
== END 2023-12-19 02:14 | disposition home or self-care (01) ==
LOC: LOS 02:13
PROVIDERS: PCP Nurse Practitioner Family; Visit Provider Nurse Practitioner Family
DX: I10 Essential (primary) hypertension (principal); N40.0 Benign prostatic hyperplasia without lower urinary tract symptoms; I48.0 Paroxysmal atrial fibrillation; J42 Unspecified chronic bronchitis; Z85.51 Personal history of malignant neoplasm of bladder; I48.91 Unspecified atrial fibrillation
CPT/HCPCS: 36415; 80048; 80061; 84153

== ENCOUNTER 2023-12-27 13:33 | Outpatient (CLI) | payer MEDICARE, SELFPAY ==
--- NOTE | 2023-12-27 13:30 | RT.EKG_ITS ---
APPROVED REPORT Exam: Resting ECG Reason for Exam: Express care f/u Patient Location: O HR:59 bpm ECG Measurements Heart Rate 59 AXIS IL 155 P 39 QRSd 96 QRS 64 QT 428 T 59 QTc 424 Conclusion Sinus rhythm...normal P axis, V-rate 50- 99 Low voltage, extremity leads...all extremity leads <0.5mV Otherwise normal ECG
== END 2023-12-27 13:34 | disposition home or self-care (01) ==
LOC: DI.CM 13:35
PROVIDERS: PCP Nurse Practitioner Family; Visit Provider Nurse Practitioner Family
DX: R42 Dizziness and giddiness (principal)
CPT/HCPCS: 93010

== ENCOUNTER 2024-01-01 02:39 | Outpatient (CLI) | payer MEDICARE, SELFPAY ==
[2024-01-01 12:33] LABS: Abs Immature Grans 0.01 10^3/uL (0.0-0.06); Absolute Basophil Count 0.02 10^3/uL (0.0-0.2); Absolute Eosinophil Count 0.13 10^3/uL (0.0-0.7); Absolute Lymphocyte Count 2.36 10^3/uL (1.2-3.4); Absolute Monocyte Count 0.51 10^3/uL (0.1-0.8); Absolute Neutrophil Count 2.59 10^3/uL (1.2-6.7); Basophils % 0.4 %; Eosinophils % 2.3 %; HCT 40.4 % (40.0-50.0); HGB 13.3 g/dL (13.5-17.5); Immature Grans % 0.2 %; MCH 31.7 pg (27.0-33.0); MCHC 32.9 % (32.0-36.0); MCV 96 fL (80-95); MPV 9.5 fL (8.0-11.0); Monocytes % 9.1 %; Platelet Count 243 10^3/uL (130-400); RDW 13.4 % (11.8-14.1); WBC 5.62 10^3/uL (4.4-10.8)
[2024-01-01 13:07] LABS: ALT 27 U/L (16-63); AST 14 U/L (15-37); Albumin 3.5 g/dL (3.4-5.0); Alkaline Phosphatase 46 U/L (46-116); BUN 30 mg/dL (7-18); Bilirubin, Total 0.38 mg/dL (0.2-1.0); Calcium 8.9 mg/dL (8.5-10.1); Chloride 111 mmol/L (98-107); Estimated GFR 81.47 (mL/min/1.73m2); Glucose 96 mg/dL (74-106); NT-proBNP 44 pg/mL (<300); Sodium 146 mmol/L (136-145); TSH (W/Ref FT4) 3.52 uIU/mL (0.36-3.74); Total Protein 6.7 g/dL (6.4-8.2)
== END 2024-01-01 02:40 | disposition home or self-care (01) ==
LOC: LOS 02:40
PROVIDERS: PCP Nurse Practitioner Family; Visit Provider Nurse Practitioner Family
DX: I48.0 Paroxysmal atrial fibrillation (principal); E16.2 Hypoglycemia, unspecified; R60.0 Localized edema; R06.02 Shortness of breath
CPT/HCPCS: 36415; 80053; 83880; 84443; 85025

== ENCOUNTER 2024-01-15 00:54 | Outpatient (CLI) | payer MEDICARE, SELFPAY ==
--- NOTE | 2024-01-15 12:33 | DI.US_ITS ---
APPROVED REPORT EXAM: Comprehensive 2D, Doppler, and color-flow Echocardiogram Patient Location: Out-Patient [employer] Supervisor: Laury Leija RDCS (AE) Indications: A FIB Other Information Study Quality: Adequate Conclusion Normal left ventricular wall thickness and chamber size. Ejection fraction is 60%. Wall motion is n ormal Normal right ventricular size and function Both atria are normal in size Aortic valve is mildly sclerotic and trileaflet without stenosis or regurgitation Mildly thickened mitral leaflets, mild mitral regurgitation Wall motion Left Ventricle The left ventricle is normal size. The left ventricular systolic function is normal. The left ventric ular ejection fraction is within the normal range. There is normal left ventricular wall thickness. T here is normal LV segmental wall motion. There is no ventricular septal defect visualized. LVEF is 60 %. Right Ventricle The right ventricle is normal size. The right ventricular systolic function is normal. Atria The left atrium size is normal. The right atrium size is normal. The interatrial septum is intact wit h no evidence for an atrial septal defect. Aortic Valve Mild aortic valve sclerosis Aortic valve is trileaflet. There is no aortic valvular stenosis. No aort ic regurgitation is present. Mitral Valve Mildly thickened mitral leaflets No evidence of mitral valve stenosis. Trace mitral regurgitation. Tricuspid Valve The tricuspid valve is normal in structure. There is no tricuspid valve stenosis. Trace tricuspid reg urgitation. Unable to assess PA pressure. Pulmonic Valve The pulmonary valve is normal in structure. There is no pulmonic valvular stenosis. There is no pulmo abi valvular regurgitation. Great Vessels The aortic root is normal in size. Ascending aorta is normal in caliber. Aortic arch is normal in marta iber. IVC is normal in size and collapses >50% with inspiration. Pericardium There is no pericardial effusion. 2D Dimensions IVSD d PLAX 0.80 cm M: 0.6-1.2 Ao Root d 2.87 cm M: 3.1 - 3.7 LVPW d PLAX 0.80 cm M: 0.6 - 1.2 Ao Asc Diam d 2.95 cm M: 2.6 - 3.4 LVID d PLAX 4.60 cm M: 4.2 - 5.8 LVDs 3.04 cm M: 2.5 - 4.0 LV EF Teichholz 62.8 % FS 33.88 % LV EDV (Teich) 96.9 mL LV ESV (Teich) 36.0 mL M-Mode TAPSE 2.43 cm (M/F) >1.7 Auto EF LV EDV A4C 111.4 mL LV EDV A2C 122.8 mL LV EDV BP 117.3 mL LV ESV A4C 43.2 mL LV ESV A2C 49.3 mL LV ESV BP 46.2 mL LVEF(%) A4C 61.2 % LVEF(%) A2C 59.9 % LVEF(%) BP 60.6 % LV SV A4C 68.2 ml LV SV A2C 73.5 ml LV SV BP 71.0 ml LV CO A4C 3.8 L/min LV CO A2C 4.3 L/min LV CO BP 4.1 L/min HR A4C 56.17 BPM HR A2C 58.54 BPM LV EDV Index (BP) LA Volume LA Length A4C 4.5 cm LA Length A2C 5.0 cm LA Area A4C s 13.90 cm2 LA Area A2C s 19.69 cm2 LA Vol A4C A-L 36.08 mL LA Vol A2C A-L 65.64 mL LA Vol Biplane A-L 51.1 mL LA Vol/BSA A4C A-L LA Vol/BSA A2C A-L LA Vol/BSA BP A-L 27.0 mL/m2 LA Vol A4C MOD 31.4 mL LA Vol A2C MOD 61.1 mL LA Vol BP MOD 45.4 mL RA Volume RA Area A4C 11.2 cm2 RA ESV A4C (A-L) 24.3mL RA Vol/BSA A4C A-L RA Length A4C 4.4 cm RA ESV A4C (MOD) 23.2mL LV Diastology MV E' medial 0.083 (>0.07 m/s) MV E Vmax 0.68 (0.4-1.3 m/s) MV E/E' MED 8.15 (<14) MV A Vmax 0.75 (0.4-1.3 m/s) MV E' lateral 0.121 (>0.1 m/s) E/A Ratio 0.9 MV E/E' LAT 5.57 (<14) MV E' Average 0.102 m/s MV E/E'(average) 6.61 Aortic Valve AoV Vmax 1.15 m/s LVOT Vmax 0.98 m/s AoV Peak Grad 5.3 mmHg LVOT Peak Grad 3.8 mmHg AoV Area (Vmax) 2.74 cm2 LVOT VTI 0.245 m AoV VTI 0.301 m LVOT Mean Grad 2.3 mmHg AoV Mean Alan. 0.82 m/s LVOT SV 79.15 mL AoV Mean Grad 3.0 mmHg LVOT Diam s 2.00 cm AoV Area (VTI) 2.63 cm2 AV Regurg Peak Gr. 5.26 mmHg Velocity Ratio 0.85 Mitral Valve MV DT 225 (160-240 msec) MV Vmax TIPS 0.76 m/s MV Mean Grad 0.9 (<2mmHg) MV VTI 0.270 m Pulmonary Valve PV Vmax 0.90 (0.5-1.5 m/s) RVOT Vmax 0.65 m/s PV Peak Grad 3.3 mmHg RVOT Peak Gr. 1.7 mmHg PV Mean Alan 0.59 m/s RVOT VTI 0.161 m PV Mean Grad 1.6 mmHg RVOT Mean Gr. 0.7 mmHg Tricuspid Valve RA Pressure 3.00 mmHg TV S' 0.14 m/s
== END 2024-01-15 01:14 ==
LOC: DI 00:54
PROVIDERS: PCP Nurse Practitioner Family; Visit Provider Nurse Practitioner Family
DX: I48.0 Paroxysmal atrial fibrillation (principal)
CPT/HCPCS: 93306

== ENCOUNTER → 2024-02-12 08:36 | Outpatient (BNVA) | payer MEDICARE, SELFPAY | PROVIDERS: PCP Nurse Practitioner Family; Referring Provider Nurse Practitioner Family; Visit Provider Urology | DX: Z85.51 Personal history of malignant neoplasm of bladder (principal) | CPT/HCPCS: 52000; 81003; 99213 ==

== ENCOUNTER → 2024-06-03 10:36 | Outpatient (BNVA) | payer MEDICARE, SELFPAY | PROVIDERS: PCP Nurse Practitioner Family; Visit Provider Internal Medicine Cardiovascular Disease | DX: I48.0 Paroxysmal atrial fibrillation (principal) | CPT/HCPCS: 99213 ==

== ENCOUNTER 2024-11-25 00:22 | Outpatient (CLI) | payer MEDICARE, SELFPAY ==
--- NOTE | 2024-11-25 07:15 | DI.US_ITS ---
Exam(s) US AAA SCREENING EXAM: US AAA SCREENING CLINICAL HISTORY: screening for aaa, former smoker, [id number] COMPARISON: No exams were available for comparison FINDINGS: Abdominal Aorta: Proximal: 2.9 x 2.8 cm Mid: 2.0 x 2.1 cm Distal: 1.7 x 1.9 cm Iliac's: Right: 0.6 x 1.0 cm Left: 0.7 x 0.9 cm Atherosclerotic calcification is seen. IMPRESSION: No evidence of abdominal aortic aneurysm. DATA REPOSITORY:
== END 2024-11-25 00:42 ==
PROVIDERS: PCP Nurse Practitioner Family; Visit Provider Nurse Practitioner Family
DX: Z13.6 Encounter for screening for cardiovascular disorders (principal); F17.290 Nicotine dependence, other tobacco product, uncomplicated
CPT/HCPCS: 76706

== ENCOUNTER 2024-11-27 00:22 | Outpatient (CLI) | payer MEDICARE, SELFPAY ==
[2024-11-27 14:30] LABS: ALT 23 U/L (16-63); AST 11 U/L (15-37); Albumin 3.8 g/dL (3.4-5.0); Alkaline Phosphatase 48 U/L (46-116); Anion Gap 8.2 mmol/L (3-11); BUN 25 mg/dL (7-18); Bilirubin, Total 0.6 mg/dL (0.2-1.0); CO2 28.8 mmol/L (21.0-32.0); Calcium 8.8 mg/dL (8.5-10.1); Calculated LDL 72 mg/dL (<100); Chloride 104 mmol/L (98-107); Cholesterol 135 mg/dL (<200); Estimated GFR 72.22 (mL/min/1.73m2); Glucose 109 mg/dL (74-106); HDL Cholesterol 52 mg/dL (>or=40); Potassium 4.6 mmol/L (3.5-5.1); Sodium 141 mmol/L (136-145); Total Protein 6.7 g/dL (6.4-8.2); Triglyceride 57 mg/dL (<150)
[2024-11-27 23:59] LABS: PSA, Screening 2.1 ng/mL (<=6.5)
== END 2024-11-27 00:23 | disposition home or self-care (01) ==
LOC: LOS 00:22
PROVIDERS: PCP Nurse Practitioner Family; Visit Provider Nurse Practitioner Family
DX: I10 Essential (primary) hypertension (principal); Z00.00 Encounter for general adult medical examination without abnormal findings; F32.A Depression, unspecified; I48.0 Paroxysmal atrial fibrillation; J42 Unspecified chronic bronchitis; F17.290 Nicotine dependence, other tobacco product, uncomplicated; Z85.51 Personal history of malignant neoplasm of bladder; Z12.5 Encounter for screening for malignant neoplasm of prostate
CPT/HCPCS: 36415; 80053; 80061; 84153